=== PATIENT | female | born 1995 | race Caucasian/White ===

== ENCOUNTER → 2018-05-23 16:54 | Outpatient (CLI) | payer OTHER, SELFPAY ==
[2018-05-23 18:31] LABS: hCG Titer Quant., Serum 40669 mIU/mL (<9 non-preg)
== END ==
PROVIDERS: Referring Provider Obstetrics & Gynecology; Visit Provider Obstetrics & Gynecology
DX: Z34.90 Encounter for supervision of normal pregnancy, unspecified, unspecified trimester (principal)
CPT/HCPCS: 36415; 84702

== ENCOUNTER → 2018-06-01 13:56 | Outpatient (CLI) | payer OTHER, SELFPAY ==
--- NOTE | 2018-06-01 13:58 | US_ITS ---
STUDY: FIRST TRIMESTER OBSTETRICAL ULTRASOUND REASON FOR EXAM: Female, 23 years old. dating. LMP: Unknown. TECHNIQUE: Transabdominal TECHNICAL QUALITY: Adequate. PRIOR ULTRASOUND: None. FINDINGS: There is visualization of a single gestational sac in a normal intrauterine position. The mean sac diameter (MSD) measures 3.5 cm, indicating an estimated gestational age (EGA) of 9 weeks, 0 days. The gestational sac shape is within normal limits. There is a visualized yolk sac. The yolk sac measures 3 mm. The placenta is non-visualized. There is visualization of a live embryo. The crown-rump length (CRL) measures 1.78 cm, indicating an estimated gestational age (EGA) of 8 weeks, 5 days. There is demonstrated cardiac activity with a heart rate of 161 bpm. The estimated gestation age (EGA) by US is 8 weeks, 5 days. The estimated date of delivery (ANATOLIY) by US is January 06, 2019. The uterus measures 10.8 cm x 7.4 cm x 5.4 cm. There is no demonstrated uterine fibroid. The cervix is closed. The right ovary measures is not visualized. The left ovary measures 4.1 cm x 1.9 cm x 2.6 cm. There is no left ovarian cyst. There is no visualized left adnexal mass or complex lesion. There is no fluid in the cul de sac. US/Init OB < 14Wks US IMPRESSION: Single live intrauterine gestation with a mean gestational age of 8 weeks and 5 days. Electronically Signed: Geovanny Collado MD at 14:47 EDT Tel [phone], Service support ,
== END ==
PROVIDERS: Referring Provider Nurse Practitioner Women's Health; Visit Provider Nurse Practitioner Women's Health
DX: Z78.9 Other specified health status (principal)
CPT/HCPCS: 76801

== ENCOUNTER → 2018-06-07 17:43 | Outpatient (CLI) | payer OTHER, SELFPAY ==
[2018-06-07 22:20] LABS: Chlamydia Trachomatis by PCR Negative (Negative); Neisserai gonorrhoeae by PCR Negative (Negative); Probe Check PASS; Sample Adequacy Control PASS; Specimen Processing Control PASS
== END ==
PROVIDERS: Referring Provider Obstetrics & Gynecology; Visit Provider Obstetrics & Gynecology
DX: Z34.90 Encounter for supervision of normal pregnancy, unspecified, unspecified trimester (principal)
CPT/HCPCS: 87086; 87088; 87491; 87591

== ENCOUNTER → 2018-06-29 16:52 | Outpatient (CLI) | payer OTHER, SELFPAY ==
[2018-06-29 14:46] VITALS: BMI 25.2
--- OUTSIDE RECORDS SUMMARY | 2018-08-25 02:56 | XMS RPT_ITS ---
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 rest, bathing, stairs, walking, lifting, driving, and follow-up. Patient expresses understanding. SUBJECTIVE: Patient has no current complaints. Tolerating PO intake. Urinating without difficulty. Passing flatus. Pain well controlled with current regimen. Lochia decreasing. Ambulating without difficulty. OBJECTIVE: PHYSICAL EXAM: Heart: RR, S1, S2 Lungs: clear to auscultation Breasts: Nipples intact Abdomen: Soft Fundus firm below umbilicus Non-distended Perineum: Perineum intact Extremities: No calf tenderness LAST VITALS: Pulse BP Resp O2 Sat Temp Pain 83 118/70 18 99 % 36.6 ?C (97.9 ?F) 12/09 HT/WT/BMI: Height Weight BMI 162.6 cm (5' 4) 83 kg (183 lb) 31.41 LABS Diagnostic tests reviewed for today's visit: Most recent labs and imaging results. SIGNATURE: Sonja Vee APRN.CNM PATIENT NAME: Juanita Roberts DATE: October 26, 2017 TIME: 9:08 AM HEMATOCRIT Collected: 10/26/2017 Status: F Source: [place] 6:47 AM [facility] OTHER SIMS REPOSITORY TYPE CODE TESTS RESULT OUT OF REFERENCE UNITS RANGE LAB HCT 36.0-46.0 % Low Hematocrit 33.8 Performed By: #### HCT, HGB #### [place] [phone] HEMOGLOBIN Collected: 10/26/2017 Status: F Source: [place] 6:47 AM [facility] OTHER SIMS REPOSITORY TYPE CODE TESTS RESULT OUT OF REFERENCE UNITS RANGE LAB HGB 11.5-15.5 g/dL Low Hemoglobin 11.4 Performed By: #### HCT, HGB #### [place] [phone] LD NOTE Observed: 10/25/2017 Status: COMPLETED Source: [place] 9:55 AM [facility] OTHER SIMS REPOSITORY HNO ID: [id number] Author: Sonja Vee APRN.CNM Service: Obstetrics Author Type: Boat Canvas Maker And Installer Type: LANDD Delivery Note Filed: 10/25/2017 9:58 AM Note Text: OBSTETRICS DELIVERY SUMMARY - VAGINAL DELIVERY Gestational Age at Delivery: 37w3d Service Date: 10/25/2017 Service Time: 9:55 AM Maninder Roberts [[id number]] Labor Events Rupture Date: 10/24/17 Rupture Time: 1737 Rupture Type: AROM Fluid Color: Clear Induction: Yes Induction Method: Oxytocin Episiotomy/Laceration: Episiotomy: None Lacerations: None Estimated Blood Loss (mL): Estimated Blood Loss (mL): 250 Date and Time of : Date of : 10/25/17 Time of : 0853 Delivery Information: Primary Reason for Delivery : Labor Additional Clinicial Indicator(s) for delivery: Hypertension Delivery type: Vaginal, Spontaneous Delivery Presentation: Vertex Shoulder Dystocia Present: No Vacuum Used: No Forceps Used: No Cord: Complications: Nuchal without Compression Nuchal Cord Findings: x 1 Delayed Cord Clamping: No Placenta: Delivered: 10/25/2017 9:01 AM Removal: Spontaneous Appearance: Intact Anesthesia: Method: None Measurements, Apgars: Code [place] Called: No A digital ?sweep? of the vaginal canal was performed by Sonja Vee APRN.CNM and it was ascertained that no instruments or other foreign bodies are retained within the cavity. Mother and baby are stable and bonding and skin to skin. Baby is in mother's arms. SIGNATURE: Sonja Vee APRN.CNM PATIENT NAME: Juanita Roberts DATE: October 25, 2017 TIME: 9:55 AM BLOOD GASES,CORD,ART Collected: 10/25/2017 Status: F Source: [place] (FOR [facility]) 8:57 AM CLINIC OTHER SIMS REPOSITORY TYPE CODE TESTS RESULT OUT OF REFERENCE UNITS RANGE LAB PHC 7.18-7.38 pH 7.38 LAB PCO2C 32-66 mm Hg pCO2 35 LAB PO2C 5.5-30.5 mm Hg pO2 High 44 LAB HCO3C 17-27 mmol/L Bicarbonate 21 LAB BDC 4.4-8.3 mmol/L Low Base Deficit 3.4 Performed By: #### CO[place] #### [place] [address] PROGRESS Observed: 10/25/2017 Status: COMPLETED Source: [place] 8:50 AM CLINIC OTHER SIMS REPOSITORY HNO ID: [id number] Author: Sonja Martins (Chantell) KENIA Vee Service: Obstetrics Author Type: Boat Canvas Maker And Installer Type: Progress Notes Filed: 10/25/2017 9:13 AM Note Text: Called to room due to patient feeling urge to push. Checked by RN and found to have an anterior lip. CTX q 2-4 min FHR 140s no accels no decels moderate variability VE: complete/ + 2 Assessment:Complete/ +2 Fetus Category I Plan: Push to delivery. Sonja Vee APRN.CNM PROGRESS Observed: 10/25/2017 Status: COMPLETED Source: [place] 5:45 AM CLINIC OTHER CAMPUS REPOSITORY HNO ID: [id number] Author: Tessa Velasquez APRN.CNM Service: Obstetrics Author Type: Boat Can[employer] Maker And Installer Type: Progress Notes Filed: 10/25/2017 7:00 AM Note Text: OBSTETRICS INTRAPARTUM PROGRESS NOTE SERVICE DATE: October 25, 2017 SERVICE TIME: 0545 Subjective Has pain with contractions but declines intervention. Objective LAST VITALS: Pulse BP Resp O2 Sat Temp Pain 96 141/71 20 100 % 37 ?C (98.6 ?F) 04/11 PHYSICAL EXAM: Cervical Exam: unchanged. CERVICAL EXAM: Last Exam Notes: Dilation: 6 (10/25/17 0544 : Kelly Becerril RN) Effacement (%): 100 (10/25/17 05 : Kelly Becerril RN) Station: 1 (10/25/17 05 : Kelly Becerril RN) Presentation: Vertex (10/25/17 0133 : Kelly Becerril RN) MEMBRANES: Status: Membrane Status: Artificial (10/24/17 173 : Madyson Dong RN) Rupture Date: 10/24/17 (10/24/17 173 : Madyson Dong RN) Rupture Time: 173 (10/24/17 173 : Madyson Dong RN) Amniotic Fluid Color: Clear (10/24/17 173 : Madyson Dong RN) Amniotic Fluid Amount: Scant (10/24/17 173 : Madyson Dong RN) Additional Findings: None MONITORING Baseline: 150 bpm (10/25/17 0630 : Kelly Becerril RN) Variability: Moderate (6-25 bpm) (10/25/17 0630 : Kelly Becerril RN) Accelerations: Present (10/25/1730 : Kelly Becerril RN) Decelerations: Decelerations: None (10/25/1730 : Kelly Becerril RN) Contractions: Regular (10/25/1730 : Kelly Becerril RN) Frequency: 2-3 (10/25/1730 : Kelly Becerril RN) NST Interpretation: FHR Category: 1 (10/25/17 0630 : Kelly Becerril RN) FHR Category: Category I LABS Diagnostic tests reviewed for today's visit: No new labs Assessment/Plan 22 year old EGA:37w3d. Admitted for induction of labor for Gestational HTN Active Problems: Gestational hypertension POA: Yes Assessment AND Plan: Discussed use of epidural anesthesia with pt who was not receptive to same. She would like to continue current management. BPs remain stable (last was 118/78). She is asymptomatic. Temp is 37. Will monitor and support.* Resolved Problems: * No resolved hospital problems. * SIGNATURE: Tessa Velasquez APRN.CNM PATIENT NAME: Juanita Roberts DATE: October 25, 2017 TIME: 6:57 AM PAGER/CONTACT #: PROGRESS Observed: 10/25/2017 Status: COMPLETED Source: [place] 4:53 AM CLINIC OTHER CAMPUS REPOSITORY HNO ID: [id number] Author: Tessa Velasquez APRN.CNM Service: Obstetrics Author Type: Boat Can[employer] Maker And Installer Type: Progress Notes Filed: 10/25/2017 4:56 AM Note Text: OBSTETRICS INTRAPARTUM PROGRESS NOTE SERVICE DATE: October 25, 2017 SERVICE TIME: 0453 Subjective Has pain with contractions but declines intervention. and utilizing shower for pain management. Objective LAST VITALS: Pulse BP Resp O2 Sat Temp Pain 98 130/80 20 100 % 37.3 ?C (99.1 ?F) 9/10 PHYSICAL EXAM: Uterus: soft, NT, EFW 6#5oz#, Cephalic by Baljit's CERVICAL EXAM: Last Exam Notes: Dilation: 6 (10/25/17303 : Angela Scott RN) Effacement (%): 100 (10/25/17303 : Angela Scott RN) Station: 1 (10/25/17303 : Angela Scott RN) Presentation: Vertex (10/25/17 0133 : Kelly Becerril RN) MEMBRANES: Status: Membrane Status: Artificial (10/24/17 1736 : Madyson Dong RN) Rupture Date: 10/24/17 (10/24/17 173 : Madyson Dong RN) Rupture Time: 1737 (10/24/17 173 : Madyson Dong RN) Amniotic Fluid Color: Clear (10/24/171735 : Madyson Dong RN) Amniotic Fluid Amount: Scant (10/24/171735 : Madyson Dong RN) Additional Findings: None MONITORING Baseline: 150 bpm (10/25/17 0430 : Kelly Becerril RN) Variability: Moderate (6-25 bpm) (10/25/17 0430 : Kelly Becerril RN) Accelerations: Present (10/25/17429 : Kelly Becerril RN) Decelerations: Decelerations: None (10/25/170 : Kelly Becerril RN) Contractions: Regular (10/25/17429 : Kelly Becerril RN) Frequency: 2-3 (10/25/170 : Kelly Becerril RN) NST Interpretation: FHR Category: 1 (10/25/17429 : Kelly Becerril RN) FHR Category: Category I LABS Diagnostic tests reviewed for today's visit: No new labs Assessment/Plan 22 year old EGA:37w3d. Admitted for induction of labor for Gestational HTN Active Problems: Gestational hypertension POA: Yes Assessment AND Plan: Continue to support and monitor. Resolved Problems: * No resolved hospital problems. * May consider epidural discussion if no change in cervix or labor by 6. AROM at approximately 1745 SIGNATURE: Tessa Velasquez APRN.CNM PATIENT NAME: Juanita Roberts DATE: October 25, 2017 TIME: 4:53 AM PAGER/CONTACT #: PROGRESS Observed: 10/25/2017 Status: COMPLETED Source: [place] 3:16 AM CLINIC OTHER CAMPUS REPOSITORY HNO ID: [id number] Author: Tessa Velasquez APRN.CNM Service: Obstetrics Author Type: Boat Canvas Maker And Installer Type: Progress Notes Filed: 10/25/2017 3:18 AM Note Text: OBSTETRICS INTRAPARTUM PROGRESS NOTE SERVICE DATE: October 25, 2017 SERVICE TIME: 0305 Subjective Has pain with contractions but declines intervention. and currently using N2O Objective LAST VITALS: Pulse BP Resp O2 Sat Temp Pain 99 141/83 20 100 % 36.9 ?C (98.4 ?F) 02/08 PHYSICAL EXAM: Extremities: 2+ edema Cervical Exam: 6/100/0-+1 CERVICAL EXAM: Last Exam Notes: Dilation: 6 (10/25/17 030 : Angela Scott RN) Effacement (%): 100 (10/25/17303 : Angeal Scott RN) Station: 1 (10/25/17303 : Angela Scott RN) Presentation: Vertex (10/25/17 0133 : Kelly Becerril RN) MEMBRANES: Status: Membrane Status: Artificial (10/24/17 173 : Madyson Dong RN) Rupture Date: 10/24/17 (10/24/171735 : Madyson Dong RN) Rupture Time: 173 (10/24/17 173 : Madyson Dong RN) Amniotic Fluid Color: Clear (10/24/171735 : Madyson Dong RN) Amniotic Fluid Amount: Scant (10/24/171735 : Madyson Dong RN) Additional Findings: None MONITORING Baseline: 145 bpm (10/25/17 0230 : Kelly Becerril RN) Variability: Moderate (6-25 bpm) (10/25/17 0230 : Kelly Becerril RN) Accelerations: Present (10/25/17 0230 : Kelly Becerril RN) Decelerations: Decelerations: None (10/25/17 0230 : Kelly Becerril RN) Contractions: Regular (10/25/17 0230 : Kelly Becerril RN) Frequency: 1.5-3 (10/25/17 0230 : Kelly Becerril RN) NST Interpretation: FHR Category: 1 (03/229 : DUSTIN Alexander Rn FHR Category: Category I LABS Diagnostic tests reviewed for today's visit: Most recent labs and imaging results. Assessment/Plan 22 year old EGA:37w3d. Admitted for induction of labor for Gestational HTN Active Problems: Gestational hypertension POA: Yes Assessment AND Plan: Induce with pitocin at this time. Monitor carefully. Resolved Problems: * No resolved hospital problems. * SIGNATURE: Tessa Velasquez APRN.CNM PATIENT NAME: Juanita Roberts DATE: October 25, 2017 TIME: 3:16 AM PAGER/CONTACT #: PROGRESS Observed: 10/25/2017 Status: COMPLETED Source: [place] 2:[address] [facility] REPOSITORY HNO ID: [id number] Author: Tessa Lord) KENIA Velasquez Service: Obstetrics Author Type: Boat Canvas Maker And Installer Type: Progress Notes Filed: 10/25/2017 2:07 AM Note Text: Pt is breathing well through contractions and states, I'm stuck, Yun. I'm stuck at 5cm. FHR is category 1. Last VE by RN shows 5/70/-1. Last temp was 37.9. Pt is encouraged and told that she needs to keep sounds low. Order placed for N2O. Will evaluate cervix in 2 hours. Monitor temp closely. PROGRESS Observed: 10/24/2017 Status: COMPLETED Source: [place] 11:[address] [facility] REPOSITORY HNO ID: [id number] Author: Erna Perdue APRN.CNM Service: Obstetrics Author Type: Boat Canvas Maker And Installer Type: Progress Notes Filed: 10/24/2017 11:05 PM Note Text: OBSTETRICS INTRAPARTUM PROGRESS NOTE SERVICE DATE: October 24, 2017 SERVICE TIME: 11:02 PM Subjective Has pain with contractions but declines intervention. Objective LAST VITALS: Pulse BP Resp O2 Sat Temp Pain 94 133/70 20 100 % 37.6 ?C (99.7 ?F) 02/08 PHYSICAL EXAM: Uterus: soft, NT CERVICAL EXAM: Last Exam Notes: Dilation: 4.5 (10/24/172111 : Kelly Becerril RN) Effacement (%): 70 (10/24/172111 : Kelly Becerril RN) Station: -2 (10/24/172111 : Kelly Becerril RN) Presentation: Vertex (10/24/17 1635 : Candy Lord) KENIA Cedeño) MEMBRANES: Status: Membrane Status: Artificial (10/24/17 173 : Madyson Dong RN) Rupture Date: 10/24/17 (10/24/171735 : Madyson Dong RN) Rupture Time: 1736 (10/24/17 173 : Madyson Dong RN) Amniotic Fluid Color: Clear (10/24/171735 : Madyson Dong RN) Amniotic Fluid Amount: Scant (10/24/171735 : Madyson Dong RN) Additional Findings: None MONITORING Baseline: 155 bpm (10/24/172229 : Kelly Becerril RN) Variability: Moderate (6-25 bpm) (10/24/172229 : Kelly Becerril RN) Accelerations: Present (10/24/172229 : Kelly Becerril RN) Decelerations: Decelerations: None (10/24/172229 : Kelly Becerril RN) Contractions: Regular (10/24/172229 : Kelly Becerril RN) Frequency: 2-3 (10/24/172229 : Kelly Becerril RN) NST Interpretation: FHR Category: 1 (10/24/172229 : Kelly Becerril RN) FHR Category: Category I LABS Diagnostic tests reviewed for today's visit: No new labs Assessment/Plan 22 year old EGA:37w2d. Admitted for induction of labor for Gestational HTN No cervical change present Contractions remain mild Plan for pitocin augmentation Risks and benefits reviewed, patient in agreement Blood pressure remain mild Anticipate SIGNATURE: Erna Perdue APRN.CNM PATIENT NAME: Juanita Roberts DATE: October 24, 2017 TIME: 11:01 PM PAGER/CONTACT #: PROGRESS Observed: 10/24/2017 Status: COMPLETED Source: [place] 7:55 PM CLINIC OTHER CAMPUS REPOSITORY HNO ID: [id number] Author: Erna Perdue APRN.CNM Service: Obstetrics Author Type: Boat Canvas Maker And Installer Type: Progress Notes Filed: 10/24/2017 7:58 PM Note Text: OBSTETRICS INTRAPARTUM PROGRESS NOTE SERVICE DATE: October 24, 2017 SERVICE TIME: 7:55 PM Subjective Has pain with contractions but declines intervention. Objective LAST VITALS: Pulse BP Resp O2 Sat Temp Pain 86 137/83 18 100 % 36.3 ?C (97.3 ?F) 01/09 PHYSICAL EXAM: Uterus: soft, NT CERVICAL EXAM: Last Exam Notes: Dilation: 4.5 (10/24/17 1736 : Madyson Dong RN) Effacement (%): 70 (10/24/17 1736 : Madyson Dong RN) Station: -1 (10/24/17 173 : Madyson Dong RN) Presentation: Vertex (10/24/17 1635 : Candy Cedeño APRN.CNM) MEMBRANES: Status: Membrane Status: Artificial (10/24/17 173 : Madyson Dong RN) Rupture Date: 10/24/17 (10/24/17 173 : Madyson Dong RN) Rupture Time: 1736 (10/24/17 173 : Madyson Dong RN) Amniotic Fluid Color: Clear (10/24/17 173 : Madyson Dong RN) Amniotic Fluid Amount: Scant (10/24/17 173 : Madyson Dong RN) Additional Findings: None MONITORING Baseline: 135 Variability: Moderate (6-25 bpm) Accelerations: Present Decelerations: None Contractions: Regular Frequency: Every 1-4 minutes NST Interpretation: FHR Category: Category I LABS Diagnostic tests reviewed for today's visit: No new labs Assessment/Plan 22 year old EGA:37w2d. Admitted for induction of labor for Gestational HTN Patient is uncomfortable with contractions since ROM Category one tracing Will continue with expectant management Anticipate SIGNATURE: Erna Perdue APRN.CNM PATIENT NAME: Juanita Roberts DATE: October 24, 2017 TIME: 7:55 PM PAGER/CONTACT #: PROGRESS Observed: 10/24/2017 Status: COMPLETED Source: [place] 5:43 PM CLINIC OTHER CAMPUS REPOSITORY O ID: [id number] Author: Candy Cedeño APRN.CNM Service: Obstetrics Author Type: Boat Canvas Maker And Installer Type: Progress Notes Filed: 10/24/2017 5:47 PM Note Text: OBSTETRICS INTRAPARTUM PROGRESS NOTE SERVICE DATE: October 24, 2017 SERVICE TIME: 1744 Subjective Patient resting with peanut ball, auto technician at bedside. Objective LAST VITALS: Pulse BP Resp O2 Sat Temp Pain 89 124/81 16 100 % 36.7 ?C (98.1 ?F) 12/09 PHYSICAL EXAM: VE: 4-5cm/70%/-1, AROM clear fluid, vtx CERVICAL EXAM: Last Exam Notes: Dilation: 4.5 (10/24/17 1736 : Madyson Dong RN) Effacement (%): 70 (10/24/17 173 : Madyson Dong RN) Station: -1 (10/24/17 1736 : Madyson Dong RN) Presentation: Vertex (10/24/17 1635 : Candy Cedeño APRN.CNM) MEMBRANES: Status: Membrane Status: Artificial (10/24/17 173 : Madyson Dong RN) Rupture Date: 10/24/17 (10/24/17 173 : Madyson Dong RN) Rupture Time: 173 (10/24/17 1736 : Madyson Dong RN) Amniotic Fluid Color: Clear (10/24/17 1736 : Madyson Dong RN) Amniotic Fluid Amount: Scant (10/24/17 1736 : Madyson Dong RN) Additional Findings: AROM performed during this exam. Head well applied to cervix. heart tones reassuring before and after procedure. MONITORING Baseline: 140 Variability: moderate Accelerations: present Decelerations: none Contractions: irregular Frequency: NST Interpretation: Cat 1 FHR Category: 1 FHR Category: Category I LABS Diagnostic tests reviewed for today's visit: No new labs Assessment/Plan 22 year old EGA:37w2d. Admitted for induction of labor for Gestational HTN Active Problems: Gestational hypertension POA: Yes FHT reassuring at present. Contractions spaced out over the past hour, discussed options, pt prefers AROM. Discussed increased risk of infection prior to onset good labor, agrees to start Pitocin if no regular contractions or change of cervix in the next few hours. SIGNATURE: Candy Cedeño APRN.CNM APRN.CNP PATIENT NAME: Juanita Roberts DATE: October 24, 2017 TIME: 5:44 PM PAGER/CONTACT #: [phone] PROGRESS Observed: 10/24/2017 Status: COMPLETED Source: [place] 4:43 PM CLINIC OTHER CAMPUS REPOSITORY O ID: [id number] Author: Candy Cedeño APRN.CNM Service: Obstetrics Author Type: Boat Canvas Maker And Installer Type: Progress Notes Filed: 10/24/2017 4:48 PM Note Text: OBSTETRICS INTRAPARTUM PROGRESS NOTE SERVICE DATE: October 24, 2017 SERVICE TIME: 1640 Subjective Pt uncomfortable with contractions, tolerable. Just came out of bathroom and reports faith bulb fell out. Objective LAST VITALS: Pulse BP Resp O2 Sat Temp Pain 89 124/81 16 100 % 36.7 ?C (98.1 ?F) 12/09 PHYSICAL EXAM: Cervical Exam: 4-5cm/70%/-1, intact, vtx CERVICAL EXAM: Last Exam Notes: Dilation: 4.5 (10/24/17 1635 : Candy Cedeño APRN.CNM) Effacement (%): 70 (10/24/17 1635 : Candy Cedeño APRN.CNM) Station: -1 (10/24/17 163 : Candy Cedeño APRN.CNM) Presentation: Vertex (10/24/17 163 : Candy Cedeño APRN.CNM) MEMBRANES: Status: Membrane Status: Intact (10/24/17 1635 : Candy Cedeño APRN.CNM) Additional Findings: None MONITORING Baseline: 140 Variability: moderate Accelerations: present Decelerations: occasional variable Contractions: regular Frequency: 2-4 min NST Interpretation: Cat 2 FHR Category: FHR Category: Category II LABS Diagnostic tests reviewed for today's visit: No new labs Assessment/Plan 22 year old EGA:37w2d. Admitted for induction of labor for Gestational HTN Active Problems: Gestational hypertension POA: Category 2 FHT secondary to occasional short variables, otherwise overall reassuring with moderate variability and +accelerations. Contractions continue, continue to monitor and re-evaluate in 2-3 hours. Consider AROM or oxytocin, pt prefers AROM if able. SIGNATURE: Candy Cedeño APRN.CNM APRN.PROVINCE ARCHIVIST PATIENT NAME: Juanita Roberts DATE: October 24, 2017 TIME: 4:43 PM PAGER/CONTACT #: PROGRESS Observed: 10/24/2017 Status: COMPLETED Source: [place] 3:09 PM CLIN[facility] OTHER CAMPUS REPOSITORY HNO ID: [id number] Author: Candy Lord) KENIA Cedeño Service: Obstetrics Author Type: Boat Canvas Maker And Installer Type: Progress Notes Filed: 10/24/2017 3:15 PM Note Text: OBSTETRICS INTRAPARTUM PROGRESS NOTE SERVICE DATE: October 24, 2017 SERVICE TIME: 1430 Subjective Pt reports contractions have been getting more uncomfortable for the past hour. Currently sitting in bedside chair with auto technician providing leg massage. Objective LAST VITALS: Pulse BP Resp O2 Sat Temp Pain 89 124/81 16 100 % 36.4 ?C (97.5 ?F) 10/09 PHYSICAL EXAM: Cervical Exam: deferred CERVICAL EXAM: Last Exam Notes: Dilation: 1 (10/24/17813 : Monica Dodd) German, RN) Effacement (%): 70 (10/24/17813 : Monica ThompsonRn) German, RN) Station: -1 (10/24/17813 : Monica Dodd) German, RN) Presentation: (not recorded) MEMBRANES: Status: Membrane Status: Intact (10/24/17813 : Monica Dodd) German, RN) Additional Findings: Traction on faith secured to leg, in place. MONITORING Baseline: 145 bpm (10/24/17 1459 : Monica Dodd) German, RN) Variability: Moderate (6-25 bpm) (10/24/17 1459 : Monica Dodd) English RN) Accelerations: Present (10/24/17 1459 : Monica Dodd) English RN) Decelerations: Decelerations: (!) Variable (10/24/17 1430 : Monica Dodd) English RN) Contractions: Regular (10/24/17 1459 : Monica Dodd) English RN) Frequency: 1-2.5 (10/24/17 1459 : Monica Dodd) English RN) NST Interpretation: FHR Category: (!) 2 (10/24/17 1459 : Monica Dodd) English RN) FHR Category: Category I overall with episodic Cat 2 consisting of short variables lasting <10 seconds Moderate variability and +accelerations noted. LABS Diagnostic tests reviewed for today's visit: Most recent labs and imaging results. Assessment/Plan 22 year old EGA:37w2d. Admitted for induction of labor for Gestational HTN Active Problems: Gestational hypertension Reassuring FHT, continue to monitor. Regular contractions persist, 1-3 minutes. Faith bulb in place. Will re-assess at approx 1630 when bulb will have been in place approx 8 hours at that time. Consider starting low-dose oxytocin to augment strength, although currently too frequent and pt prefers to defer. B/P are stable. SIGNATURE: Candy Cedeño APRN.CNM APRN.CNP PATIENT NAME: Juanita Roberts DATE: October 24, 2017 TIME: 3:09 PM PAGER/CONTACT #: PROGRESS Observed: 10/24/2017 Status: COMPLETED Source: [place] 12:01 PM CLIN[facility] OTHER CAMPUS REPOSITORY O ID: [id number] Author: Candy Cedeño APRN.CNM Service: Obstetrics Author Type: Boat Canvas Maker And Installer Type: Progress Notes Filed: 10/24/2017 12:05 PM Note Text: OBSTETRICS INTRAPARTUM PROGRESS NOTE SERVICE DATE: October 24, 2017 SERVICE TIME: 1200p Subjective Patient with no complaints. and feeling some cramping, less than immediately after cervical bulb placement. On birthing ball at present. Objective LAST VITALS: Pulse BP Resp O2 Sat Temp Pain 75 136/86 16 100 % 36.4 ?C (97.5 ?F) 12/09 PHYSICAL EXAM: Cervical Exam: deferred CERVICAL EXAM: Last Exam Notes: Dilation: 1 (10/24/17813 : Monica Asencio (Rn) German, RN) Effacement (%): 70 (10/24/17813 : Monica Asencio (Rn) German, RN) Station: -1 (10/24/1714 : Monica Asencio (Rn) German, RN) Presentation: (not recorded) MEMBRANES: Status: Membrane Status: Intact (10/24/17813 : Monica Asencio (Rn) German, RN) Additional Findings: Cervical bulb in place. MONITORING Baseline: 130 bpm (10/24/17 1130 : Madyson Dodd) RAMIRO Dong) Variability: Moderate (6-25 bpm) (10/24/17 1130 : Madyson Dodd) RAMIRO Dong) Accelerations: Present (10/24/17 1130 : Madyson Dodd) RAMIRO Dong) Decelerations: Decelerations: None (10/24/17 1130 : Madyson Dodd) RAMIRO Dong) Contractions: Irregular (10/24/17 1130 : Madyson Dodd) Letitia, RN) Frequency: 1.3.5 (10/24/17 1130 : Madyson Dong RN) NST Interpretation: FHR Category: 1 (10/24/17 1130 : Madyson Dong RN) FHR Category: Category I LABS Diagnostic tests reviewed for today's visit: Most recent labs and imaging results. Assessment/Plan 22 year old EGA:37w2d. Admitted for induction of labor for Gestational HTN Active Problems: Gestational hypertension POA: Yes Category 1 FHT, continue to monitor. Good response to cervical bulb and previous cytotec. Silvana too frequently for cytotec, offered low dose pitocin with bulb, pt prefers to avoid at this time. SIGNATURE: Candy Cedeño APRN.CHANTELL GEORGE.DIANE PATIENT NAME: Juanita Roberts DATE: October 24, 2017 TIME: 12:02 PM PAGER/CONTACT #: [phone] PROGRESS Observed: 10/24/2017 Status: COMPLETED Source: [place] 8:49 AM [facility] OTHER [facility] REPOSITORY HNO ID: [id number] Author: Candy Lord) KENIA Cedeño Service: Obstetrics Author Type: Boat Canvas Maker And Installer Type: Progress Notes Filed: 10/24/2017 9:27 AM Note Text: OBSTETRICS INTRAPARTUM PROGRESS NOTE SERVICE DATE: October 24, 2017 SERVICE TIME: 0845a Subjective Pt generally comfortable, some cramping. at bedside. Objective LAST VITALS: Pulse BP Resp O2 Sat Temp Pain 75 121/71 16 100 % 36.6 ?C (97.9 ?F) 10/09 PHYSICAL EXAM: Cervical Exam: 1cm/70%/-1, intact, vtx CERVICAL EXAM: Last Exam Notes: Dilation: 1 (10/24/17813 : Monica Dodd) German, RN) Effacement (%): 70 (10/24/17813 : Monica Dodd) German, RN) Station: -1 (10/24/17813 : Monica Dodd) German, RN) Presentation: (not recorded) MEMBRANES: Status: Membrane Status: Intact (10/24/17813 : Monica Dodd) German, RN) Additional Findings: Faith bulb placed in the cervix Speculum exam done, no lesions noted MONITORING Baseline: 140 bpm (10/24/17829 : Monica Dodd) German, RN) Variability: Moderate (6-25 bpm) (10/24/17829 : Monica Dodd) German, RN) Accelerations: Present (10/24/17829 : Monica Dodd) German, RN) Decelerations: Decelerations: None (10/24/17829 : Monica Dodd) German, RN) Contractions: Regular (10/24/17829 : Monica Dodd) German, RN) Frequency: 1-4 (10/24/17829 : Monica Dodd) German, RN) NST Interpretation: FHR Category: 1 (10/24/17829 : Monica Dodd) English RN) FHR Category: Category I LABS Diagnostic tests reviewed for today's visit: Most recent labs and imaging results. Assessment/Plan 22 year old EGA:37w2d. Admitted for induction of labor for gestational hypertension. Active Problems: Gestational hypertension Category 1 FHT, continue to monitor. Good response to cytotec, now silvana every 1-4 minutes, cervical bulb placed to traction to leg for increased patient mobility. Consider adding cytotec if contractions space out. Encouraged maternal position changes. Dr. Ham updated on patient status. SIGNATURE: Candy Cedeño APRN.CHANTELL GEORGE.DIANE PATIENT NAME: Juanita Roberts DATE: October 24, 2017 TIME: 8:49 AM PAGER/CONTACT #: [phone] NURSING PROG Observed: 10/24/2017 Status: COMPLETED Source: [place] 7:[address] [facility] REPOSITORY HNO ID: [id number] Author: Quincy Dodd) RAMIRO Rust Service: Nursing Author Type: Registered Nurse Type: Nursing Progress Note Filed: 10/24/2017 7:09 AM Note Text: Nursing Progress Note Patient Name: Juanita Roberts Patient Location: [place] [address]* Daily Note: Report given to Trish Zhou RN. Care of patient transferred at this time. Intermittent Category II tracing reviewed with oncoming shift RN. This note was completed by: Quincy Rust RN PROGRESS Observed: 10/24/2017 Status: COMPLETED Source: [place] 6:[address] [facility] REPOSITORY HNO ID: [id number] Author: Mikayla Watson APRN.CNM Service: Obstetrics Author Type: Boat Canvas Maker And Installer Type: Progress Notes Filed: 10/24/2017 6:46 AM Note Text: Patient hungry and asking for breakfast. Tracing overall reassuring and patient with no complaints of labor. Patient to have breakfast. Will assess for need for continued ripening when next Cytotec is due. Mikayla Watson APRN.CNM PROGRESS Observed: 10/24/2017 Status: COMPLETED Source: [place] 4:00 AM CLINIC OTHER CAMPUS REPOSITORY O ID: [id number] Author: Mikayla Watson APRN.CNM Service: Obstetrics Author Type: Boat Canvas Maker And Installer Type: Progress Notes Filed: 10/24/2017 4:09 AM Note Text: OBSTETRICS INTRAPARTUM PROGRESS NOTE SERVICE DATE: October 24, 2017 SERVICE TIME: 4:00 AM Subjective Patient with no complaints. No longer able to sleep due to being uncomfortable in the bed. Standing and moving at bedside and reporting intermittent tightening. Patient denies pain. Objective LAST VITALS: Pulse BP Resp O2 Sat Temp Pain 87 111/56 17 100 % 36.8 ?C (98.2 ?F) 10/09 PHYSICAL EXAM: Heart: RR Abdomen: soft, nontender, no masses Uterus: soft, NT Extremities: 1+ edema CERVICAL EXAM: Last Exam Notes: Dilation: Closed (10/23/17 1730 : Tatianna Cope RN) Effacement (%): 0 (10/23/17 1730 : Tatianna Cope RN) Station: High (10/23/17 1730 : Tatianna Cope RN) Presentation: (not recorded) MEMBRANES: Status: Additional Findings: None MONITORING Baseline: 135 bpm (10/24/17 0400 : Leeanne Craig RN) Variability: Moderate (6-25 bpm) (10/24/17 0400 : Leeanne Dodd) RAMIRO Craig) Accelerations: Present (10/24/17 0400 : Leeanne Craig RN) Decelerations: Decelerations: None (10/24/17 0400 : Leeanne Dodd) RAMIRO Craig) Contractions: Regular (10/24/17 0400 : Leeanne Dodd) RAMIRO Craig) Frequency: 2-6 (10/24/17 0400 : Leeanne Craig RN) NST Interpretation: FHR Category: 1 (10/24/17 0400 : Leeanne Craig RN) FHR Category: Category I LABS Diagnostic tests reviewed for today's visit: No new labs Assessment/Plan 22 year old EGA:37w2d. Admitted for induction of labor for gHTN. S/P cytotec x 2. Will proceed with additional dose of cytotec now. Continue close monitoring of maternal/ status Anticipate Plan discussed with Dr. Goyal who agrees with this management SIGNATURE: Mikayla Watson APRN.CNM PATIENT NAME: Juanita Roberts DATE: October 24, 2017 TIME: 4:00 AM PROGRESS Observed: 10/24/2017 Status: COMPLETED Source: [place] 12:11 AM [facility]IN[facility] OTHER CAMPUS REPOSITORY HNO ID: [id number] Author: Mikayla Lord) KENIA Watson Service: Obstetrics Author Type: Boat Canvas Maker And Installer Type: Progress Notes Filed: 10/24/2017 12:14 AM Note Text: OBSTETRICS INTRAPARTUM PROGRESS NOTE SERVICE DATE: October 24, 2017 SERVICE TIME: 12:11 AM Subjective Patient with no complaints., No current leaking of fluid. and No contractions. FOB at bedside. Patient not sleeping, but has taken benadryl to aid this. Objective LAST VITALS: Pulse BP Resp O2 Sat Temp Pain 101 119/71 16 100 % 37 ?C (98.6 ?F) 0/10 PHYSICAL EXAM: General: WD, WN Heart: RR Lungs: normal effort Abdomen: soft, nontender, no masses Uterus: soft, NT Extremities: 1+ edema CERVICAL EXAM: Last Exam Notes: Dilation: Closed (10/23/17 1730 : Tatianna Cope RN) Effacement (%): 0 (10/23/17 1730 : Tatianna Cope RN) Station: High (10/23/17 1730 : Tatianna Cope RN) Presentation: (not recorded) MEMBRANES: Status: Additional Findings: None MONITORING Baseline: 125 Variability: Moderate (6-25 bpm) Accelerations: Present Decelerations: None Contractions: Not present Frequency: irritablity observed NST Interpretation: FHR Category: Category I LABS Diagnostic tests reviewed for today's visit: Most recent labs and imaging results. Assessment/Plan 22 year old EGA:37w2d. Admitted for induction of labor for gHTN. S/P cytotec x1. Will proceed with additional dose of cytotec now. Continue close monitoring of maternal/ status. Anticipate SIGNATURE: Mikayla Watson APRN.CNM PATIENT NAME: Juanita Roberts DATE: October 24, 2017 TIME: 12:11 AM ANES PREOP Observed: 10/23/2017 Status: COMPLETED Source: [place] 9:51 PM [facility]IN[facility] OTHER [facility]AMPUS REPOSITORY HNO ID: [id number] Author: Elva Begum (Aa) Service: Anesthesiology Author Type: Saw Boss Type: Anesthesia PreOp Filed: 10/23/2017 9:52 PM Note Text: OB ANESTHESIA PRE-PROCEDURE ASSESSMENT SERVICE DATE: 10/23/2017 SERVICE TIME: 2139 Estimated body mass index is 31.41 kg/(m2) as calculated from the following: Height as of this encounter: 162.6 cm (5' 4). Weight as of this encounter: 83 kg (183 lb). ASA Class: 2 Adequate NPO Status: ate at 1900, clear liquids at bedside ALLERGIES Allergen Reactions - Amoxicillin Rash Airway Assessment: MP 3; Neck ROM: Full ROM without neurologic symptoms; Airway Evaluation: No significant abnormalities Dentition: Teeth intact Symptoms of Sleep Apnea: Denies Hematocrit Date Value Ref Range Status 10/23/2017 39.1 36.0 - 46.0 % Final Platelet Count Date Value Ref Range Status 10/23/2017 234 150 - 400 k/uL Final Creatinine Date Value Ref Range Status 10/23/2017 0.59 (L) 0.70 - 1.40 mg/dL Final Vitals: 10/23/17 1723 10/23/17195810/23/17199910/23/172031 BP: 141/88 130/88 119/71 Pulse: 101 97 101 Resp: 16 17 16 Temp: 37 ?C (98.6 ?F) TempSrc: Oral SpO2: 100% Weight: Height: Previous Anesthesia: No history of adverse event Family history of anesthetic problems: None Additional Physical Exam: Lungs: Clear to auscultation. Breath Sounds Equal: Yes Cardiac: Regular rhythm Additional Pertinent Findings: None OBSTETRIC HISTORY: ACTIVE PROBLEM LIST Herpes Simplex Virus (Hsv) Infection Gestational Hypertension Previous OB Anesthetic: None Past Obstetric History: none Current Obstetric Problems/ Important Considerations: Gestational Hypertension GERD: GERD well controlled with no positional symptoms Anesthetic Risks, Benefits, Alternatives, Personnel and Consent Discussed. Separate Consent Signed at this Interview: Yes Blood Products: Will accept Blood/Blood Products ANESTHETIC PLAN: plans to go [facility] Pain Management Plan: Parenteral or Oral [facility] Chart Review ACTIVE PROBLEM LIST Herpes Simplex Virus (Hsv) Infection Gestational Hypertension PAST MEDICAL HISTORY Diagnosis Date - Asthma sports induced - Gestational hypertension 10/23/2017 - Herpes simplex virus (HSV) infection - Mental disorder - Migraine with aura, without mention of intractable migraine without mention of status migrainosus MIGRAINE CLASSICAL - PMH - PAST MEDICAL HISTORY OF 02/21/09 normal color vision - PMH - PAST MEDICAL HISTORY OF left arm fracture x 3 - PMH - PAST MEDICAL HISTORY OF left and right weak ligaments in shoulder - Trauma broken wrist and foot PAST SURGICAL HISTORY Procedure Laterality Date - PAST SURGICAL HISTORY OF left arm reset - REMOVAL ADENOIDS,PRIMARY,<12 Y/O Adenoidectomy - REMOVAL OF TONSILS,<12 Y/O Tonsillectomy FAMILY HISTORY Problem Relation Age of Onset - Thyroid Mother - Bi-Polar [OTHER] Mother - None Father - Thyroid Sister - Stroke Paternal Grandmother - Heart Paternal Grandmother - Heart Paternal Grandfather - Bipolar [OTHER] Paternal Grandfather - Hypertension Maternal Grandfather - Heart Maternal Grandfather - Stroke Maternal Grandmother - hypotension [OTHER] Maternal Grandmother - Breast Cancer Paternal Aunt Great Aunt - Breast Cancer Maternal Aunt Great Aunt Social History Substance Use Topics - Smoking status: Never Smoker - Smokeless tobacco: Never Used - Alcohol use No Prescriptions Prior to Admission: valACYclovir (VALTREX) 500 mg tablet Take 1 tablet by mouth twice daily. Disp: 60 tablet Rfl: 2 10/23/2017 at 0900 VIT37/IRON/FOLIC ACID (PRENATA ORAL) Take 1 tablet by mouth once daily. Disp: Rfl: 10/23/2017 at 0900 Inpatient medications reviewed in [facility]. I have interviewed and examined the patient. I have reviewed the medical record , pertinent consults and/or the pre-anesthesia evaluation, pertinent labs, and test results. Significant changes in the patient's condition since the History and Physical, not otherwise documented in primary service progress notes: No This contains updated information obtained within 48 hours of Surgery/Procedure. SIGNATURE: MATILDA Mary PATIENT NAME: Juanita Roberts DATE: October 23, 2017 TIME: 9:51 PM : 1995 CBC Collected: 10/23/2017 Status: F Source: [place] 7:[address] [facility] REPOSITORY TYPE CODE TESTS RESULT OUT OF REFERENCE UNITS RANGE LAB WBC 3.70-11.00 k/uL WBC 8.75 LAB RBC 3.90-5.20 m/uL RBC 4.35 LAB HGB 11.5-15.5 g/dL Hemoglobin 13.4 LAB HCT 36.0-46.0 % Hematocrit 39.1 LAB MCV 80.0-100.0 fL MCV 89.9 LAB MCH 26.0-34.0 pG MCH 30.8 LAB MCHC 30.5-36.0 g/dL MCHC 34.3 LAB RDWCV 11.5-15.0 % RDW-CV 13.0 LAB PLTCT 150-400 k/uL Platelet Count 234 LAB MPV 9.0-12.7 fL MPV 9.8 Performed By: #### CBC #### [place] [id number] PRE DELIVERY T+S Collected: 10/23/2017 Status: F Source: [place] 7:[address] [facility] REPOSITORY TYPE CODE TESTS RESULT OUT OF REFERENCE UNITS RANGE LAB %ABR A ABO/RH(D) POSITIVE LAB % Antibody NEG Screen Performed By: #### PREDEL #### [place] [id number] HISTORY PHYSICAL Observed: 10/23/2017 Status: COMPLETED Source: [place] 6:[address] [facility] REPOSITORY HNO ID: [id number] Author: Mikayla Watson APRN.CNM Service: Obstetrics Author Type: Boat Canvas Maker And Installer Type: HANDP Filed: 10/24/2017 4:13 AM Note Text: OBSTETRICS HISTORY AND PHYSICAL SERVICE DATE: October 23, 2017 SERVICE TIME: 6:36 PM Subjective Patient's stated reason for arrival: MY BLOOD PRESSURE IS HIGH CHIEF COMPLAINT: headache and elevated BP at home HISTORY OF THE PRESENT ILLNESS: The patient is a 22 year old female, , who is at 37w1d with an ANATOLIY of 11/12/2017, by Ultrasound dating method. Patient is here complaining of intermittent headache, increased swelling over the past 1.5 week and high BP at home. Patient states, I just don't feel right. Good movement. Denies vaginal bleeding., Denies contractions., Denies leaking of fluid. Patient denies HSV lesions and is taking prophylaxis as ordered. POST DELIVERY CONTRACEPTION: Discussed post-delivery contraception options. Patient received written information about post-delivery contraception options. Patient does not desire post-delivery contraception. HISTORY REVIEW PAST MEDICAL HISTORY Diagnosis Date - Asthma sports induced - Gestational hypertension 10/23/2017 - Herpes simplex virus (HSV) infection - Mental disorder - Migraine with aura, without mention of intractable migraine without mention of status migrainosus MIGRAINE CLASSICAL - PMH - PAST MEDICAL HISTORY OF 02/21/09 normal color vision - PMH - PAST MEDICAL HISTORY OF left arm fracture x 3 - PMH - PAST MEDICAL HISTORY OF left and right weak ligaments in shoulder - Trauma broken wrist and foot PAST SURGICAL HISTORY Procedure Laterality Date - PAST SURGICAL HISTORY OF left arm reset - REMOVAL ADENOIDS,PRIMARY,<12 Y/O Adenoidectomy - REMOVAL OF TONSILS,<12 Y/O Tonsillectomy FAMILY HISTORY Problem Relation Age of Onset - Thyroid Mother - Bi-Polar [OTHER] Mother - None Father - Thyroid Sister - Stroke Paternal Grandmother - Heart Paternal Grandmother - Heart Paternal Grandfather - Bipolar [OTHER] Paternal Grandfather - Hypertension Maternal Grandfather - Heart Maternal Grandfather - Stroke Maternal Grandmother - hypotension [OTHER] Maternal Grandmother - Breast Cancer Paternal Aunt Great Aunt - Breast Cancer Maternal Aunt Great Aunt Social History Marital status: Spouse name: Galdino Years of education: Number of children: 0 Occupational History Occupation Employer Comment [employer] Social History Main Topics Smoking status: Never Smoker Smokeless status: Never Used Alcohol use: No Drug use: No Sexual activity: Yes Partners with: Male Obstetric History T0 L0 SAB0 TAB0 Ectopic0 Multiple0 Live Births0 Name of Baby 1: Not recorded Date: Not recorded GA: Not recorded Delivery: MISSED AB Apgar1: Not recorded Apgar5: Not recorded Living: Not recorded Name of Baby 2: Not recorded Date: Not recorded GA: Not recorded Delivery: Not recorded Apgar1: Not recorded Apgar5: Not recorded Living: Not recorded Active Non-Hospital Problems Diagnosis Date Noted - Herpes simplex virus (HSV) infection Overview Note: Start suppression at 36 weeks No recent outbreaks - 10/14/2016 ALLERGIES Allergen Reactions - Amoxicillin Rash Prior to Admission Medications Prescriptions Last Dose Informant Patient Reported? Taking? VIT37/IRON/FOLIC ACID (PRENATA ORAL) 10/23/2017 at 0900 Yes Yes Sig: Take 1 tablet by mouth once daily. valACYclovir (VALTREX) 500 mg tablet 10/23/2017 at 0900 No Yes Sig: Take 1 tablet by mouth twice daily. Facility-Administered Medications: None REVIEW OF SYSTEMS: RESPIRATORY: Negative for cough, hemoptysis, wheezing, COPD, dyspnea or shortness of breath CARDIOVASCULAR: Negative for chest pain, leg swelling, CHF or palpitations GI: No nausea, vomiting, or diarrhea : No history of dysuria, frequency or 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 TICKET SALES AGENT: Negative for abnormal vaginal bleeding, abnormal vaginal discharge SKIN: Negative for lesions, rash, and itching. ENDOCRINE: Negative for cold or heat intolerance, polyuria or polydipsia. The remainder of the review of systems is negative. NO HSV lesions visualized with exam. Objective LAST VITALS: Pulse BP Resp O2 Sat Temp Pain 101 141/88 16 4/10 HT/WT/BMI: Height Weight BMI 162.6 cm (5' 4) 83 kg (183 lb) 31.41 PHYSICAL EXAM: General: WD, WN HEENT: NC/AT, sclera white, pupils equal Lungs: Normal effort Heart: RR Abdomen: soft, nontender, no masses Uterus: soft, NT Extremities: tr edema FHT: 145 bpm (10/23/170 : Tatianna Cope RN) bpm St Spec Exam: (not done) CERVICAL EXAM: Dilation: Closed (10/23/170 : Tatianna Cope RN) cm Station: High (10/23/171729 : Tatianna Cope RN) Effacement: 0 (10/23/171729 : Tatianna Cope RN) % Position: Presentation: LESVIA Pelvimetry: Pelvimetry clinically assessed as adequate MONITORING/ASSESSMENT: Baseline: 145 bpm (10/23/170 : Tatianna Cope RN) Variability: Moderate (6-25 bpm) (10/23/171709 : Tatianna Cope RN) Accelerations: Present (10/23/171709 : Tatianna Cope RN) Decelerations: Decelerations: None (10/23/171709 : Tatianna Cope RN) Contractions: Not present (10/23/171709 : Tatianna Cope RN) Frequency: NST Interpretation: reactive FHR Category: 1 (10/23/171709 : Tatianna Cope RN) NST Comments: EFW: 6lbs 10oz based on clinical assessment. LABS Diagnostic tests reviewed for today's visit: Most recent labs and imaging results. Assessment/Plan 22 year old EGA:37w1d. Gestational hypertension, criteria met through elevated BP in office yesterday and today in triage - labs WNL. No s/s preeclampsia at this time. Admit to [facility]. Continuous monitoring. Routine admission labs. Induce labor with Misoprostol. RBA of this and other agents reviewed at length. Epidural PRN, although patient planning for unmedicated . 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 Procedure, risks, benefits, alternatives, and personnel discussed with patient who agrees to proceed. Plan discussed with Dr. Goyal who agrees with this management SIGNATURE: Mikayla Watson APRN.CNM PATIENT NAME: Juanita Roberts DATE: October 23, 2017 TIME: 6:36 PM PROCEDURE Observed: 10/23/2017 Status: COMPLETED Source: [place] 5:30 PM CLIN[facility] OTHER [facility]AMPUS REPOSITORY HNO ID: [id number] Author: Tatianna Dodd) RAMIRO Cope Service: Nursing Author Type: Registered Nurse Type: Procedures Filed: 10/23/2017 5:31 PM Note Text: OBSTETRICS NST SUMMARY SERVICE DATE: October 23, 2017 The patient is a 22 year old female, , who is at 37w1d with an ANATOLIY of 11/12/2017, by Ultrasound dating method. NST OBJECTIVE FINDINGS PER NURSE: Start Time: 1614 (10/23/171709 : Tatianna Cope RN) Complete Time: Indications: Gestational HTN (10/23/171709 : Tatianna Cope RN) Patient Reason For: my BP is high (10/23/171709 : Tatianna Cope RN) NST Explanation: Procedure Explained;Monitor Explained;Verbalizes Understanding (10/23/171709 : Tatianna Cope RN) Acoustic Stimulator: Interventions: MONITORING/ASSESSMENT: Baseline: 145 bpm (10/23/171709 : Tatianna Cope RN) Variability: Moderate (6-25 bpm) (10/23/171709 : Tatianna Cope RN) Accelerations: Present (10/23/171709 : Tatianna Cope RN) Decelerations: Decelerations: None (10/23/171709 : Tatianna Cope RN) Contractions: Not present (10/23/171709 : Tatianna Cope RN) Frequency: Above information forwarded to for final review and interpretation. SIGNATURE: Tatianna Cope RN PATIENT NAME: Juanita Roberts DATE: October 23, 2017 TIME: 5:30 PM CBC Collected: 10/23/2017 Status: F Source: [place] 5:00 PM [facility] OTHER [facility]AMPUS REPOSITORY TYPE CODE TESTS RESULT OUT OF REFERENCE UNITS RANGE LAB WBC 3.70-11.00 k/uL WBC 8.15 LAB RBC 3.90-5.20 m/uL RBC 4.05 LAB HGB 11.5-15.5 g/dL Hemoglobin 12.6 LAB HCT 36.0-46.0 % Hematocrit 36.1 LAB MCV 80.0-100.0 fL MCV 89.1 LAB MCH 26.0-34.0 pG MCH 31.1 LAB MCHC 30.5-36.0 g/dL MCHC 34.9 LAB RDWCV 11.5-15.0 % RDW-CV 13.0 LAB PLTCT 150-400 k/uL Platelet Count 212 LAB MPV 9.0-12.7 fL MPV 9.6 Performed By: #### CBC, CMP, URIC #### [place] [address] COMP METABOLIC PANEL Collected: 10/23/2017 Status: F Source: [place] 5:00 PM [facility] OTHER [facility]US REPOSITORY TYPE CODE TESTS RESULT OUT OF REFERENCE UNITS RANGE LAB TP 6.0-8.4 g/dL Protein, Total 6.2 LAB ALB 3.5-5.0 g/dL Albumin Low 3.4 LAB CA 8.5-10.5 mg/dL Calcium, Total 8.9 LAB TBIL 0.0-1.5 mg/dL Bilirubin, Total 0.2 LAB ALKP 40-150 U/L Alkaline High Phosphatase 183 LAB AST 7-40 U/L AST 15 LAB GLU 65-100 mg/dL Glucose High 117 LAB BUN 8-25 mg/dL BUN Low 7 LAB CRET 0.70-1.40 mg/dL Creatinine Low 0.59 LAB NA 132-148 mmol/L Sodium 138 LAB K 3.5-5.0 mmol/L Potassium 3.6 LAB CL 98-110 mmol/L Chloride 104 LAB CO2 23-32 mmol/L CO2 Low 19 LAB AGAP 9-18 mmol/L Anion Gap 15 LAB ALT 0-45 U/L ALT 10 LAB GFRAA >60 eGFR- >60 Amer. LAB GFRNAA >60 . eGFR-All Other Races >60 Performed By: #### CBC, CMP, URIC #### [place] [phone] URIC ACID Collected: 10/23/2017 Status: F Source: [place] 5:[address] [facility] REPOSITORY TYPE CODE TESTS RESULT OUT OF RANGE REFERENCE UNITS LAB URIC 2.0-7.0 mg/dL Uric Acid 5.1 Performed By: #### CBC, CMP, URIC #### [place] [phone] PROTEIN/CREATININE RATIO Collected: Status: F Source: [place] 10/23/2017 4:30 PM [facility] REPOSITORY TYPE CODE TESTS RESULT OUT OF REFERENCE UNITS RANGE LAB UTPR 0-20 mg/dL <4 Protein Urine Random LAB UCRR 20-300 mg/dL 27.7 Creatinine,Ur ine,Ran LAB PCRAT <0.2 Unable to Protein/Creat calculate because inine Ratio one or more components used in calculation is outside assay range. Performed By: #### PRAGADIEL #### [facility] [address] [place] [address] PROGRESS Observed: 10/22/2017 Status: COMPLETED Source: [place] 4:34 PM [facility] REPOSITORY HNO ID: [id number] Author: Turner Kumar Service: (none) Author Type: Physician Type: Progress Notes Filed: 10/27/2017 12:51 PM Note Text: Patient here for a Bp check d/t headache, swelling of face/feet. TruBP used and BP average is 124/87. Patient did have one reading of 126/93. Patient presented for unscheduled BP check. She gets care in [place]. Patient advised to go to either [facility] or [place] for further evaluation for possible preeclampsia. Turner Kumar MD CNNURSE Observed: 10/22/2017 Status: COMPLETED Source: [place] 4:10 PM [facility] REPOSITORY Nurse Visit (WOOB) JUANITA ROBERTS ([id number]) 1995 [facility] Date Time Provider Department 10/22/17 4:10 PM NURSE UNPAID INTERN [facility] During your visit today, we recorded the following information about you: Blood pressure 124/87 Turner Kumar MD 10/27/2017 12:51 PM Signed Patient here for a Bp check d/t headache, swelling of face/feet. TruBP used and BP average is 124/87. Patient did have one reading of 126/93. Patient presented for unscheduled BP check. She gets care in [place]. Patient advised to go to either [facility] or [place] for further evaluation for possible preeclampsia. MD Sabrina Sanchez LPN 10/22/2017 4:58 PM Signed Patient's BPs reviewed with Dr. Kumar and patient was instructed to contact Yun Velasquez's office. Referring Provider: SELF [[id number]] Allergies As of Date: 10/22/2017 Noted Allergy Reaction AMOXICILLIN 04/03/2005 2 - Rash Date Reviewed: 10/18/2017 Reviewed by: Kandi (Rn) RAMIRO Rojas - Fully Assessed Reason for Visit: BP Check [142] Primary Visit Diagnosis:BP check [Z01.30] Other Visit Diagnosis:37 weeks gestation of [Z3A.37] Prescriptions as of 10/22/2017 Sig: X VALACYCLOVIR 500 MG TABLET Take 1 tablet by mouth twice * PRENATA ORAL Take 1 tablet by mouth once d* More... Problem List As Of Date 10/22/2017 Noted Resolved Closed Fracture of Metatarsal Bone(s) [S92.309A]INVALID FOR*08/19/2009 Migraine headache [G43.909] INVALID FOR*08/31/2017 PMDD (premenstrual dysphoric disorder) [F32.81] INVALID FOR*10/14/2016 Dysmenorrhea [N94.6] INVALID FOR*07/18/2017 Herpes [B00.9] INVALID FOR*08/31/2017 More... Acne [L70.9] INVALID FOR*08/31/2017 [Z34.03] INVALID FOR* Missed [O02.1] INVALID FOR*11/13/2016 Migraine with aura [G43.109] 08/31/2017 More... Herpes simplex virus (HSV) infection [B00.9] More... Asthma [J45.909] 08/31/2017 More... Supervision of high risk in first tri*INVALID FOR*08/31/2017 History of miscarriage [Z87.59] INVALID FOR*08/31/2017 More... Low lying placenta nos or without hemorrhage, s*INVALID FOR*08/31/2017 More... Visit Notes: >> Sabrina Hines LPN WedOct 22, 2017 4:57 PM Status: Signed Patient's BPs reviewed with Dr. Kumar and patient was instructed to contact Yun Velasquez's office. Follow-up and Disposition History Recorded Encounter Status:Closed by SABRINA HINES LPN on 10/27/17 PROGRESS Observed: 10/19/2017 Status: COMPLETED Source: [place] 9:32 AM [facility] REPOSITORY HNO ID: [id number] Author: Tessaxuan Velasquez APRN.CNM Service: (none) Author Type: Boat Canvas Maker And Installer Type: Progress Notes Filed: 10/19/2017 9:32 AM Note Text: S: Juanita Roberts presents for a routine OB visit at 35w4d. She denies LOF, VB, DFM or cramping/contractions. O: See flow sheet A/P: 35w4d IUP. Pt will be better about appts.. RTO 1 Weeks for follow up. Call with LOF, VB, DFM or cramping/contractions. 1. Encounter for supervision of normal first in third trimester - URINE OB DIP B/O - valACYclovir (VALTREX) 500 mg tablet; Take 1 tablet by mouth twice daily. Dispense: 60 tablet; Refill: 2 - STREPTOCOCCUS B PCR Tessa Velasquez APRN.CNM PROGRESS Observed: 10/19/2017 Status: COMPLETED Source: [place] 12:42 AM [facility]IN[facility] OTHER CAMPUS REPOSITORY HNO ID: [id number] Author: Sonja Lord) KENIA Vee Service: Obstetrics Author Type: Boat Canvas Maker And Installer Type: Progress Notes Filed: 10/19/2017 12:48 AM Note Text: OBSTETRICS TRIAGE PROGRESS NOTE SERVICE DATE: October 19, 2017 SERVICE TIME: 12:42 AM Subjective Patient's stated reason for arrival: elevated BP 130/89, chest heaviness, foggy headed CHIEF COMPLAINT: Pt worked today and noted feeling dizzy at home. Went to a store to take her BP and found it to be 130s/80s. Noted swelling in her ankles and lower legs. HISTORY OF THE PRESENT ILLNESS: The patient is a 22 year old female, , who is at 36w4d with an ANATOLIY of 11/12/2017, by Ultrasound dating method. Patient is here complaining of feeling dizzy and having leg swelling. . Good movement. Denies vaginal bleeding., Denies contractions., Denies leaking of fluid. . REVIEW OF SYSTEMS: PAIN ASSESSMENT: Negative for pain, history of chronic pain, or current treatment for a chronic pain condition. GENERAL: No weight loss, malaise or fevers. HEENT: Negative for frequent or significant headaches, No changes in hearing or vision, no nose bleeds or other nasal problems NECK: Negative for goiter, pain or significant neck swelling RESPIRATORY: Negative for cough, hemoptysis, wheezing, COPD, dyspnea or shortness of breath CARDIOVASCULAR: Negative for chest pain, leg swelling, hypertension, CHF or palpitations The remainder of the review of systems is negative. Objective LAST VITALS: Pulse BP Resp O2 Sat Temp Pain 76 137/85 16 98 % 36.8 ?C (98.3 ?F) 0/10 HT/WT/BMI: Height Weight BMI 162.6 cm (5' 4) 83 kg (183 lb) 31.41 PHYSICAL EXAM: General: WD, WN Heart: RR, S1, S2 Lungs: clear to auscultation Abdomen: soft, nontender, no masses Uterus: soft, NT Extremities: 1+ edema/ DTrs 2+ CERVICAL EXAM: Dilation: cm Station: Effacement: % Presentation: MONITORING/ASSESSMENT: NST SUMMARY PROVIDER ASSESSMENT AND INTERPRETATION Juanita Roberts is a 22 year old female, , who is at 36w4d with an ANATOLIY of 11/12/2017, by Ultrasound dating method. Indications for NST: Other: High Blood Pressure/Swelling Baseline: 130 Variability: Moderate Accelerations: Present 15 X 15 Decelerations: None Contractions: TOCO: None Interpretation: Category I SIGNATURE: Sonja Vee APRN.CNM LABS Diagnostic tests reviewed for today's visit: Most recent labs/ Pending Assessment/Plan 22 year old EGA:36w4d. Increased swelling and increased BP after work today. Fetus Category I If labs WNL, Pt to be discharged home with reduced work week (3 days/ week) Rest home from work tomorrow Reviewed GHTN , S/Sx, and Criteria/ Pt verbalized understanding Office visit this week for BP recheck and visit. Return with headaches, floaters, increased swelling, or any pain / s/sx of labor. Normotensive here at hospital. Active Problems: * No active hospital problems. * Resolved Problems: * No resolved hospital problems. * SIGNATURE: Sonja Vee APRN.CNM PATIENT NAME: Juanita Roberts DATE: October 19, 2017 TIME: 12:42 AM PROCEDURE Observed: 10/19/2017 Status: COMPLETED Source: [place] 12:09 AM CLINIC OTHER CAMPUS REPOSITORY HNO ID: [id number] Author: Kandi (Rn) RAMIRO Rojas Service: Obstetrics Author Type: Registered Nurse Type: Procedures Filed: 10/19/2017 12:09 AM Note Text: Attestation signed by Sonja Vee APRN.CNM at 10/20/2017 9:33 AM NST SUMMARY PROVIDER ASSESSMENT AND INTERPRETATION Juanita Roberts is a 22 year old female, , who is at 36w5d with an ANATOLIY of 11/12/2017, by Ultrasound dating method. Indications for NST: Other: dizziness, swelling Baseline: 135 Variability: Moderate Accelerations: Present 15 X 15 Decelerations: None Contractions: TOCO: None Interpretation: Category I SIGNATURE: Sonja Vee APRN.CNM OBSTETRICS NST SUMMARY SERVICE DATE: October 19, 2017 The patient is a 22 year old female, , who is at 36w4d with an ANATOLIY of 11/12/2017, by Ultrasound dating method. NST OBJECTIVE FINDINGS PER NURSE: Start Time: 2314 (10/18/172344 : Kandi Rojas, RN) Complete Time: 2344 (10/18/172344 : Kandi Rojas, RN) Indications: Gestational HTN (10/18/172344 : Kandi Dodd) Crystal, RN) Patient Reason For: NST Explanation: Procedure Explained;Monitor Explained;Verbalizes Understanding (10/18/172344 : Kandi Rojas, RN) Acoustic Stimulator: No (10/18/172344 : Kandi Rojas, RN) Interventions: MONITORING/ASSESSMENT: Baseline: 125 bpm (10/18/172344 : Kandi Rojas RN) Variability: Moderate (6-25 bpm) (10/18/172344 : Kandi Rojas RN) Accelerations: Present (10/18/172344 : Kandi Rojas RN) Decelerations: Decelerations: None (10/18/172344 : Kandi Rojas RN) Contractions: Irregular (10/18/172344 : Kandi Rojas RN) Frequency: 2-10 (10/18/172344 : Kandi Rojas RN) Above information forwarded to Evan Vee CNM (10/18/172344 : Kandi Rojas RN) for final review and interpretation. SIGNATURE: Kandi Rojas RN PATIENT NAME: Juanita Roberts DATE: October 19, 2017 TIME: 12:09 AM CNCO Observed: 10/19/2017 Status: COMPLETED Source: [place] 12:00 AM [facility] REPOSITORY Letter Text [facility] Sonja Vee APRN.CNM [address] [id number] October 19, 2017 To whom it may concern, Juanita Roberts was seen at [facility] last night and early this morning due to related illness. She is to reduce her work hours to no more than 3 days per week until the end of . Please excuse her absence from work today as she was just discharged from the hospital. Thank you very much. Sincerely, Sonja Vee APRN.CNM Letter Text [facility] Sonja Vee APRN.CNM [address] [place] [address] October 19, 2017 To whom it may concern, Juanita Roberts was seen at [facility] today. She is having illness related to and should be off work until delivery. Please excuse her absence from work starting on 10/19/2017. Sincerely, Sonja Vee APRN.CNM Letter Text [facility] Sonja Vee APRN.CNM [address] [phone] October 19, 2017 To whom it may concern, Mr. Galdino Roberts was at [facility] today due to his 's related illness. . Please excuse his absence from work todayl. Sincerely, Sonja Vee APRN.CNM CBC Collected: 10/18/2017 Status: F Source: [place] 11:10 PM CLINIC OTHER SIMS REPOSITORY TYPE CODE TESTS RESULT OUT OF REFERENCE UNITS RANGE LAB WBC 3.70-11.00 k/uL WBC 8.77 LAB RBC 3.90-5.20 m/uL RBC 4.09 LAB HGB 11.5-15.5 g/dL Hemoglobin 12.9 LAB HCT 36.0-46.0 % Hematocrit 36.9 LAB MCV 80.0-100.0 fL MCV 90.2 LAB MCH 26.0-34.0 pG MCH 31.5 LAB MCHC 30.5-36.0 g/dL MCHC 35.0 LAB RDWCV 11.5-15.0 % RDW-CV 12.7 LAB PLTCT 150-400 k/uL Platelet Count 230 LAB MPV 9.0-12.7 fL MPV 9.6 Performed By: #### CBC, URIC #### [place] [phone] URIC ACID Collected: 10/18/2017 Status: F Source: [place] 11:10 PM CLIN[facility] OTHER SIMS REPOSITORY TYPE CODE TESTS RESULT OUT OF RANGE REFERENCE UNITS LAB URIC 2.0-7.0 mg/dL Uric Acid 4.8 Performed By: #### CBC, URIC #### [place] [address] PRE DELIVERY T+S Collected: 10/18/2017 Status: F Source: [place] 11:10 PM [facility] OTHER [facility]S REPOSITORY TYPE CODE TESTS RESULT OUT OF REFERENCE UNITS RANGE LAB %ABR A ABO/RH(D) POSITIVE LAB % Antibody NEG Screen Performed By: #### PREDEL #### [place] [address] COMP METABOLIC PANEL Collected: 10/18/2017 Status: F Source: [place] 11:10 PM [facility] OTHER [facility]AMP[facility] REPOSITORY TYPE CODE TESTS RESULT OUT OF REFERENCE UNITS RANGE LAB TP 6.0-8.4 g/dL Protein, Total 6.1 LAB ALB 3.5-5.0 g/dL Albumin 3.6 LAB CA 8.5-10.5 mg/dL Calcium, Total 9.0 LAB TBIL 0.0-1.5 mg/dL Bilirubin, Total 0.2 LAB ALKP 40-150 U/L Alkaline High Phosphatase 184 LAB AST 7-40 U/L AST 17 LAB GLU 65-100 mg/dL Glucose 79 LAB BUN 8-25 mg/dL BUN 11 LAB CRET 0.70-1.40 mg/dL Creatinine Low 0.55 LAB NA 132-148 mmol/L Sodium 139 LAB K 3.5-5.0 mmol/L Potassium 4.1 LAB CL 98-110 mmol/L Chloride 105 LAB CO2 23-32 mmol/L CO2 Low 18 LAB AGAP 9-18 mmol/L Anion Gap 16 LAB ALT 0-45 U/L ALT 12 LAB GFRAA >60 eGFR- >60 Amer. LAB GFRNAA >60 . eGFR-All Other Races >60 Performed By: #### CMP #### [place] [address] PROTEIN/CREATININE RATIO Collected: Status: F Source: [place] 10/18/2017 11:[address] [facility] REPOSITORY TYPE CODE TESTS RESULT OUT OF REFERENCE UNITS RANGE LAB UTPR 0-20 mg/dL <4 Protein Urine Random LAB UCRR 20-300 mg/dL 13.7 Low Creatinine,Ur ine,Ran LAB PCRAT <0.2 Unable to Protein/Creat calculate because inine Ratio one or more components used in calculation is outside assay range. Performed By: #### PRATIO #### [place] [phone] GROUP B STREP PCR Collected: 10/12/2017 Status: F Source: [place] 4:15 PM [facility] REPOSITORY TYPE CODE TESTS RESULT OUT OF REFERENCE UNITS RANGE LAB GBPCRT Negative for GROUP Group B B STREP PCR Streptococcus by PCR. Performed By: #### GBPCR #### [facility] [address] [id number] CBC Collected: 10/09/2017 Status: F Source: [place] 10:01 AM [facility] REPOSITORY TYPE CODE TESTS RESULT OUT OF REFERENCE UNITS RANGE LAB WBC 3.70-11.00 k/uL WBC 7.75 LAB RBC 3.90-5.20 m/uL RBC 4.10 LAB HGB 11.5-15.5 g/dL Hemoglobin 12.9 LAB HCT 36.0-46.0 % Hematocrit 39.5 LAB MCV 80.0-100.0 fL MCV 96.3 LAB MCH 26.0-34.0 pG MCH 31.5 LAB MCHC 30.5-36.0 g/dL MCHC 32.7 LAB RDWCV 11.5-15.0 % RDW-CV 12.4 LAB PLTCT 150-400 k/uL Platelet Count 230 LAB MPV 9.0-12.7 fL MPV 9.7 LAB ABSNUC <0.01 k/uL Absolute nRBC <0.01 Performed By: #### CBC #### [facility] [address] [address] 50G, 1HR GEST. Collected: 10/09/2017 Status: F Source: [facility] 10:00 [facility] REPOSITORY TYPE CODE TESTS RESULT OUT OF REFERENCE UNITS RANGE LAB GLUP 74-134 mg/dL Glucose 95 Screen, Preg Result Comment: [place] [employer] (Mathur/Coustan) guidelines state a gestational diabetes mellitus positive screen is made, in women not previously diagnosed with overt diabetes, when the 1 hr plasma glucose level is equal to or above 140 mg/dL. [facility] [place] recommends a 135 mg/dL cutoff. Performed By: #### GLTGST #### [facility] [address] [phone] CNCO Observed: 09/01/2017 Status: COMPLETED Source: [place] 12:00 AM [facility] REPOSITORY Letter Text Juanita Roberts [facility] Tessa Velasquez CNM [address] [address] Juanita Roberts [address] [place] [address] September 01, 2017 Dear Juanita Roberts: Due to a change in your physician's schedule, it has become necessary to cancel the following appointment: Tessa Velasquez CNM Date: September 21, 2017 We were unable to reach you by telephone and would appreciate it if you would call us back. We apologize for any inconvenience to you however your physician would still like to see you. Please call us at [phone] to reschedule your appointment. When calling back, please inform the coordinate measuring machine operator that you received a letter regarding an appointment that needed to be rescheduled. Thank you. Sincerely, Appointment Staff PROGRESS Observed: 08/31/2017 Status: COMPLETED Source: [place] 5:04 PM [facility] REPOSITORY HNO ID: [id number] Author: Tessa Velasquez Service: (none) Author Type: Boat Canvas Maker And Installer Type: Progress Notes Filed: 08/31/2017 5:09 PM Note Text: S: Juanita Roberts presents for a routine OB visit at 29w4d. She denies LOF, VB, DFM or cramping/contractions. She does note that she had about 12 hours of menstrual like cramps on Wednesday. She states that she talked to her auto technician about it. She was encouraged to call with concerns about cramping. Follow up u/s showed resolution of low lying placenta O: See flow sheet A/P: 29w4d IUP. Cramping in early . RTO 2 Weeks for follow up. Call with LOF, VB, DFM or cramping/contractions. 1. Encounter for supervision of normal first in third trimester - URINE OB DIP B/O - GEST GLUC SCREEN, 1-HR, 50 GM, NON-FASTING; Future - CBC; Future 2. Cramping affecting , antepartum Juanita will call with further episodes of cramping. - URINE CULTURE Tessa Velasquez CNM Observed: 08/31/2017 Status: F Source: [place] URINE CULTURE 12:15 PM [facility] REPOSITORY Sp. Request/Comment: - Specimen received in preservative Culture Result - 10,000 - <50,000 CFU/ml Normal urogenital alley Performed By: #### URCUL #### [facility] [address] [place], [place] [address] HOSP Observed: 08/31/2017 Status: COMPLETED Source: [place] 10:45 AM [facility] REPOSITORY Routine Office Visit (OBGYBR) JUANITA ROBERTS ([id number]) 1995 [facility] Date Time Provider Department 08/31/17 10:45 AM TESSA VELASQUEZ ([employer]) OBGYBR During your visit today, we recorded the following information about you: Blood pressure Weight Height 100/60 75.8 kg 1.626 m Nolvia Gaines [facility] 08/31/2017 11:28 AM Signed . Movement? Active baby Vaginal Bleeding: NO Vaginal fluid leakage of fluid: NO Contractions: [place] type Tessa Velasquez CNM 08/31/2017 5:09 PM Signed S: Juanita R Carlota presents for a routine OB visit at 29w4d. She denies LOF, VB, DFM or cramping/contractions. She does note that she had about 12 hours of ANDquot;menstrual like crampsANDquot; on Wednesday. She states that she talked ANDquot;to her auto technician about it.ANDquot; She was encouraged to call with concerns about cramping. Follow up u/s showed resolution of low lying placenta O: See flow sheet A/P: 29w4d IUP. Cramping in early . RTO 2 Weeks for follow up. Call with LOF, VB, DFM or cramping/contractions. 1. Encounter for supervision of normal first in third trimester - URINE OB DIP B/O - GEST GLUC SCREEN, 1-HR, 50 GM, NON-FASTING; Future - CBC; Future 2. Cramping affecting , antepartum Juanita will call with further episodes of cramping. - URINE CULTURE Tessa Velasquez, CNM Referring Provider: TESSA VELASQUEZ ([employer]) [[id number]] Allergies As of Date: 08/31/2017 Noted Allergy Reaction AMOXICILLIN 04/03/2005 2 - Rash Date Reviewed: 08/31/2017 Reviewed by: Nolvia Campo - Fully Assessed Reason for Visit: Care [86] Primary Visit Diagnosis:Encounter for supervision of normal first in third trimester [Z34.03] Other Visit Diagnosis:Cramping affecting , antepartum [O26.899, R10.9] Order(s):URINE OB DIP B/O [3657703] Order #: [id number] GEST GLUC SCREEN, 1-HR, 50 GM, NON-FASTING [SQGLTGST] Order #: [id number] FUTURE CBC [SQCBC] Order #: [id number] FUTURE URINE CULTURE [SQURCUL] Order #: [id number] Prescriptions as of 08/31/2017 Sig: PRENATA ORAL Take 1 tablet by mouth once d* More... Problem List As Of Date 08/31/2017 Noted Resolved Closed Fracture of Metatarsal Bone(s) [S92.309A]INVALID FOR*08/19/2009 Migraine headache [G43.909] INVALID FOR*08/31/2017 PMDD (premenstrual dysphoric disorder) [F32.81] INVALID FOR*10/14/2016 Dysmenorrhea [N94.6] INVALID FOR*07/18/2017 Herpes [B00.9] INVALID FOR*08/31/2017 More... Acne [L70.9] INVALID FOR*08/31/2017 [Z34.03] INVALID FOR* Missed [O02.1] INVALID FOR*11/13/2016 Migraine with aura [G43.109] 08/31/2017 More... Herpes simplex virus (HSV) infection [B00.9] More... Asthma [J45.909] 08/31/2017 More... Supervision of high risk in first tri*INVALID FOR*08/31/2017 History of miscarriage [Z87.59] INVALID FOR*08/31/2017 More... Low lying placenta nos or without hemorrhage, s*INVALID FOR*08/31/2017 More... Visit Notes: >> Nolvia Cox Aug 31, 2017 11:17 AM Status: Signed . Movement? Active baby Vaginal Bleeding: NO Vaginal fluid leakage of fluid: NO Contractions: [place] type Disposition: Return in about 2 weeks (around 09/14/2017), or if symptoms worsen or fail to improve, for OB visit. Follow-up and Disposition History Recorded Encounter Status:Closed by TESSA VELASQUEZ CNM on 08/31/17 PROGRESS Observed: 08/09/2017 Status: COMPLETED Source: [place] 10:51 AM [facility] ID: [id number] Author: Bianca Kowalski Service: (none) Author Type: Physician Type: Progress Notes Filed: 08/09/2017 10:51 AM Note Text: A al intrauterine The size is AGA Estimated Date of Delivery: 11/12/17 EGA = 26w3d The anatomy appears normal in the areas visualized. The amniotic fluid volume is normal. There is no evidence of effusions and/ or hydrops. The placenta is fundal. The limitations of ultrasound have been addressed with the patient. Body mass index is 28.49 kg/(m2). RECOMMENDATIONS: - Self-assessment of kick counts - Follow up ultrasound as clinically indicated HOSP Observed: 08/09/2017 Status: COMPLETED Source: [place] 9:40 AM [facility] Routine Office Visit (OBGMED) JUANITA ROBERTS ([id number]) 1995 [facility] Date Time Provider Department 08/09/17 9:40 AM BIANCA KOWALSKI OBGMED During your visit today, we recorded the following information about you: Weight Height 75.3 kg 1.626 m Bianca Kowalski MD 08/09/2017 10:51 AM Signed A al intrauterine The size is AGA Estimated Date of Delivery: 11/12/17 EGA = 26w3d The anatomy appears normal in the areas visualized. The amniotic fluid volume is normal. There is no evidence of effusions and/ or hydrops. The placenta is fundal. The limitations of ultrasound have been addressed with the patient. Body mass index is 28.49 kg/(m2). RECOMMENDATIONS: - Self-assessment of kick counts - Follow up ultrasound as clinically indicated Referring Provider: SELF [200] Allergies As of Date: 08/09/2017 Noted Allergy Reaction AMOXICILLIN 04/03/2005 2 - Rash Date Reviewed: 08/09/2017 Reviewed by: Bianca Kowalski - Fully Assessed Primary Visit Diagnosis:26 weeks gestation of [Z3A.26] Other Visit Diagnosis:Suspected placental problem not found [Z03.72] Prescriptions as of 08/09/2017 Sig: PRENATA ORAL Take 1 tablet by mouth once d* More... Problem List As Of Date 08/09/2017 Noted Resolved Closed Fracture of Metatarsal Bone(s) [S92.309A]INVALID FOR*08/19/2009 Migraine Headache [G43.909] INVALID FOR* PMDD (premenstrual dysphoric disorder) [F32.81] INVALID FOR*10/14/2016 Dysmenorrhea [N94.6] INVALID FOR*07/18/2017 Herpes [B00.9] INVALID FOR* More... Acne [L70.9] INVALID FOR* Encounter for supervision of normal first pregn*INVALID FOR*11/09/2016 Missed [O02.1] INVALID FOR*11/13/2016 Migraine with aura [G43.109] More... Herpes simplex virus (HSV) infection [B00.9] More... Asthma [J45.909] More... Supervision of high risk in first tri*INVALID FOR* History of miscarriage [Z87.59] INVALID FOR* More... Low lying placenta nos or without hemorrhage, s*INVALID FOR* More... Encounter Status:Closed by BIANCA KOWALSKI MD on 08/09/17 ALLERGIES ALLERGIES DATE TYPE / CODE NAME / CODE REACTION SEVERITY SOURCE 06/29/2018 Drug amoxicillin/M22085 Rash OR [place] Allergy/416 3482(RXNORM) [facility] 717449([facility]) Repository 04/03/2005 DRUG AMOXICILLIN RASH [facility] INGREDI/419 Other [place] 438738(SNOM Repository ED CT) ENCOUNTERS ENCOUNTERS ADMIT/DISCHARGE ACCOUNT NUMBER ADMITTING ENCOUNTER LOCATION SOURCE CLASS 06/29/2018 [id number] Ambulatory [facility] ding:LABSPEC Repository 06/29/2018/06/29/20 [id number] Ambulatory BMSBuilding: [place] [facility] Repository 06/07/2018 [id number] Ambulatory [facility] ding:LABSPEC Repository 06/07/2018/06/07/20 [id number] Ambulatory BMSBuilding: [place] [facility] Repository 06/01/2018 [id number] Ambulatory [facility] ding:US Repository 05/23/2018 [id number] Ambulatory [facility] ding:LAB Repository 12/08/2017/12/11/19 [id number] Ambulatory [address] Main [place] Repository 10/24/2017/10/27/19 [id number] Inpatient [address] Other [place] Repository 10/22/2017/10/23/19 [id number] Ambulatory [address] Main [place] Repository 10/18/2017/10/20/19 [id number] Ambulatory [address] Other [place] Repository 10/12/2017/10/20/19 [id number] Ambulatory [address] Main [place] Repository 10/09/2017/12/16/19 [id number] Ambulatory [address] Main [place] Repository 09/25/2017 [id number] TESSA VELASQUEZ Ambulatory [place] [facility] Other [place] Repository 08/31/2017/09/02/19 [id number] Ambulatory [address] Main [place] Repository 08/09/2017/08/11/19 [id number] Ambulatory [address] Main [place] Repository PAYERS PAYERS ENCOUNTER GUARANTOR PAYER SUBSCRIBER SOURCE 06/29/2018 JUANITA Toribio Primary GALDINO WHITEOB: [place] [address] Insurance:[place]c [id number] Number: [facility] [address]Xyx: (688) [id number] Repository [phone] () Date:9897-77-79UO [address]WLASFOMRCEO, [place] [address]BK: 06/29/2018 Secondary NOT GIVENUNK [place] Insurance:SELF PAY [facility] Number: Effective Repository Date:2018-06-29 06/29/2018 JUANITA R Primary GALDINO R CHINNDOB: [place] [address] Insurance:CIGNAPolicy [id number], [place] Number: Hospital [id number]: (330 [id number] Repository [phone] () Date:4282-63-15PF [address]JQUKPSVGNEUPOCA, [place] [address]JL: 06/29/2018 Secondary NOT GIVENUNK [place] Insurance:SELF PAY [facility] Number: Effective Repository Date:2018-06-29 06/07/2018 JUANITA R Primary GALDINO R CHINNDOB: [place] [address] Insurance:CIGNAPolicy [id number], [place] Number: Hospital [address]Pss: (330) [id number] Repository [phone] () Date:0416-98-69MR [address]EMZNPDKDNPE, [place] [address]JC: 06/07/2018 Secondary NOT GIVENUNK [place] Insurance:SELF PAY [facility] Number: Effective Repository Date:2018-06-07 06/07/2018 JUANITA R Primary GALDINO R CHINNDOB: [place] [address] Insurance:CIGNAPolicy [id number] [facility] [place] Number: Hospital [id number]: ([phone]) [id number] Repository [phone] () Date:2087-05-23EL [address]VJXULCIVBRI, [place] [address]DG: 06/07/2018 Secondary NOT GIVENUNK [place] Insurance:SELF PAY [facility] Hospital Number: Effective Repository Date:2018-06-07 06/01/2018 JUANITA R Primary GALDINO R CHINNDOB: [place] [address] Insurance:CIGNAPolicy [id number], [place] Number: Hospital [address]Uzx: (330 [id number] Repository [phone] () Date:8171-98-29BS [address]GEPAFJAVVXP, [place] [address]GN: 06/01/2018 Secondary NOT GIVENUNK [place] Insurance:SELF PAY [facility] Number: Effective Repository Date:2018-05-25 05/23/2018 JUANITA R Primary GALDINO R CHINNDOB: [place] [address] Insurance:CIGNAPolicy [id number], [place] Number: [facility] [address]Hip: 330 [id number] Repository [phone] () Date:9727-86-53CX [address]PEUUGOWUCRL, [place] [address]CN: 05/23/2018 Secondary NOT GIVENUNK [place] Insurance:SELF PAY [facility] Hospital Number: Effective Repository Date:2018-05-23
== END ==
PROVIDERS: Referring Provider Nurse Practitioner Women's Health; Visit Provider Nurse Practitioner Women's Health
DX: R30.0 Dysuria (principal)
CPT/HCPCS: 87077; 87086; 87088; 87186

== ENCOUNTER 2018-07-30 11:50 | Outpatient (CLI) | payer OTHER, SELFPAY ==
[2018-06-29 14:46] VITALS: BMI 25.2
[2018-07-30 12:11] VITALS: BMI 26.4
[2018-07-30 12:42] LABS: Bacteria 0 SEEN /hpf (None Seen); Mucous, Urine 0 SEEN /hpf (<or=2+); Red Blood Cells-Urine 0 SEEN /hpf (0-5)
[2018-07-30 12:44] LABS: Color, Urine Straw (Yellow); Glucose, Dipstick Normal (Normal); Ketone-Dipstick Negative (Negative); Leukocyte Esterase-Dipstick Negative /ul (Negative); Nitrite-Dipstick Negative (Negative); Occult Blood-Urine Negative /ul (Negative); Protein-Dipstick Negative (Negative); Urine Bilirubin Dipstick Negative (Negative); Urine Clarity Clear (Clear); Urine Urobilinogen Normal (Normal); Urine pH 6.5 (5.0 - 8.0)
[2018-07-30 12:50] LABS: Squamous Epithelial Cells - UA 0-5 SEEN /hpf (5-10); White Blood Cells 0-5 SEEN /hpf (0-5)
--- NOTE | 2018-08-02 11:43 | OB.TRI.HP_ITS ---
History of Present Illness Date of Service: 07/30/18 Reason For Visit: RO LABOR History of Present Illness: co increased discharge and pelvic pressure Allergies amoxicillin [Amoxicillin] Allergy (Mild, Verified 07/30/18 12:10) Rash - Pertinent Past Medical History Medical History: Past Medical History (Last Reviewed 06/29/18 @ 14:48 by Mary Peralta) Mgrn w [facility] wo [facility] mgrn Surgical History: Past Surgical History (Last Reviewed 06/29/18 @ 14:48 by Mary Peralta) S/P tonsillectomy and adenoidectomy s/p left arm Laboratory Studies: Laboratory Tests 07/30/18 Range/Units 12:33 Urine Color Straw (Yellow) Urine Clarity Clear (Clear) Urine pH 6.5 (5.0 - 8.0) Ur Specific [place] 1.010 (1.002-1.030) Urine Protein Negative (Negative) mg/dl Urine Glucose (UA) Normal (Normal) mg/dl Urine Ketones Negative (Negative) mg/dl Urine Occult Blood Negative (Negative) /ul Urine Nitrite Negative (Negative) Urine Bilirubin Negative (Negative) mg/dL Urine Urobilinogen Normal (Normal) mg/dl Ur Leukocyte Esterase Negative (Negative) /ul Urine RBC 0 SEEN (0-5) /hpf Urine WBC 0-5 SEEN (0-5) /hpf Ur Squamous Epith Cells 0-5 SEEN (5-10) /hpf Urine Bacteria 0 SEEN (None Seen) /hpf Urine Mucus 0 SEEN (<or=2+) /hpf NST - FHR Rate Baby A Baseline: 150 Impression/Plan pelvic pressure no infections cervica closed thick high dc home
== END 2018-07-30 13:10 | disposition home or self-care (01) ==
LOC: WPOUT 11:57 → WP 11:58
PROVIDERS: Referring Provider Obstetrics & Gynecology; Visit Provider Obstetrics & Gynecology
DX: O26.899 Other specified pregnancy related conditions, unspecified trimester (principal); R10.2 Pelvic and perineal pain; Z3A.00 Weeks of gestation of pregnancy not specified
CPT/HCPCS: 59050; 81001; 99218; G0378

== ENCOUNTER → 2018-08-19 07:53 | Outpatient (CLI) | payer OTHER, SELFPAY ==
[2018-08-03 09:23] VITALS: BMI 26.4
--- NOTE | 2018-08-19 07:56 | US_ITS ---
STUDY: SECOND AND THIRD TRIMESTER OBSTETRICAL ULTRASOUND REASON FOR EXAM: Female, 23 years old. Routine survey. LMP: Unknown. TECHNIQUE: Transabdominal TECHNICAL QUALITY: Adequate. PRIOR ULTRASOUND: Comparison is made with prior study dated June 01, 2018. FINDINGS: There is a single intrauterine fetus. The fetus is in a cephalic presentation. There is demonstrated cardiac activity with a heart rate of 138 bpm. There is a normal amniotic fluid volume. The largest amniotic fluid pocket measures 7.1 cm x 1.9 cm. The amniotic fluid index (SUSHANT) is within normal limits. The placenta is anterior in location and is not low lying. There are Grade 0 placental changes. The cervix measures 3.9 cm in length. The bilateral adnexal regions are normal. BIOMETRY: BPD: 4.15 cm: 18 weeks, 5 days HC: 16.87 cm: 90 weeks, 4 days AC: 14.45 cm: 19 weeks, 6 days FL: 3.09 cm: 90 weeks, 5 days CI: 69% FL/BPD: 74% FL/HC: FL/AC: 21% HC/AC: 1.17 age by current US: 19 weeks, 1 days. ANATOLIY by current US: January 09, 2019. Estimated weight: 304 grams, +/- 44 grams, 26 %. ANATOMY: Gender: Female Cranium: Normal lateral ventricles. Normal choroid plexus. Normal cerebellum. Normal cisterna magna. Normal face, nose and lips. Chest: Normal 4-chamber heart. Abdomen/Pelvis: Normal diaphragm. Normal stomach. Normal abdominal wall. Normal cord insertion. Normal 3 vessel cord. Normal kidneys. Normal bladder. Spine: Normal cervical spine. Normal thoracic spine. Normal lumbar spine. Normal sacrum. Extremities: Normal bilateral upper extremities. Normal bilateral lower extremities. US/OB Anatomy Scan IMPRESSION: Single live intrauterine gestation with a mean gestational age of 19 weeks and 4 days. The measurements obtained today following the normal expected range. Electronically Signed: Geovanny Collado MD at 14:45 EST Tel [phone], Service support ,
--- OUTSIDE RECORDS SUMMARY | 2018-10-23 14:52 | XMS RPT_ITS ---
:1995 Author Organization [place] Support Name Relationship Address Phone GALDINO ROBERTS Unavailable [address] + [facility] [place] [address] ABDIRAHMAN ANTHONY Unavailable Unavailable + [place] Unavailable [address] + [place] [address] KAMINI ROBERTSI Unavailable [address] + [place] [address] ABDIRAHMAN ANTHONY Unavailable 0 + [place] [address] [place] Unavailable [address] + [place] [address] ALEJANDRA GALDINO Unavailable [address] + [place] [address] ABDIRAHMAN ANTHONY Unavailable 0 + [place] [address] [place] Unavailable [address] + [place] [address] ALEJANDRA GALDINO Unavailable [address] + [place] [address] ABDIRAHMAN ANTHONY Unavailable Unavailable + [place] Unavailable [address] + [place] [address] ALEJANDRA GALDINO Unavailable [address] + [place] [address] ABDIRAHMAN ANTHONY Unavailable Unavailable + [place] Unavailable [address] + [place] [address] ALEJANDRA GALDINO Unavailable [address] + [place] [address] ABDIRAHMAN ANTHONY Unavailable . + ., [place] . [place] Unavailable [address] + [place] [address] ALEJANDRA, GALDINO Unavailable [address] + [place] [address] ABDIRAHMANANTHONY Unavailable Unavailable + [place] Unavailable [address] + [place] [address] ALEJANDRA, GALDINO Unavailable [address] + [place] [address] ABDIRAHMAN, LEONARD Unavailable [address] + [place] [address] [place] Unavailable [address] + [place] [address] ALEJANDRA, GALDINO Unavailable [address] + [place] [address] ABDIRAHMAN, LEONARD Unavailable [address] + [place] [address] [place] Unavailable [address] + [place] [address] ALEJANDRA, GALDINO Unavailable [address] + [place] [address] ABDIRAHMAN, LEONARD Unavailable [address] + [place] [address] [place] Unavailable [address] + [place] [address] Care Team Providers Name Role Phone TESSA VELASQUEZ ([facility]) Admitting Unavailable TESSA VELASQUEZ (CN) Attending Unavailable TESSA VELASQUEZ (CNM) Attending Unavailable TESSA VELASQUEZ (CNM) Referring Unavailable TESSA VELASQUEZ (CN) Referring Unavailable TESSA VELASQUEZ (CN) Attending Unavailable TRACY BOYLE ([facility]) Attending Unavailable Vandana Villalobos Attending Unavailable Vandana Villalobos Referring Unavailable Primay Care Physicia, No Primary Care Unavailable Vandana Villalobos Attending Unavailable Vandana Villalobos Referring Unavailable Primay Care Physicia, No Primary Care Unavailable Vandana Villalobos Consulting Unavailable Vandana Villalobos Attending Unavailable Primay Care Physicia, No Referring Unavailable Marcanthony, Vandana Attending Unavailable Marcanthony, Avndana Referring Unavailable Primay Care Physicia, No Primary Care Unavailable Marcanthony, Vandana Attending Unavailable Marcanthony, Vandana Referring Unavailable Primay Care Physicia, No Primary Care Unavailable [place], Patsy Attending Unavailable [place], Patsy Referring Unavailable Primay Care Physicia, No Primary Care Unavailable Marcanthony, Vandana Attending Unavailable Primay Care Physicia, No Referring Unavailable Marcanthony, Vandana Attending Unavailable Primay Care Physicia, No Primary Care Unavailable Marcanthony, Vandana Referring Unavailable [place], Patsy Attending Unavailable Primay Care Physicia, No Referring Unavailable [place], Patsy Attending Unavailable Primay Care Physicia, No Primary Care Unavailable [place], Patsy Referring Unavailable PROBLEMS PROBLEMS DATE TYPE CONDITION / CODE ATTENDING STATUS SOURCE 08/03/2018 Unknown O23.42 - Marcanthony, Active [place] [facility] infection of Hospital urinary tract in Repository , second trimester / O23.42(ICD-10) 08/03/2018 Unknown O98.312 - Other Marcanthony, Active [place] infections with a [facility] Hospital sexual mode of Repository transmission complicating , second trimester / O98.312(ICD-10) 08/03/2018 Unknown A60.09 - Marcanthony, Active [place] Herpes[facility] infection of other Hospital urogenital tract / Repository A60.09(ICD-10) 08/03/2018 Unknown Z3A.17 - 17 weeks Marcanthony, Active [place] gestation of [facility] Hospital Z3A.17(ICD-10) Repository 08/03/2018 Unknown Z34.82 - Encounter Marcanthony, Active [place] for supervision of [facility] other normal Hospital , second Repository trimester / Z34.82(ICD-10) 06/30/2018 Unknown R30.0 - Dysuria / [place], Patsy Active [place] R30.0(ICD-10) [facility] Repository 06/08/2018 Unknown Z34.90 - Encounter Marcanthony, Active [place] for supervision of [facility] normal , Hospital unspecified, Repository unspecified trimester / Z34.90(ICD-10) 06/07/2018 Unknown Z23 - Encounter for Marcanthony, Active [place] immunization / [facility] Z23(ICD-10) Hospital Repository 06/07/2018 Unknown O98.311 - Other Marcanthsharda, Active [place] infections with a [facility] Hospital sexual mode of Repository transmission complicating , first trimester / O98.311(ICD-10) 06/07/2018 Unknown Z3A.09 - 9 weeks Griselda, Active [place] gestation of [facility] Z3A.09(ICD-10) Repository 06/07/2018 Unknown Z34.81 - Encounter Griselda, Active [place] for supervision of [facility] normal Hospital , first Repository trimester / Z34.81(ICD-10) 10/24/2017 Active Encounter for NA Active [facility] full-term Other [place] uncomplicated Repository delivery / O80(ICD-10) 10/24/2017 Active Gestational NA Active [facility] (-induced) Other [place] hypertension Repository without significant proteinuria, third trimester / O13.3(ICD-10) 08/31/2017 Active Encounter for NA Active [facility] supervision of Main [place] normal first Repository , third trimester / Z34.03(ICD-10) 09/25/2017 Active Unknown / TESSA VELASQUEZ Active [facility] UNK(Unknown) (CNM) Other [place] Repository PROCEDURES PROCEDURES No Procedure Records FoundRESULTS RESULTS OB ANATOMY SCAN Observed: 08/19/2018 Status: F Source: [place] 7:56 AM [facility] REPOSITORY [facility] Imaging Services [address] [place] [address] OB Anatomy Scan MR#: [id number] Acct: [id number] Name: JUANITA ROBERTS R Rep #: [id number] : 1995 F 23 From: Geovanny Collado MD PCP: Care Physician, No Primary Status: REG CLI Study: OB Anatomy Scan Date of Exam: 08/19/18 Exam# [id number] Ordering Dr: Vandana Villalobos MD ADDENDUM by Geovanny Collado MD on 08/22/18 at 0953 ADDENDUM This is an addendum report for voice recognition error. Head circumference corresponds to 19 weeks and 4 days. Electronically Signed: Geovanny Collado MD at 9:53 EST Tel [phone], Service support , 08/22/18 0953 Date cc: No Primary Care Physician; Vandana Villalobos MD * Signed ADDENDUM by Geovanny Collado MD on 08/22/18 at 0953 US/OB Anatomy Scan 08/22/18 1000 Date cc: No Primary Care Physician; Vandana Villalobos MD * Signed STUDY: SECOND AND THIRD TRIMESTER OBSTETRICAL ULTRASOUND REASON FOR EXAM: Female, 23 years old. Routine survey. LMP: Unknown. TECHNIQUE: Transabdominal TECHNICAL QUALITY: Adequate. PRIOR ULTRASOUND: Comparison is made with prior study dated June 01, 2018. FINDINGS: There is a single intrauterine fetus. The fetus is in a cephalic presentation. There is demonstrated cardiac activity with a heart rate of 138 bpm. There is a normal amniotic fluid volume. The largest amniotic fluid pocket measures 7.1 cm x 1.9 cm. The amniotic fluid index (SSUHANT) is within normal limits. The placenta is anterior in location and is not low lying. There are Grade 0 placental changes. The cervix measures 3.9 cm in length. The bilateral adnexal regions are normal. BIOMETRY: BPD: 4.15 cm: 18 weeks, 5 days HC: 16.87 cm: 90 weeks, 4 days AC: 14.45 cm: 19 weeks, 6 days FL: 3.09 cm: 90 weeks, 5 days CI: 69% FL/BPD: 74% FL/HC: FL/AC: 21% HC/AC: 1.17 age by current US: 19 weeks, 1 days. ANATOLIY by current US: January 09, 2019. Estimated weight: 304 grams, +/- 44 grams, 26 %. ANATOMY: Gender: Female Cranium: Normal lateral ventricles. Normal choroid plexus. Normal cerebellum. Normal cisterna magna. Normal face, nose and lips. Chest: Normal 4-chamber heart. Abdomen/Pelvis: Normal diaphragm. Normal stomach. Normal abdominal wall. Normal cord insertion. Normal 3 vessel cord. Normal kidneys. Normal bladder. Spine: Normal cervical spine. Normal thoracic spine. Normal lumbar spine. Normal sacrum. Extremities: Normal bilateral upper extremities. Normal bilateral lower extremities. US/OB Anatomy Scan IMPRESSION: Single live intrauterine gestation with a mean gestational age of 19 weeks and 4 days. The measurements obtained today following the normal expected range. Electronically Signed: Geovanny Collado MD at 14:45 EST Tel [phone], Service support , CC: No Primary Care Physician; Vandana Villalobos MD Manufacturing Design Engineer: Signed CIGARETTE PAPER TESTER OFFICE VISIT Observed: 08/03/2018 Status: F Source: [place] REPORT 9:42 AM [facility] REPOSITORY [facility] [address] [place] [address] OFFICE VISIT Date of Service: 08/03/18 MR#: [id number] Acct: [id number] Name: JUANITA ROBERTS Rep #: [id number] : 1995 Provider: Vandana Villalobos MD Age/Sex: 23/F Location: [facility] Status: Signed Intake Vital Signs08/03/18 Body Mass Index (BMI) 26.4 08/03/18 Height 5 ft 4 in 08/03/18 Weight: 152 lb 8 oz 08/03/18 Body Mass Index (BMI) 26.2 08/03/18 Blood Pressure 110/78 Intake Visit Reasons: est ob 18w Chief Complaint: est ob Food Processing Chemist Required: No Is patient in pain?: No Allergies amoxicillin [Amoxicillin] Allergy (Mild, Verified 08/03/18 09:22) Rash Medications docosahexanoic acid 200 mg capsule mg PO cap 06/07/18 [History Confirmed 08/03/18] Last Menstral Period: 04/06/18 Zika: [facility] virus screening: [facility] Medical History Mgrn w aura wo [...] additional social history: - Galdino- Works at [employer] Patient works at [employer] Pregancy History 3 Elective abortions Hx Para 1 Spontaneous abortions Past Pregnancies Del. DateName GA/Weeks Outcome Route Bth WeighInfant GeLabor LgtAnesthesiDel LocatProvider FOB t n h a n Delivery Date: 10/25/17 On 06/07/18 @ 11:07 Aura Bloom Elevated blood pressure at end of was induced due to. HPI est ob 18w: Details: JUANITA ROBERTS is a 23 year old who presents for routine OB visit. OB Visit ANATOLIY Calculator Estimated Delivery Date 01/06/19 Based on Ultrasound Date 06/01/18 Current WG 17w 5d Number 1 Expected Delivery Route/Plan Specific Issue/Plans flu vaccine: given tdap vaccine: [] rhogam: [] LARC form signed: [] labor support person: [] pain management: [] cut cord/dad catch: [] : [] PP control planned: [] special requests: [] Initial Weight: 147 lb Date Weight BP Urine PrFHR FuHt Pres MoCTX DilationFetal StVisit NoProviderComments E ot v te GA G Effac lucose ed Visit Notes Visit Date: 08/03/18 no vb lof some fm no regular ctx Vandana Villalobos MD on 08/03/18 Visit Date: 06/29/18 No VB, LOF. Some [...] Urine Culture: Sequential Screen: NIPT Screen: Results [id number] Office Urine Glucose Negative Last Edit by Mary Peralta on 08/03/18 09:25 Office Urine Protein Negative Last Edit by Mary Peralta on 08/03/18 09:25 Assessment AND Plan Problems 1. Urinary tract infection in mother during second trimester of O23.42 treated, repeat UA WNL and negative 2. Genital herpes affecting in second trimester O98.312; A60.09 acyclovir at 36 weeks 3. 17 weeks gestation of Z3A.17 genetic, carrier, ntd screening declined. anatomy scan ordered 4. Supervision of normal intrauterine in multigravida in second trimester Z34.82 ANATOLIY 01/06/19 KEMAL Ahmadi Plan ACOG trimester education reviewed and updated. see problem list details for updated plan management information and see below for orders placed at this visit. GA appropriate handout given. get blood work drawn today declines additional screenings. Orders Orders: Coding Level of Care Code OB Routine Diagnoses Urinary tract infection in mother during second trimester of O23.42 Trimester: second trimester Genital herpes affecting in second trimester O98.312; A60.09 Trimester: second trimester 17 weeks gestation of Z3A.17 Weeks of gestation: 17 weeks Supervision of normal intrauterine in multigravida in second trimester Z34.82 Trimester: second trimester 08/03/18 0942 <Electronically signed by Vandana Villalobos MD> Date Vandana Villalobos MD Cosigner Signature: Date (if applicable) CC: URINALYSIS, COMPLETE Collected: 07/30/2018 Status: F Source: [place] 12:33 PM [facility] REPOSITORY Order Comment: How was Urine Obtained? CLEAN CATCH TYPE CODE TESTS RESULT OUT OF RANGE REFERENCE UNITS LAB L400.3000 Yellow COLOR Normal Straw LAB L400.3050 Clear Normal CLARITY Clear LAB L400.3200 Normal mg/dl Normal GLUCOSE, UR Normal LAB L400.3300 Negative mg/dL Normal BILIRUBIN URINE Negative LAB L400.3400 Negative mg/dl Normal KETONE UR Negative LAB L400.3465 1.002-1.030 Normal SP.GR. DIPSTX 1.010 LAB L400.3550 5.0 - 8.0 pH UR Normal 6.5 LAB L400.3600 Negative mg/dl PROT Normal DIPSTX Negative LAB L400.3700 Normal mg/dl Normal UROBILI Normal LAB L400.3750 Negative Normal NITRITE UR Negative LAB L400.3780 Negative /ul Normal OCCULT BLOOD-UR Negative LAB L400.3800 Negative /ul LEUK Normal ESTERASE Negative LAB L400.4050 0-5 /hpf WBC Normal 0-5 SEEN LAB L400.4100 0-5 /hpf 0 Normal RBC-UA SEEN LAB L400.4150 5-10 /hpf SQUAM Normal EPI 0-5 SEEN LAB L400.4300 None Seen /hpf 0 Normal BACTERIA SEEN LAB L400.4350 <or=2+ /hpf 0 Normal MUCUS, URINE SEEN Performed By: #### L400.0001 #### [facility] [address] [place], [address] CIGARETTE PAPER TESTER OFFICE VISIT Observed: 07/05/2018 Status: F Source: [place] REPORT 3:45 PM [facility] [place] [facility] [address] [place] [address] OFFICE VISIT Date of Service: 06/29/18 MR#: [id number] Acct: [id number] Name: JUANITA ROBERTS Rep #: [id number] : 1995 Provider: GIUSEPPE Arthur Age/Sex: 23/F Location: [facility] Status: Signed Intake Vital Signs06/29/18 Height 5 ft 4 in 06/29/18 Weight: 147 lb 06/29/18 Body Mass Index (BMI) 25.2 06/29/18 Blood Pressure 98/78 Intake Visit Reasons: est ob 14w Chief Complaint: est ob, uti Food Processing Chemist Required: No Is patient in pain?: Yes [...] No PFSH PFSH Medical History Mgrn w nirua wo [facility] mgrn (Acute) Surgical History S/P tonsillectomy and [...] additional social history: - Galdino- Works at [employer] Patient works at [employer] Pregancy History 3 Elective abortions Hx Para [...] 06/29/18 No VB, LOF. Some dysuria, backache Patsy [place] NP-C on 06/29/18 ACOG First Trimester First Trimester: [...] Medications New: nitrofurantoin monohyd/m-cryst 100 mg (Macrobid) [id number] mg PO BID 7 days 14 caps 0RF administer with a meal/food Coding Level of Care Code OB Routine Diagnoses Supervision of normal intrauterine in multigravida in first trimester Z34.81 Trimester: first trimester 12 weeks gestation of Z3A.12 Weeks of gestation: 12 weeks Genital herpes affecting in first trimester O98.311 Trimester: first trimester 07/05/18 1545 <Electronically signed by Patsy SINGH> Date Patsy SINGH Cosigner Signature: Date (if applicable) CC: Observed: 06/29/2018 Status: F Source: [place] CULTURE, URINE 12:00 AM [facility] REPOSITORY Urine Culture ORGANISM 1: Klebsiella pneumoniae sp pneum Halfway Count >100,000 Klebsiella pneumoniae sp pneum: REACTION [...] <=20 S (NF) indicates non-formulary drug at [facility]. Approval by Infectious Disease Specialist required before non-formulary drugs may be ordered and/or dispensed. Performed By: #### M100.0650 #### [facility] [address] [place], [address] CT/NG WCH BY PCR Collected: 06/07/2018 Status: F Source: [place] 5:44 PM [facility] REPOSITORY TYPE CODE TESTS RESULT OUT OF RANGE REFERENCE UNITS LAB L8200.2100 Negative Normal Chlam Negative Trac PCR LAB L8200.2200 Negative Normal NG by Negative PCR Performed By: #### L8200.2000 #### [facility] [address] [place], [address] Observed: 06/07/2018 Status: F Source: [place] CULTURE, URINE 5:44 PM [facility] REPOSITORY Urine Culture Below infection level. ORGANISM 1: Mixed Gram Positive Organisms Halfway Count 1000-10,000 Performed By: #### M100.0650 #### [facility] [address] [place], [address] CIGARETTE PAPER TESTER OFFICE VISIT Observed: 06/07/2018 Status: F Source: [place] REPORT 12:02 PM [facility] REPOSITORY [facility] [address] [place] [address] OFFICE VISIT Date of Service: 06/07/18 MR#: [id number] Acct: [id number] Name: JUANITA ROBERTS Rep #: [id number] : 1995 Provider: Vandana Villalobos MD Age/Sex: 23/F Location: [facility] Status: Signed Intake Vital Signs06/07/18 Height 5 ft 4 in 06/07/18 Weight: 145 lb 11/06/18 Body Mass Index (BMI) 24.9 06/07/18 Blood Pressure 104/72 Intake Visit Reasons: NOB-LMP unknown Food Processing Chemist Required: No Accompanied by: Is patient in pain?: No Allergies amoxicillin [Amoxicillin] Allergy (Mild, Verified 06/07/18 11:00) Rash Medications Amitriptyline HCl [Elavil] 10 mg PO QHS 06/10/15 [History Confirmed 06/10/15] Clindamycin HCl 150 mg PO TID #10 day 06/10/15 [Rx] Hydrocodone Bitart/Apap 5-325 [Aurora 5MG-325MG] 1 tab PO Q6H PRN PRN #10 tab 06/10/15 [Rx] acetaminophen 500 mg tablet 500 mg PO Q6H PRN 06/07/18 [History Confirmed 06/07/18] docosahexanoic acid 200 mg capsule mg PO cap 06/07/18 [History Confirmed 06/07/18] Last Menstral Period: 04/06/18 Zika: Zika virus screening: Negative : Yes PFSH PFS Medical History Mgrn w aura wo [facility] mgrn (Acute) Surgical History S/P tonsillectomy and [...] additional social history: - Galdino- Works at [employer] Patient works at [employer] Pregancy History 3 Elective abortions Hx Para [...] Pulmonary (e.g.,TB,Asthma), Seasonal allergies, Drug/latex allergies/reactions, Breast, Implant Polisher surgery, Anesthetic complications, History of abnormal pap, [...] comfortable, no acute distress Orientation: alert [facility] Head: normal to inspection, atraumatic, normocephalic Ears: [...] multigravida in first trimester Z34.81 ANATOLIY 01/06/19 KEMAL Granado Galdino Plan Patient oriented to practice and discussed care expectations and screenings. ACOG book offered to patient. Discussed routine and specially indicated labs if needed- patient consents to testing. see problem list details for plan information. Optional screening including carrier screenings, neural tube defect screening, sequential screening, and NIPT screening offered to patient and patient chose: discussed Orders Orders: Medications Discontinued: Flucelvax Quad [id number] (PF) (flu vac qs 260 mcg (0.5 mL) IM ONCE 1 mL 0RF NS Z23, Z34.90 018(4 yr up)CD(PF)) Discontinued Reason: Office Medication has been Documented as given Supplemental Info ACOG book given and patient encouraged to read about nutrition, exercise, weight gain, and food avoidance in . Office Meds Flucelvax Quad [id number] (PF) Performing Provider: Vandana Villalobos MD Administered by: Aura Bloom on 06/07/18 11:23 Dose Route Admin Location Lot Number Expiration Date NDC Claims Adjuster Crop 60 mcg IM left deltoid [id number] 01/29/19 88295-418-05 SEQIRUS Coding Level of Care Code OB Routine Diagnoses Genital herpes affecting in first trimester O98.311; A60.09 Trimester: first trimester 9 weeks gestation of Z3A.09 Weeks of gestation: 9 weeks Supervision of normal intrauterine in multigravida in first trimester Z34.81 Trimester: first trimester 06/07/18 1202 <Electronically signed by Vandana Villalobos MD> Date Vandana Villalobos MD Cosigner Signature: Date (if applicable) CC: INIT OB < 14WKS US Observed: 06/01/2018 Status: F Source: [place] 1:58 PM [facility] REPOSITORY [facility] Imaging Services [address] [place] [address] Init OB < 14Wks US MR#: [id number] Acct: [id number] Name: JUANITA ROBERTS Rep #: [id number] : 1995 F 23 From: Geovanny Collado MD PCP: Care Physician, No Primary Status: REG CLI Study: Init OB < 14Wks US Date of Exam: 06/01/18 Exam# [id number] Ordering Dr: Patsy Arthur STUDY: FIRST TRIMESTER OBSTETRICAL ULTRASOUND REASON FOR [...] Geovanny Collado MD at 14:47 EDT Tel [phone], Service support , CC: GIUSEPPE Arthur; No Primary Care Physician Manufacturing Design Engineer: Signed HCG TITER QUANT., Collected: 05/23/2018 Status: F Source: [place] 5:01 PM [facility] TYPE CODE TESTS RESULT OUT OF RANGE REFERENCE UNITS LAB L700.8000 <9 non-preg mIU/mL High HCG 20628 QUANT. Performed By: #### L700.8000 #### [facility] [address] [place], [address] PROGRESS Observed: 12/08/2017 Status: COMPLETED Source: [place] 2:17 PM [facility] REPOSITORY HNO ID: [id number] Author: Tracy Boyle (911 Emergency Dispatcher) Service: (none) Author Type: Nurse Practitioner Type: Progress Notes Filed: 12/08/2017 2:49 PM Note Text: VISIT Juanita Roberts is a 22 year old year old here for visit. 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 [employer] Social History Main Topics Smoking status: Never [...] external genitalia normal, normal Bartholin's glands, urethra, Bellflower's glands, no vulvar lesions, no cervical lesions, [...] for annual exams and PRN Tracy Boyle (911 Emergency Dispatcher) PROGRESS Observed: 11/27/2017 Status: COMPLETED Source: [place] 4:22 AM CLINIC OTHER CAMPUS REPOSITORY HNO ID: [id number] Author: Downtime Note Service: (none) Author Type: (none) Type: Progress Notes Filed: 11/27/2017 4:31 AM Note Text: Epic Scheduled Downtime: 11/26/2017 11:34:32 PM to 11/27/2017 4:17:42 AM PROGRESS Observed: 10/26/2017 Status: COMPLETED Source: [place] 9:07 AM [facility] OTHER CAMPUS REPOSITORY HNO ID: [id number] Author: Sonja Vee APRN.CNM Service: Obstetrics Author Type: Aircraft Dispatcher Type: Progress Notes Filed: 10/26/2017 9:08 AM [...] 18 99 % 36.6 ?C (97.9 ?F) 10 HT/WT/BMI: Height Weight BMI 162.6 cm (5' 4) 83 kg (183 lb) 31.41 LABS Diagnostic tests reviewed for today's visit: Most recent labs and imaging results. SIGNATURE: Sonja Vee APRN.CNM PATIENT NAME: Juanita Roberts DATE: October 26, 2017 TIME: 9:08 AM HEMATOCRIT Collected: 10/26/2017 Status: F Source: [place] 6:47 AM [facility] OTHER [place] REPOSITORY TYPE CODE TESTS RESULT OUT OF REFERENCE UNITS RANGE LAB HCT 36.0-46.0 % Low Hematocrit 33.8 Performed By: #### HCT, HGB #### [place] [address] HEMOGLOBIN Collected: 10/26/2017 Status: F Source: [place] 6:47 AM [facility] OTHER [place] REPOSITORY TYPE CODE TESTS RESULT OUT OF REFERENCE UNITS RANGE LAB HGB 11.5-15.5 g/dL Low Hemoglobin 11.4 Performed By: #### HCT, HGB #### [facility] [address] [place] [address] NOTE Observed: 10/25/2017 Status: COMPLETED Source: [place] 9:55 AM CLINIC OTHER CAMPUS REPOSITORY HNO ID: [id number] Author: Sonja Lord) KENIA Vee Service: Obstetrics Author Type: Aircraft Dispatcher Type: LANDD Delivery Note Filed: 10/25/2017 9:58 AM Note Text: OBSTETRICS DELIVERY SUMMARY - VAGINAL DELIVERY Gestational Age at Delivery: 37w3d Service Date: 10/25/2017 Service Time: 9:55 AM Praneeth Roberts-Juanita [[id number]] Labor Events Rupture Date: 10/24/17 Rupture Time: 1736 Rupture Type: AROM Fluid Color: Clear Induction: Yes Induction Method: Oxytocin Episiotomy/Laceration: Episiotomy: None Lacerations: None Estimated Blood Loss (mL): Estimated Blood Loss (mL): 250 Date and Time of : Date of : 10/25/17 Time of : 852 Delivery Information: Primary Reason for Delivery : Labor Additional Clinicial Indicator(s) for delivery: Hypertension Delivery type: Vaginal, Spontaneous Delivery Presentation: Vertex Shoulder Dystocia Present: No Vacuum Used: No Forceps Used: No Cord: Complications: Nuchal without Compression Nuchal Cord Findings: x 1 Delayed Cord Clamping: No Placenta: Delivered: 10/25/2017 9:01 AM Removal: Spontaneous Appearance: Intact Anesthesia: Method: None Measurements, Apgars: Code [place] [place] [employer] Called: No A digital ?sweep? of the [...] BLOOD GASES,CORD,ART Collected: 10/25/2017 Status: F Source: [place] (FOR [facility] AND [facility]) 8:57 AM CLINIC OTHER CAMPUS REPOSITORY TYPE CODE TESTS RESULT OUT OF REFERENCE UNITS RANGE LAB PHC 7.18-7.38 pH 7.38 LAB PCO2C 32-66 mm Hg pCO2 35 LAB PO2C 5.5-30.5 mm Hg pO2 High 44 LAB HCO3C 17-27 mmol/L Bicarbonate 21 LAB BDC 4.4-8.3 mmol/L Low Base Deficit 3.4 Performed By: #### COBG #### [place] [id number] [place] [address] PROGRESS Observed: 10/25/2017 Status: COMPLETED Source: [place] 8:50 AM [facility] REPOSITORY HNO ID: [id number] Author: Sonja Lord) KENIA Vee Service: Obstetrics Author Type: Aircraft Dispatcher Type: Progress Notes Filed: 10/25/2017 9:13 AM Note Text: Called to room due to patient feeling urge to push. Checked by RN and found to have an anterior lip. CTX q 2-4 min FHR 140s no accels no decels moderate variability VE: complete/ + 2 Assessment:Complete/ +2 Fetus Category I Plan: Push to delivery. Sonja Vee APRN.CNM PROGRESS Observed: 10/25/2017 Status: COMPLETED Source: [place] 5:45 AM [facility] REPOSITORY HNO ID: [id number] Author: Tessa Lord) KENIA Velasquez Service: Obstetrics Author Type: Aircraft Dispatcher Type: Progress Notes Filed: 10/25/2017 7:00 AM Note Text: OBSTETRICS INTRAPARTUM PROGRESS NOTE SERVICE DATE: October 25, 2017 SERVICE TIME: 0545 Subjective Has pain with contractions but declines intervention. Objective LAST VITALS: Pulse BP Resp O2 Sat Temp Pain 96 141/71 20 100 % 37 ?C (98.6 ?F) 910 PHYSICAL EXAM: Cervical Exam: unchanged. CERVICAL EXAM: Last Exam Notes: Dilation: 6 (10/25/17 0544 : Kelly Becerril RN) Effacement (%): 100 (10/25/17 0544 : Kelly Becerril RN) Station: 1 (10/25/17 0544 : Kelly Becerril RN) Presentation: Vertex (10/25/17 0133 : Kelly Becerril RN) MEMBRANES: Status: Membrane Status: Artificial (10/24/17 1736 : Madyson Heath Dong RN) Rupture Date: 10/24/17 (10/24/171735 : Madyson Dong RN) Rupture Time: 1736 (10/24/17 173 : Madyson Dong RN) Amniotic Fluid Color: Clear (10/24/171735 : Madyson oDng RN) Amniotic Fluid Amount: Scant (10/24/171735 : Madyson Dong RN) Additional Findings: None MONITORING Baseline: 150 bpm (10/25/1730 : Kelly Becerril RN) Variability: Moderate (6-25 bpm) (10/25/17629 : Kelly Becerril RN) Accelerations: Present (10/25/17629 : Kelly Becerril RN) Decelerations: Decelerations: None (10/25/17629 : Kelly Becerril RN) Contractions: Regular (10/25/17629 : Kelly Becerril RN) Frequency: 2-3 (10/25/17629 : Kelly Becerril RN) NST Interpretation: FHR Category: 1 (10/25/17629 : Kelly Becerril RN) FHR Category: Category [...] #: PROGRESS Observed: 10/25/2017 Status: COMPLETED Source: [place] 4:53 AM CLINIC OTHER CAMPUS REPOSITORY HNO ID: [id number] Author: Tessa Velasquez APRN.CNM Service: Obstetrics Author Type: Aircraft Dispatcher Type: Progress Notes Filed: 10/25/2017 4:56 AM Note Text: OBSTETRICS INTRAPARTUM PROGRESS NOTE SERVICE DATE: October 25, 2017 SERVICE TIME: 045 Subjective Has pain with contractions but declines intervention. and utilizing shower for pain management. Objective LAST VITALS: Pulse BP Resp O2 Sat Temp Pain 98 130/80 20 100 % 37.3 ?C (99.1 ?F) 04/11 PHYSICAL EXAM: Uterus: soft, NT, EFW 6#5oz#, [...] 1736 : Madyson Dong RN) Additional Findings: None MONITORING Baseline: 150 bpm (10/25/17 0430 : Kelly Becerril RN) Variability: Moderate (6-25 bpm) (10/25/17 0430 : Kelly Becerril RN) Accelerations: Present (10/25/17 0430 : Kelly Becerril RN) Decelerations: Decelerations: None (10/25/17 0430 : Kelly Becerril RN) Contractions: Regular (10/25/17 0430 : Kelly Becerril RN) Frequency: 2-3 (10/25/17 0430 : Kelly Becerril RN) NST Interpretation: FHR [...] 6. AROM at approximately 1745 SIGNATURE: Tessa Vleasquez APRN.CNM PATIENT NAME: Juanita Roberts DATE: October 25, 2017 TIME: 4:53 AM PAGER/CONTACT #: PROGRESS Observed: 10/25/2017 Status: COMPLETED Source: [place] 3:16 AM CLINIC OTHER CAMPUS REPOSITORY HNO ID: [id number] Author: Tessa Velasquez APRN.CNM Service: Obstetrics Author Type: Aircraft Dispatcher Type: Progress Notes Filed: 10/25/2017 3:18 AM Note Text: OBSTETRICS INTRAPARTUM PROGRESS NOTE SERVICE DATE: October 25, 2017 SERVICE TIME: 0305 Subjective Has pain with contractions but declines intervention. and currently using N2O Objective LAST VITALS: Pulse BP Resp O2 Sat Temp Pain 99 141/83 20 100 % 36.9 ?C (98.4 ?F) 7/10 PHYSICAL EXAM: Extremities: 2+ edema Cervical Exam: 6/100/0-+1 CERVICAL EXAM: Last Exam Notes: Dilation: 6 (10/25/17303 : Angela Scott RN) Effacement (%): 100 (10/25/17303 : Angela Scott RN) Station: 1 (10/25/17303 : Angela Scott RN) Presentation: Vertex (10/25/17 0133 : Kelly Becerril RN) MEMBRANES: Status: Membrane Status: Artificial (10/24/171735 : Madyson Dong, RN) Rupture Date: 10/24/17 (10/24/171735 : Madyson Dong RN) Rupture Time: 1737 (10/24/17 1736 : Madyson Dong RN) Amniotic Fluid Color: Clear (10/24/171735 : Madyson Dong RN) Amniotic Fluid Amount: Scant (10/24/171735 : Madyson Dong RN) Additional Findings: None MONITORING Baseline: 145 bpm (10/25/17 0230 : Kelly Becerril RN) Variability: Moderate (6-25 bpm) (10/25/17 0230 : Kelly Becerril RN) Accelerations: Present (10/25/17229 : Kelly Becerril RN) Decelerations: Decelerations: None (10/25/17229 : Kelly Becerril RN) Contractions: Regular (10/25/17229 : Kelly Becerril RN) Frequency: 1.5-3 (10/25/17229 : Kelly Becerril RN) NST Interpretation: FHR Category: 1 (10/25/170 : Kelly Becerril RN) FHR Category: Category [...] #: PROGRESS Observed: 10/25/2017 Status: COMPLETED Source: [place] 2:00 AM CLINIC OTHER CAMPUS REPOSITORY O ID: [id number] Author: Tessa Velasquez APRN.CNM Service: Obstetrics Author Type: Aircraft Dispatcher Type: Progress Notes Filed: 10/25/2017 2:07 AM Note Text: Pt is breathing well through contractions and states, I'm stuck, Yun. I'm stuck at 5cm. FHR is category 1. Last VE by RN shows 570/-1. Last temp was 37.9. Pt is encouraged and told that she needs to keep sounds low. Order placed for N2O. Will evaluate cervix in 2 hours. Monitor temp closely. PROGRESS Observed: 10/24/2017 Status: COMPLETED Source: [place] 11:00 PM CLINIC OTHER CAMPUS REPOSITORY HNO ID: [id number] Author: Erna Perdue APRN.CNM Service: Obstetrics Author Type: Aircraft Dispatcher Type: Progress Notes Filed: 10/24/2017 11:05 PM [...] Cedeño APRN.CNM) MEMBRANES: Status: Membrane Status: Artificial (10/24/171735 : Madyson Dong RN) Rupture Date: 10/24/17 (10/24/171735 : Madyson Dong RN) Rupture Time: 1736 (10/24/171735 : Madyson Dong RN) Amniotic Fluid Color: [...] #: PROGRESS Observed: 10/24/2017 Status: COMPLETED Source: [place] 7:55 PM CLINIC OTHER CAMPUS REPOSITORY HNO ID: [id number] Author: Erna Perdue APRN.CNM Service: Obstetrics Author Type: Aircraft Dispatcher Type: Progress Notes Filed: 10/24/2017 7:58 PM Note Text: OBSTETRICS INTRAPARTUM PROGRESS NOTE SERVICE DATE: October 24, 2017 SERVICE TIME: 7:55 PM Subjective Has pain with contractions but declines intervention. Objective LAST VITALS: Pulse BP Resp O2 Sat Temp Pain 86 137/83 18 100 % 36.3 ?C (97.3 ?F) 01/09 PHYSICAL EXAM: Uterus: soft, NT CERVICAL EXAM: Last Exam Notes: Dilation: 4.5 (10/24/171735 : Madyson Dong, RN) Effacement (%): 70 (10/24/171735 : Madyson Dong, RN) Station: -1 (10/24/171735 : Madyson Dong, RN) Presentation: Vertex (10/24/17 1635 : Candy Cedeño APRN.CNM) MEMBRANES: Status: Membrane Status: Artificial (10/24/171735 : Madyson Dong RN) Rupture Date: 10/24/17 (10/24/171735 : Madyson Dong RN) Rupture Time: 1736 (10/24/171735 : Madyson Dong RN) Amniotic Fluid Color: [...] #: PROGRESS Observed: 10/24/2017 Status: COMPLETED Source: [place] 5:43 PM CLINIC OTHER CAMPUS REPOSITORY HNO ID: [id number] Author: Candy Cedeño APRN.CNM Service: Obstetrics Author Type: Aircraft Dispatcher Type: Progress Notes Filed: 10/24/2017 5:47 PM Note Text: OBSTETRICS INTRAPARTUM PROGRESS NOTE SERVICE DATE: October 24, 2017 SERVICE TIME: 1744 Subjective Patient resting with peanut ball, instrumentation technologist at bedside. Objective LAST VITALS: Pulse BP Resp O2 Sat Temp Pain 89 124/81 16 100 % 36.7 ?C (98.1 ?F) 12/09 PHYSICAL EXAM: VE: 4-5cm/70%/-1, AROM clear fluid, vtx CERVICAL EXAM: Last Exam Notes: Dilation: 4.5 (10/24/171735 : Madyson Dong RN) Effacement (%): 70 (10/24/171735 : Madyson Dong RN) Station: -1 (10/24/17 1736 : Madyson Dong RN) Presentation: Vertex (10/24/17 1635 : Candy Cedeño APRN.CNM) MEMBRANES: Status: Membrane Status: Artificial (10/24/17 1736 : Madyson Dong RN) Rupture Date: 10/24/17 (10/24/17 173 : Madyson Dong RN) Rupture Time: 1736 (10/24/17 173 : Madyson Dong RN) Amniotic Fluid Color: Clear (10/24/171735 : Madyson Dong, HEATH) Amniotic Fluid Amount: Scant (10/24/171735 : Madyson Dong RN) Additional Findings: AROM [...] 24, 2017 TIME: 5:44 PM PAGER/CONTACT #: [phone] PROGRESS Observed: 10/24/2017 Status: COMPLETED Source: [place] 4:43 PM CLINIC OTHER CAMPUS REPOSITORY O ID: [id number] Author: Candy Cedeño APRN.CNM Service: Obstetrics Author Type: Aircraft Dispatcher Type: Progress Notes Filed: 10/24/2017 4:48 PM [...] AROM if able. SIGNATURE: Candy Cedeño APRN.CNM APRN.CNP PATIENT NAME: Juanita Roberts DATE: October 24, 2017 TIME: 4:43 PM PAGER/CONTACT #: PROGRESS Observed: 10/24/2017 Status: COMPLETED Source: [place] 3:09 PM CLINIC OTHER CAMPUS REPOSITORY HNO ID: [id number] Author: Candy Cedeño APRN.CNM Service: Obstetrics Author Type: Aircraft Dispatcher Type: Progress Notes Filed: 10/24/2017 3:15 PM Note Text: OBSTETRICS INTRAPARTUM PROGRESS NOTE SERVICE DATE: October 24, 2017 SERVICE TIME: 1430 Subjective Pt reports contractions have been getting more uncomfortable for the past hour. Currently sitting in bedside chair with instrumentation technologist providing leg massage. Objective LAST VITALS: Pulse BP Resp O2 Sat Temp Pain 89 124/81 16 100 % 36.4 ?C (97.5 ?F) 10/09 PHYSICAL EXAM: Cervical Exam: deferred CERVICAL EXAM: Last Exam Notes: Dilation: 1 (10/24/17813 : Monica Dodd) English RN) Effacement (%): 70 (10/24/17813 : Monica Dodd) English RN) Station: -1 (10/24/17813 : Monica Dodd) English RN) Presentation: (not recorded) MEMBRANES: Status: Membrane Status: Intact (10/24/17813 : Monica Dodd) English RN) Additional Findings: Traction on faith secured to leg, in place. MONITORING Baseline: 145 bpm (10/24/17 1459 : Monica Dodd) English RN) Variability: Moderate (6-25 bpm) (10/24/17 145 : Monica Dodd) English RN) Accelerations: Present (10/24/179 : Monica Dodd) English RN) Decelerations: Decelerations: (!) Variable (10/24/17 1430 : Monica Dodd) English RN) Contractions: Regular (10/24/171458 : Monica Dodd) , RN) Frequency: 1-2.5 (10/24/17 1459 : Monica [...] defer. B/P are stable. SIGNATURE: Candy Cedeño APRN.SNEHAL DOHERTY PATIENT NAME: Juanita Roberts DATE: October 24, 2017 TIME: 3:09 PM PAGER/CONTACT #: PROGRESS Observed: 10/24/2017 Status: COMPLETED Source: [place] 12:01 PM [facility]INIC OTHER CAMPUS REPOSITORY HNO ID: [id number] Author: Candy Lord) KENIA Cedeño Service: Obstetrics Author Type: Aircraft Dispatcher Type: Progress Notes Filed: 10/24/2017 12:05 PM Note Text: OBSTETRICS INTRAPARTUM PROGRESS NOTE SERVICE DATE: October 24, 2017 SERVICE TIME: 1200p Subjective Patient with no complaints. and feeling some cramping, less than immediately after cervical bulb placement. On birthing ball at present. Objective LAST VITALS: Pulse BP Resp O2 Sat Temp Pain 75 136/86 16 100 % 36.4 ?C (97.5 ?F) 5/10 PHYSICAL EXAM: Cervical Exam: deferred CERVICAL EXAM: Last Exam Notes: Dilation: 1 (10/24/17813 : Monica Dodd) , RN) Effacement (%): 70 (10/24/17813 : Monica Dodd) , RN) Station: -1 (10/24/17813 : Monica Dodd) , RN) Presentation: (not recorded) MEMBRANES: Status: Membrane Status: Intact (10/24/17813 : Monica Dodd) , RN) Additional Findings: Cervical bulb in place. MONITORING Baseline: 130 bpm (10/24/17 1130 : Madyson Dodd) Letitia, RN) Variability: Moderate (6-25 bpm) (10/24/17 1130 : Madyson Dodd) Letitia, RN) Accelerations: Present (10/24/17 1130 : Madyson Dong, RN) Decelerations: Decelerations: None (10/24/17 1130 : Madyson Dong, RN) Contractions: Irregular (10/24/17 1130 : Madyson Dodd) Letitia, RN) Frequency: 1.3.5 (10/24/17 1130 : Madyson Dong, RN) NST Interpretation: FHR Category: 1 (10/24/17 1130 : Madyson Dong, RN) FHR Category: Category I LABS Diagnostic [...] avoid at this time. SIGNATURE: Candy Cedeño APRN.CNM APRN.CNP PATIENT NAME: Juanita Roberts DATE: October 24, 2017 TIME: 12:02 PM PAGER/CONTACT #: [phone] PROGRESS Observed: 10/24/2017 Status: COMPLETED Source: [place] 8:49 AM CLINIC OTHER CAMPUS REPOSITORY O ID: [id number] Author: Candy Lord) KENIA Cedeño Service: Obstetrics Author Type: Aircraft Dispatcher Type: Progress Notes Filed: 10/24/2017 9:27 AM [...] Exam Notes: Dilation: 1 (10/24/17813 : Monica ThompsonRn) , RN) Effacement (%): 70 (10/24/17813 : Monica Dodd) , RN) Station: -1 (10/24/17813 : Monica ThompsonRn) , RN) Presentation: (not recorded) MEMBRANES: Status: Membrane Status: Intact (10/24/17813 : Monica Asencio (Heath) English RN) Additional Findings: Faith bulb placed in the cervix Speculum exam done, no lesions noted MONITORING Baseline: 140 bpm (10/24/17829 : Monica Asencio (Heath) English RN) Variability: Moderate (6-25 bpm) (10/24/17829 : Monica Dodd) English RN) Accelerations: Present (10/24/17829 : Monica Dodd) English RN) Decelerations: Decelerations: None (10/24/17829 : Monica Asencio (Heath) English RN) Contractions: Regular (10/24/17829 : Monica Asencio (Heath) English RN) Frequency: 1-4 (10/24/17829 : Monica Asencio (Heath) English RN) NST Interpretation: FHR Category: 1 (10/24/17829 : Monica Dodd) HEATH Zhou) FHR Category: Category I LABS Diagnostic tests [...] updated on patient status. SIGNATURE: Candy Cedeño APRN.SNEHAL GEORGE.DIANE PATIENT NAME: Juanita Roberts DATE: October 24, 2017 TIME: 8:49 AM PAGER/CONTACT #: [phone] NURSING PROG Observed: 10/24/2017 Status: COMPLETED Source: [place] 7:09 AM [facility] OTHER CAMPUS REPOSITORY O ID: [id number] Author: Quincy Dodd) HEATH Rust Service: Nursing Author Type: Registered Nurse Type: Nursing Progress Note Filed: 10/24/2017 7:09 AM Note Text: Nursing Progress Note Patient Name: Juanita Roberts Patient Location: [place] [id number]* Daily Note: Report given to Trish Zhou RN. Care of patient transferred at this time. Intermittent Category II tracing reviewed with oncoming shift RN. This note was completed by: Quincy Rust RN PROGRESS Observed: 10/24/2017 Status: COMPLETED Source: [place] 6:22 AM [facility] REPOSITORY HNO ID: [id number] Author: Mikayla Watson APRN.CNM Service: Obstetrics Author Type: Aircraft Dispatcher Type: Progress Notes Filed: 10/24/2017 6:46 AM Note Text: Patient hungry and asking for breakfast. Tracing overall reassuring and patient with no complaints of labor. Patient to have breakfast. Will assess for need for continued ripening when next Cytotec is due. Mikayla Watson APRN.CNM PROGRESS Observed: 10/24/2017 Status: COMPLETED Source: [place] 4:00 AM [facility] REPOSITORY HNO ID: [id number] Author: Mikayla Watson APRN.CNM Service: Obstetrics Author Type: Aircraft Dispatcher Type: Progress Notes Filed: 10/24/2017 4:09 AM [...] CERVICAL EXAM: Last Exam Notes: Dilation: Closed (10/23/171729 : Tatianna Cope RN) Effacement (%): 0 (10/23/171729 : Tatianna Cope RN) Station: High (10/23/170 : DUSTIN Amador Rn Presentation: (not recorded) MEMBRANES: Status: Additional Findings: None MONITORING Baseline: 135 bpm (10/24/17 0400 : Leeanne Dodd) HEATH Craig) Variability: Moderate (6-25 bpm) (10/24/17 0400 : Leeanne Dodd) HEATH Craig) Accelerations: Present (10/24/17 0400 : Leeanne Dodd) HEATH Craig) Decelerations: Decelerations: None (10/24/17 0400 : Leeanne (Heath) HEATH Craig) Contractions: Regular (10/24/17 0400 : Leeanne Dodd) HEATH Craig) Frequency: 2-6 (10/24/17 0400 : Leeanne Dodd) HEATH Craig) NST Interpretation: FHR Category: 1 (10/24/17 0400 [...] AM PROGRESS Observed: 10/24/2017 Status: COMPLETED Source: [place] 12:11 AM [facility] OTHER CAMPUS REPOSITORY HNO ID: [id number] Author: Mikayla Watson APRN.CNM Service: Obstetrics Author Type: Aircraft Dispatcher Type: Progress Notes Filed: 10/24/2017 12:14 AM [...] CERVICAL EXAM: Last Exam Notes: Dilation: Closed (10/23/171729 : Tatianna Dodd) HEATH Cope) Effacement (%): 0 (10/23/171729 : Tatianna Dodd) HEATH Cope) Station: High (10/23/170 : Tatianna Ddod) HEATH Cope) Presentation: (not recorded) MEMBRANES: Status: Additional Findings: [...] ANES PREOP Observed: 10/23/2017 Status: COMPLETED Source: [place] 9:51 PM [facility] OTHER CAMPUS REPOSITORY O ID: [id number] Author: Elva Begum (Aa) Service: Anesthesiology Author Type: Case Management Social Worker Type: Anesthesia PreOp Filed: 10/23/2017 9:52 PM [...] - 1.40 mg/dL Final Vitals: 10/23/17 1723 10/23/17 19510/23/17199910/23/172031 BP: 141/88 130/88 119/71 Pulse: 101 97 [...] [facility] Pain Management Plan: Parenteral or Oral EPIC Chart Review ACTIVE PROBLEM LIST Herpes Simplex [...] 10/23/2017 at 0900 Inpatient medications reviewed in [facility]. I have interviewed and examined the [...] 1995 CBC Collected: 10/23/2017 Status: F Source: [place] 7:30 PM CLINIC OTHER CAMPUS REPOSITORY TYPE CODE [...] MPV 9.8 Performed By: #### CBC #### [place] [address] PRE DELIVERY T+S Collected: 10/23/2017 Status: F Source: [place] 7:30 PM CLINIC OTHER CAMPUS REPOSITORY TYPE CODE TESTS RESULT OUT OF REFERENCE UNITS RANGE LAB %ABR A ABO/RH(D) POSITIVE LAB % Antibody NEG Screen Performed By: #### PREDEL #### [address] [address] HISTORY PHYSICAL Observed: 10/23/2017 Status: COMPLETED Source: [place] 6:36 PM [facility] OTHER CAMPUS REPOSITORY HNO ID: [id number] Author: Mikayla Watson APRN.CNM Service: Obstetrics Author Type: Aircraft Dispatcher Type: HANDP Filed: 10/24/2017 4:13 AM Note [...] children: 0 Occupational History Occupation Employer Comment [employer] ENG[employer] Social History Main Topics Smoking [...] No history of dysuria, frequency or 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: Negative for abnormal vaginal bleeding, abnormal vaginal [...] NT Extremities: tr edema FHT: 145 bpm (10/23/17 1710 : Tatianna Cope RN) bpm St Spec Exam: (not done) CERVICAL EXAM: Dilation: Closed (10/23/17 1730 : Tatianna Cope RN) cm Station: High (10/23/171729 : Tatianna Cope RN) Effacement: 0 (10/23/171729 : Tatianna Cope RN) % Position: Presentation: LESVIA Pelvimetry: Pelvimetry clinically assessed as adequate MONITORING/ASSESSMENT: Baseline: 145 bpm (10/23/17 1710 : Tatianna Cope RN) Variability: Moderate (6-25 bpm) (10/23/170 : Tatianna Cope RN) Accelerations: Present (10/23/171709 : Tatianna Cope RN) Decelerations: Decelerations: None (10/23/171709 : Tatianna Cope RN) Contractions: Not present (10/23/170 : Tatianna Cope RN) Frequency: NST Interpretation: reactive FHR Category: 1 (10/23/170 : Tatianna Cope RN) NST Comments: EFW: [...] patient planning for unmedicated . Patient has instrumentation technologist. Procedure, risks, benefits, alternatives, and personnel discussed with patient who agrees to proceed. Plan discussed with Dr. Goyal who agrees with this management SIGNATURE: Mikayla Watson APRN.CNM PATIENT NAME: Juanita Roberts DATE: October 23, 2017 TIME: 6:36 PM PROCEDURE Observed: 10/23/2017 Status: COMPLETED Source: [place] 5:30 PM CLINIC OTHER CAMPUS REPOSITORY HNO ID: [id number] Author: Tatianna Cope RN Service: Nursing Author Type: Registered Nurse Type: [...] PM CBC Collected: 10/23/2017 Status: F Source: [place] 5:00 PM [facility] OTHER [place] REPOSITORY TYPE CODE TESTS RESULT OUT OF [...] Performed By: #### CBC, CMP, URIC #### [place] [address] COMP METABOLIC PANEL Collected: 10/23/2017 Status: F Source: [place] 5:00 [facility] REPOSITORY TYPE CODE TESTS RESULT OUT [...] Performed By: #### CBC, CMP, URIC #### [place] [phone] URIC ACID Collected: 10/23/2017 Status: F Source: [place] 5:00 PM [facility] OTHER [place] REPOSITORY TYPE CODE TESTS RESULT OUT OF RANGE REFERENCE UNITS LAB URIC 2.0-7.0 mg/dL Uric Acid 5.1 Performed By: #### CBC, CMP, URIC #### [place] [address] PROTEIN/CREATININE RATIO Collected: Status: F Source: [place] 10/23/2017 4:30 PM [facility] REPOSITORY TYPE CODE TESTS RESULT OUT OF REFERENCE UNITS RANGE LAB UTPR 0-20 mg/dL <4 Protein Urine Random LAB UCRR 20-300 mg/dL 27.7 Creatinine,Ur ine,Ran LAB PCRAT <0.2 Unable to Protein/Creat calculate because inine Ratio one or more components used in calculation is outside assay range. Performed By: #### PRATIO #### [place] [address] PROGRESS Observed: 10/22/2017 Status: COMPLETED Source: [place] 4:34 PM [facility] REPOSITORY HNO ID: [id number] Author: Turner Kumar Service: (none) Author Type: Physician Type: Progress Notes Filed: 10/27/2017 12:51 PM Note Text: Patient here for a Bp check d/t headache, swelling of face/feet. TruBP used and BP average is 124/87. Patient did have one reading of 126/93. Patient presented for unscheduled BP check. She gets care in [place]. Patient advised to go to either [facility] or [place] [facility] for further evaluation for possible preeclampsia. Turner Kumar MD CNNURSE Observed: 10/22/2017 Status: COMPLETED Source: [place] 4:10 PM [facility] REPOSITORY Nurse Visit (WOOB) JUANITA ROBERTS ([id number]) 1995 F [facility] Date Time Provider Department 10/22/17 4:10 PM NURSE CIGARETTE PAPER TESTER [facility] During your visit today, we recorded the following information about you: Blood pressure 124/87 Turner Kumar MD 10/27/2017 12:51 PM Signed Patient here for a Bp check d/t headache, swelling of face/feet. TruBP used and BP average is 124/87. Patient did have one reading of 126/93. Patient presented for unscheduled BP check. She gets care in [place]. Patient advised to go to either [facility] or [place] [facility] for further evaluation for possible preeclampsia. MD Sbarina Sanchez ELECTRICAL CONSTRUCTION PROJECT MANAGER 10/22/2017 4:58 PM Signed Patient's BPs reviewed with Dr. Kumar and patient was instructed to contact Yun Velasquez's office. Referring Provider: SELF [[id number]] Allergies As of Date: 10/22/2017 Noted Allergy Reaction AMOXICILLIN 04/03/2005 2 - Rash Date Reviewed: 10/18/2017 Reviewed by: Kandi (Rn) HEATH Rojas - Fully Assessed Reason for Visit: [...] 10/27/17 PROGRESS Observed: 10/19/2017 Status: COMPLETED Source: [place] 9:32 AM [facility] MAIN CAMPUS REPOSITORY HNO ID: [id number] Author: Tessa Lord) KENIA Velasquez Service: (none) Author Type: Aircraft Dispatcher Type: Progress Notes Filed: 10/19/2017 9:32 AM [...] APRN.CNM PROGRESS Observed: 10/19/2017 Status: COMPLETED Source: [place] 12:42 AM [facility] OTHER CAMPUS REPOSITORY HNO ID: [id number] Author: Sonja Lord) KENIA Vee Service: Obstetrics Author Type: Aircraft Dispatcher Type: Progress Notes Filed: 10/19/2017 12:48 AM [...] AM PROCEDURE Observed: 10/19/2017 Status: COMPLETED Source: [place] 12:09 AM [facility] REPOSITORY O ID: [id number] Author: Kandi (Rn) HEATH Rojas Service: Obstetrics Author Type: Registered Nurse [...] NURSE: Start Time: 2314 (10/18/172344 : Kandi Rojas RN) Complete Time: 2344 (10/18/172344 : Kandi Rojas RN) Indications: Gestational HTN (10/18/172344 : Kandi Rojas RN) Patient Reason For: NST Explanation: Procedure Explained;Monitor Explained;Verbalizes Understanding (10/18/172344 : Kandi Rojas RN) Acoustic Stimulator: No (10/18/172344 : Kandi Rojas RN) Interventions: MONITORING/ASSESSMENT: Baseline: 125 bpm (10/18/172344 [...] AM CNCO Observed: 10/19/2017 Status: COMPLETED Source: [place] 12:00 AM [facility] REPOSITORY Letter Text [employer] [facility] [place] Sonja Vee APRN.CNM [address] [id number] October 19, 2017 To whom it may concern, Juanita Roberts was seen at [facility] last night and early this morning due to related illness. She is to reduce her work hours to no more than 3 days per week until the end of . Please excuse her absence from work today as she was just discharged from the hospital. Thank you very much. Sincerely, Sonja Vee APRN.CNM Letter Text [employer] [facility] [place] Sonja Vee APRN.CNM [address] [id number] October 19, 2017 To whom it may concern, Juanita Roberts was seen at [facility] today. She is having illness related to and should be off work until delivery. Please excuse her absence from work starting on 10/19/2017. Sincerely, Sonja Vee APRN.CNM Letter Text [employer] [facility] [place] Sonja Vee APRN.CNM [address] [phone] October 19, 2017 To whom it may concern, Mr. Galdino Roberts was at [facility] today due to his 's related illness. . Please excuse his absence from work todayl. Sincerely, Sonja Vee APRN.CNM CBC Collected: 10/18/2017 Status: F Source: [place] 11:10 PM CLINIC OTHER CAMPUS REPOSITORY TYPE CODE [...] 9.6 Performed By: #### CBC, URIC #### [place] [address] URIC ACID Collected: 10/18/2017 Status: F Source: [place] 11:10 PM [facility] OTHER [place] REPOSITORY TYPE CODE TESTS RESULT OUT OF RANGE REFERENCE UNITS LAB URIC 2.0-7.0 mg/dL Uric Acid 4.8 Performed By: #### CBC, URIC #### [place] [address] PRE DELIVERY T+S Collected: 10/18/2017 Status: F Source: [place] 11:10 PM [facility] REPOSITORY TYPE CODE TESTS RESULT OUT OF REFERENCE UNITS RANGE LAB %ABR A ABO/RH(D) POSITIVE LAB % Antibody NEG Screen Performed By: #### PREDEL #### [place] [address] COMP METABOLIC PANEL Collected: 10/18/2017 Status: F Source: [place] 11:10 PM [facility] REPOSITORY TYPE CODE TESTS RESULT OUT [...] Races >60 Performed By: #### CMP #### [place] [address] PROTEIN/CREATININE RATIO Collected: Status: F Source: [place] 10/18/2017 11:05 PM [facility] OTHER CAMPUS REPOSITORY TYPE CODE TESTS RESULT OUT OF REFERENCE UNITS RANGE LAB UTPR 0-20 mg/dL <4 Protein Urine Random LAB UCRR 20-300 mg/dL 13.7 Low Creatinine,Ur ine,Ran LAB PCRAT <0.2 Unable to Protein/Creat calculate because inine Ratio one or more components used in calculation is outside assay range. Performed By: #### PRATIO #### [place] [address] GROUP B STREP PCR Collected: 10/12/2017 Status: F Source: [place] 4:15 PM [facility] REPOSITORY TYPE CODE TESTS RESULT OUT OF REFERENCE UNITS RANGE LAB GBPCRT Negative for GROUP Group B B STREP PCR Streptococcus by PCR. Performed By: #### GBPCR #### [facility] [address], [place] [id number] CBC Collected: 10/09/2017 Status: F Source: [place] 10:01 AM [facility] REPOSITORY TYPE CODE TESTS RESULT OUT OF [...] nRBC <0.01 Performed By: #### CBC #### [facility] [address] [place], [place] [address] 50G, 1HR GEST. Collected: 10/09/2017 Status: F Source: [place] GSCN 10:00 AM [facility] REPOSITORY TYPE CODE TESTS RESULT OUT OF REFERENCE UNITS RANGE LAB GLUP 74-134 mg/dL Glucose 95 Screen, Preg Result Comment: [place] [employer] (Mathur/Simon) guidelines state a gestational diabetes mellitus positive screen is made, in women not previously diagnosed with overt diabetes, when the 1 hr plasma glucose level is equal to or above 140 mg/dL. [facility] [employer] Techn[employer] [facility] [place] recommends a 135 mg/dL cutoff. Performed By: #### GLTGST #### [facility] [address] [address] CNCO Observed: 09/01/2017 Status: COMPLETED Source: [place] 12:00 AM [facility] REPOSITORY Letter Text Juanita Roberts [facility] Tessa Velasquez CNM [address] [place] [address] Juanita Roberts [address] [address] September 01, 2017 Dear Juanita Roberts: Due [...] to see you. Please call us at [phone] to reschedule your appointment. When calling back, please inform the jig grinder set up operator that you received a letter regarding an appointment that needed to be rescheduled. Thank you. Sincerely, Appointment Staff PROGRESS Observed: 08/31/2017 Status: COMPLETED Source: [place] 5:04 PM [facility] REPOSITORY HNO ID: [id number] Author: Tessa Velasquez Service: (none) Author Type: Aircraft Dispatcher Type: Progress Notes Filed: 08/31/2017 5:09 PM Note Text: S: Juanita Roberts presents for a routine OB visit at 29w4d. She denies LOF, VB, DFM or cramping/contractions. She does note that she had about 12 hours of menstrual like cramps on Wednesday. She states that she talked to her instrumentation technologist about it. She was encouraged to call [...] Velasquez CNM Observed: 08/31/2017 Status: F Source: [place] URINE CULTURE 12:15 PM [facility] REPOSITORY Sp. Request/Comment: - Specimen received in preservative Culture Result - 10,000 - <50,000 CFU/ml Normal urogenital alley Performed By: #### URCUL #### [facility] [address] [address] [facility] Observed: 08/31/2017 Status: COMPLETED Source: [place] 10:45 AM [facility] REPOSITORY Routine Office Visit (OBGYBR) JUANITA ROBERTS ([id number]) 1995 F [facility] Date Time Provider Department 08/31/17 10:45 AM TESSA VELASQUEZ (SNEHAL) OBGYBR During your visit today, we recorded the following information about you: Blood pressure Weight Height 100/60 75.8 kg 1.626 m Nolvia Gaines [facility] 08/31/2017 11:28 AM Signed . Movement? Active baby Vaginal Bleeding: NO Vaginal fluid leakage of fluid: NO Contractions: [place] type Tessa Velasquez CNM 08/31/2017 5:09 PM Signed S: Juanita Roberts presents for a routine OB visit at 29w4d. She denies LOF, VB, DFM or cramping/contractions. She does note that she had about 12 hours of ANDquot;menstrual like crampsANDquot; on Wednesday. She states that she talked ANDquot;to her instrumentation technologist about it.ANDquot; She was encouraged to call [...] cramping. - URINE CULTURE Tessa Velasquez CNM Referring Provider: TESSA VELASQUEZ (TRACEY) [[id number]] Allergies As of Date: 08/31/2017 Noted Allergy Reaction AMOXICILLIN 04/03/2005 2 - Rash Date Reviewed: 08/31/2017 Reviewed by: Nolvia Campo - Fully Assessed Reason for Visit: Care [86] Primary Visit Diagnosis:Encounter for supervision of normal first in third trimester [Z34.03] Other Visit Diagnosis:Cramping affecting , antepartum [O26.899, R10.9] Order(s):URINE OB DIP B/O [[id number]] Order #: [id number] GEST GLUC SCREEN, 1-HR, 50 GM, NON-FASTING [SQGLTGST] Order #: [id number] FUTURE CBC [SQCBC] Order #: [id number] FUTURE URINE CULTURE [SQURCUL] Order #: [id number] Prescriptions as of 08/31/2017 Sig: PRENATA ORAL [...] s*INVALID FOR*08/31/2017 More... Visit Notes: >> Nolvia Campo Brooke Aug 31, 2017 11:17 AM Status: Signed . Movement? Active baby Vaginal Bleeding: NO Vaginal fluid leakage of fluid: NO Contractions: [place] type Disposition: Return in about 2 weeks (around 09/14/2017), or if symptoms worsen or fail to improve, for OB visit. Follow-up and Disposition History Recorded Encounter Status:Closed by TESSA VELASQUEZ CNM on 08/31/17 ALLERGIES ALLERGIES DATE TYPE / CODE NAME / CODE REACTION SEVERITY SOURCE 08/03/2018 Drug amoxicillin/A53012 Rash MD [place] Allergy/416 1905(RXNORM) Community 860669([facility] ED CT) Repository 04/03/[address] [facility] INGREDI/419 Other [place] 940591([facility] ED CT) ENCOUNTERS ENCOUNTERS ADMIT/DISCHARGE ACCOUNT NUMBER ADMITTING ENCOUNTER LOCATION SOURCE CLASS 08/19/2018 [id number] Ambulatory [place] [facility] ding:OPUS Repository 08/03/2018/08/03/19 [id number] Ambulatory BMSBuilding: [place] 19 BMS.[facility] Repository 08/02/2018 [id number] Ambulatory BMSBuilding: [place] BMS.CF.[facility] Repository 07/30/2018/07/30/20 [id number] Ambulatory [address] ding:WPOUTRo Repository om: WP012 06/29/2018 [id number] [facility] ding:LABSPEC Repository 06/29/2018/06/29/20 [id number] Ambulatory BMSBuilding: [place] 18 BMS.[facility] Repository 06/07/2018 [id number] [facility]ulatory [facility] ding:LABSPEC Repository 06/07/2018/06/07/20 [id number] Ambulatory BMSBuilding: [place] 18 BMS.[facility] Repository 06/01/2018 [id number] [facility]ulatory [facility] ding:US Repository 05/23/2018 [id number] [facility]ulatory [facility] ding:LAB Repository 12/08/2017/12/11/19 [id number] Ambulatory [address] Main [place] Repository 10/24/2017/10/27/19 [id number] Inpatient [address] Other [place] Repository 10/22/2017/10/23/19 [id number] Ambulatory [address] [place] Repository 10/18/2017/10/20/19 [id number] Ambulatory [address] Other [place] Repository 10/12/2017/10/20/19 [id number] Ambulatory [address] [place] Repository 10/09/2017/12/16/19 [id number] Ambulatory [address] [place] Repository 09/25/2017 [id number] TESSA VELASQUEZ Ambulatory [facility] Other [place] Repository 08/31/2017/09/02/19 [id number] Ambulatory [address] Repository PAYERS PAYERS ENCOUNTER GUARANTOR PAYER SUBSCRIBER SOURCE 08/19/2018 JUANITA WHITEOB: [place] [address] [place] Number: [facility] [address]Bvq: (751) [id number] Repository [phone] () Date:9524-33-08IJ [address], [place] [address]KT: 08/19/2018 Secondary NOT GIVENUNK [place] Insurance:SELF PAY [facility] Number: Effective Repository Date:2018-08-09 08/03/2018 JUANITA R Primary GALDINO R CHINNDOB: [place] [address] Insurance:CIGNAPolicy [id number] Number: [facility] [id number]: (330) [id number] Repository [phone] () Date:2418-53-79FB [address]GIIFZIZXX, [place] [address]WP: 08/03/2018 Secondary NOT GIVENUNK [place] Insurance:SELF PAY [facility] Number: Effective Repository Date:2018-08-03 08/02/2018 JUANITA R Primary NOT GIVENUNK [place] [address] Insurance:SELF PAY [facility] [id number]: (330) Number: Effective Repository [phone] () Date:2018-08-02 07/30/2018 JUANITA R Primary GALDINO R CHINNDOB: [place] [address] Insurance:CIGNAPolicy [id number] Number: [facility] [address]Vsn: (330) [id number] Repository [phone] () Date:2056-16-31ZN [address]BRZ[address], [place] [address]ZJ: 07/30/2018 Secondary NOT GIVENUNK [place] Insurance:SELF PAY [facility] Number: Effective Repository Date:2018-07-30 06/29/2018 JUANITA R Primary GALDION R CHINNDOB: [place] [address] Insurance:CIGNAPolicy [id number] Number: [facility] [address]Ikb: (330) [id number] Repository [phone] () Date:0523-98-39YX [address]DWPWSAGZFP, [place] [address]OJ: 06/29/2018 Secondary NOT GIVENUNK [place] Insurance:SELF PAY [facility] Number: Effective Repository Date:2018-06-29 06/29/2018 JUANITA R Primary GALDINO R CHINNDOB: [place] [address] Insurance:CIGNAPolicy [id number] Community [place] Number: [facility] [id number]: (330 [id number] Repository [phone] () Date:8638-13-32XU [address] [address]UN: 06/29/2018 Secondary NOT GIVENUNK [place] Insurance:SELF PAY [facility] Number: Effective Repository Date:2018-06-29 06/07/2018 JUANITA R Primary GALDINO R CHINNDOB: [place] [address] Insurance:CIGNAPolicy [id number] [place] Number[facility] Hospital [address]Fkh: (330 [id number] Repository [phone] () Date:2026-10-40HM [address] [address]YN: 06/07/2018 Secondary NOT GIVENUNK [place] Insurance:SELF PAY [facility] Number: Effective Repository Date:2018-06-07 06/07/2018 JUANITA R Primary GALDINO R CHINNDOB: [place] [address] Insurance:CIGNAPolicy [id number] [place] Number[place] Hospital [address]Ckm: (330 [id number] Repository [phone] () Date:5623-59-33[address] [address]RG: 06/07/2018 Secondary NOT GIVENUNK [place] Insurance:SELF PAY [facility] Number: Effective Repository Date:2018-06-07 06/01/2018 JUANITA R Primary GALDINO R CHINNDOB: [place] [address] Insurance:CIGNAPolicy [id number] [facility] [place] Number: Hospital [address]Pgj: (330) [id number] Repository [phone] () Date:7620-34-31MW [address] [address]QY: 06/01/2018 Secondary NOT GIVENUNK [place] Insurance:SELF PAY [facility] Number: Effective Repository Date:2018-05-25 05/23/2018 JUANITA R Primary GALDINO R CHINNDOB: [place] [address] Insurance:CIGNAPolicy [id number] Number: [facility] [id number]: (425) [id number] Repository [phone] () Date:8096-75-79JB [address]BLERJTMRGBG, [place] [address]CZ: 05/23/2018 Secondary NOT GIVENUNK [place] Insurance:SELF PAY [facility] Number: Effective Repository Date:2018-05-23
== END ==
PROVIDERS: Referring Provider Obstetrics & Gynecology; Visit Provider Obstetrics & Gynecology
DX: Z34.92 Encounter for supervision of normal pregnancy, unspecified, second trimester (principal); Z3A.19 19 weeks gestation of pregnancy
CPT/HCPCS: 76805

== ENCOUNTER → 2018-09-21 14:58 | Outpatient (CLI) | payer OTHER, SELFPAY ==
[2018-08-03 09:23] VITALS: BMI 26.4
[2018-09-21 16:13] LABS: Absolute Lymphocyte Count 1.75 X10^3/ul (0.83-4.51); Basophil# 0.02 X10^3/uL; Basophil% 0.3 % (0-1); Eosinophil# 0.07 X10^3/uL; Eosinophils% 0.9 % (0-5); Hematocrit 39.5 % (37-47); Hemoglobin 13.3 g/dl (12.0-15.0); Lymphocyte # 1.75 X10^3/ul (4.0); Lymphocyte % 23.3 % (19-41); Mean Corp Hgb Conc 33.7 g/gl (32-36); Mean Corpuscular Hgb 32.6 pg (27.0-32.0); Mean Corpuscular Volume 96.8 fL (81-99); Monocyte# 0.65 X10^3/uL; Monocyte% 8.6 % (0-10); Neutrophil # 5.01 X10^3/uL (2.7-7.7); Neutrophil % 66.6 % (47-70); Platelet Count 261 K/mm3 (150-450); RBC Distribution Width CV 12.3 % (11.6-14.6); RBC Distribution Width SD 42.3 fl (35.1-43.9); Red Blood Count 4.08 M/mm3 (4.2-5.4); White Blood Count 7.5 K/mm3 (4.4-11.0)
[2018-09-21 16:21] LABS: POSITIVE COUNT NO; POSITIVE DIFFERENTIAL NO; POSITIVE MORPHOLOGY NO
[2018-09-21 17:18] LABS: HIV - WCH Non-Reactive (Nonreactive)
[2018-09-23 00:50] LABS: Rapid Plasmin Reagin (RPR) NONREACTIVE (NONREACTIVE)
[2018-09-23 11:33] LABS: HEPATITIS B SURFACE AG Negative (Negative)
== END ==
PROVIDERS: Referring Provider Obstetrics & Gynecology; Visit Provider Obstetrics & Gynecology
DX: Z34.90 Encounter for supervision of normal pregnancy, unspecified, unspecified trimester (principal)
CPT/HCPCS: 36415; 85025; 86592; 86703; 86762; 86850; 86900; 87340

== ENCOUNTER 2018-10-14 16:20 | Outpatient (CLI) | payer OTHER, SELFPAY ==
[2018-10-14 14:34] VITALS: BMI 26.4
[2018-10-14 16:12] LABS: Absolute Lymphocyte Count 1.92 X10^3/ul (0.83-4.51); Absolute Neutrophil Count 7.3 X10^3/uL (2.0-7.7); Basophil# 0.02 X10^3/uL; Basophil% 0.2 % (0-1); Eosinophil# 0.11 X10^3/uL; Eosinophils% 1.1 % (0-5); Hematocrit 38.1 % (37-47); Hemoglobin 12.6 g/dl (12.0-15.0); Lymphocyte # 1.92 X10^3/ul (4.0); Mean Corp Hgb Conc 33.1 g/gl (32-36); Mean Corpuscular Hgb 31.8 pg (27.0-32.0); Mean Corpuscular Volume 96.2 fL (81-99); Monocyte# 0.69 X10^3/uL; Monocyte% 6.8 % (0-10); Neutrophil % 72.4 % (47-70); Platelet Count 243 K/mm3 (150-450); RBC Distribution Width CV 12.1 % (11.6-14.6); RBC Distribution Width SD 41.7 fl (35.1-43.9); Red Blood Count 3.96 M/mm3 (4.2-5.4); White Blood Count 10.1 K/mm3 (4.4-11.0)
[2018-10-14 16:15] LABS: POSITIVE COUNT NO; POSITIVE DIFFERENTIAL NO; POSITIVE MORPHOLOGY NO
[2018-10-14 16:36] LABS: Glucose Challenge Gest 1H 50g 77 mg/dL (70-140)
[2018-10-14 16:53] VITALS: BMI 29.1
--- NOTE | 2018-10-15 23:47 | OB.TRI.HP_ITS ---
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0 (19-41) % [place] % (Auto) 6.8 (0-10) % Eos % (Auto) 1.1 (0-5) % Baso % (Auto) 0.2 (0-1) % Absolute Neuts (auto) 7.3 (2.0-7.7) X10^3/uL Absolute Lymphs (auto) 1.92 (0.83-4.51) X10^3/ul Total Counted Not Reportable Glucose 1 Hr 50 gm 77 (70-140) mg/dL Blood Type A POSITIVE Antibody Screen NEGATIVE NST - FHR Rate Baby A Baseline: 140 Variability:: Moderate Accelerations:: 10 x 10 Decelerations:: None NST Reactive:: Yes FHR Category:: Category I Uterine Activity:: no regular Impression/Plan decreased movememnt reactive nst dc home
== END 2018-10-14 17:20 | disposition home or self-care (01) ==
LOC: LAB 16:27 → WPOUT 16:27 → WP 16:28
PROVIDERS: Nurse Practitioner Women's Health; Referring Provider Obstetrics & Gynecology; Visit Provider Obstetrics & Gynecology
DX: O36.8190 Decreased fetal movements, unspecified trimester, not applicable or unspecified (principal); Z3A.00 Weeks of gestation of pregnancy not specified; Z88.0 Allergy status to penicillin
CPT/HCPCS: 36415; 59050; 82950; 85025; 86850; 86900; 99218; G0378

== ENCOUNTER 2018-10-27 13:53 | Outpatient (CLI) | payer OTHER, SELFPAY ==
--- NOTE | 2018-10-27 13:57 | US_ITS ---
STUDY: RENAL ULTRASOUND - COMPLETE REASON FOR EXAM: Female, 23 years old. Right flank pain. The patient is 30 weeks . TECHNIQUE: Ultrasound evaluation of the kidneys was performed with real-time and static molina-scale imaging. COMPARISON: None. FINDINGS: RIGHT KIDNEY: Normal location of the right kidney, which is normal in size. The right kidney measures 11.7 cm x 5.9 cm x 6.5 cm. There is a normal cortex of the right kidney. The renal cortex measures 1.8 cm. There is no right renal mass or cyst. There are no right renal calculi. There is moderate hydronephrosis of the right kidney. DISTAL RIGHT URETER: There is non-visualization of the distal right ureter. There is no demonstrated right ureterovesical junction calculus. There is no demonstrated right ureteral jet. LEFT KIDNEY: Normal location of the left kidney, which is normal in size. The left kidney measures 12.5 cm x 5.5 cm x 6.8 cm. There is a normal cortex of the left kidney. The renal cortex measures 1.9 cm. There is no left renal mass or cyst. There are no left renal calculi. There is no left hydronephrosis. DISTAL LEFT URETER: There is non-visualization of the distal left ureter. There is no demonstrated left ureterovesical junction calculus. There is no demonstrated left ureteral jet. BLADDER: The distended urinary bladder has a volume of 45 ml. There is a normal wall thickness of the distended urinary bladder. There is no demonstrated mass within the urinary bladder. There are no demonstrated bladder calculi. US/Kidney and Bladder IMPRESSION: Moderate degree of right hydronephrosis. Electronically Signed: Geovanny Collado, at 15:28 EDT , Service support ,
[2018-10-27 14:47] LABS: Absolute Neutrophil Count 9.1 X10^3/uL (2.0-7.7); Basophil# 0.01 X10^3/uL; Basophil% 0.1 % (0-1); Eosinophil# 0.09 X10^3/uL; Eosinophils% 0.8 % (0-5); Hematocrit 38.9 % (37-47); Lymphocyte % 15.3 % (19-41); Mean Corp Hgb Conc 33.4 g/gl (32-36); Mean Corpuscular Hgb 31.6 pg (27.0-32.0); Mean Corpuscular Volume 94.6 fL (81-99); Mean Platelet Vol. 9.3 fl (6.2-12.0); Monocyte# 0.81 X10^3/uL; Monocyte% 6.9 % (0-10); Neutrophil # 9.05 X10^3/uL (2.7-7.7); Neutrophil % 76.6 % (47-70); Platelet Count 245 K/mm3 (150-450); RBC Distribution Width CV 12.4 % (11.6-14.6); RBC Distribution Width SD 42.3 fl (35.1-43.9); Red Blood Count 4.11 M/mm3 (4.2-5.4); White Blood Count 11.8 K/mm3 (4.4-11.0)
[2018-10-27 14:52] LABS: POSITIVE COUNT NO; POSITIVE DIFFERENTIAL NO; POSITIVE MORPHOLOGY NO
[2018-10-27 15:43] VITALS: BMI 28.8
--- NOTE | 2018-10-27 15:45 | US_ITS ---
STUDY: SECOND AND THIRD TRIMESTER OBSTETRICAL ULTRASOUND - LIMITED REASON FOR EXAM: Female, 23 years old. Evaluate growth and fluid. LMP: Unknown. PRIOR ULTRASOUND: August 19, 2018. TECHNIQUE: Transabdominal TECHNICAL QUALITY: Adequate. FINDINGS: There is a single intrauterine fetus. The fetus is in a cephalic presentation. There is demonstrated cardiac activity with a heart rate of 130 bpm. There is a normal amniotic fluid volume. The largest amniotic fluid pocket measures 4.2 cm. The amniotic fluid index (SUSHNAT) is 12.9 cm. The placenta is anterior in location and is not low lying. There are Grade 1 placental changes. The cervix measures 3.0 cm in length. BIOMETRY: BPD: 7.3 cm: 29 weeks, 2 days HC: 28.0 cm: 30 weeks, 5 days AC: 25.6 cm: 29 weeks, 6 days FL: 5.4 cm: 28 weeks, 5 days age by prior US: 29 weeks, 6 days. ANATOLIY by prior US: January 06, 2019. age by current US: 29 weeks, 5 days. ANATOLIY by current US: January 07, 2019. Estimated weight: 1399 grams, +/- 204 grams, 25 percentile. US/OB Limited With Biometrics IMPRESSION: Single intrauterine gestation 29 weeks 5 days with ANATOLIY January 07, 2019. Estimated weight 1399 g. Electronically Signed: Michael Freed MD at 17:40 EDT , Service support ,
[2018-10-27] MEDS: Acetaminophen 500 MG Tablet PO (16:55)
--- NOTE | 2018-11-02 06:51 | OB.TRI.PN ---
Progress Notes Date of Service: 10/27/18 Progress Note: Patient presented with severe right flank pain. Patient was seen in the office and then sent down for monitoring because there was also an episode of 5-10 seconds of decreased heart rate in the 100s. After extended monitoring and ultrasound and right renal evaluation the clinical suspicion for stone was still high but no visualized stone was seen on imaging. testing was reassuring. Patient felt better after pain medication and oral fluids. heart tones 120s moderate variability reactive no decelerations [place]: Irregular contractions Assessment and plan 23-year-old with right flank suspect kidney stone sent urine for culture, pain medication and oral fluids recommended. Continue kick counts Laboratory Studies: Laboratory Tests 10/27/18 Range/Units 13:58 WBC 11.8 H (4.4-11.0) K/mm3 RBC 4.11 L (4.2-5.4) M/mm3 Hgb 13.0 (12.0-15.0) g/dl Hct 38.9 (37-47) % MCV 94.6 (81-99) fL MCH 31.6 (27.0-32.0) pg MCHC 33.4 (32-36) g/gl RDW 12.4 (11.6-14.6) % RDW Differential 42.3 (35.1-43.9) fl Plt Count 245 (150-450) K/mm3 MPV 9.3 (6.2-12.0) fl Immature Gran % (Auto) 0.300 (0.0-0.9) % Neut % (Auto) 76.6 H (47-70) % Lymph % (Auto) 15.3 L (19-41) % Benson % (Auto) 6.9 (0-10) % Eos % (Auto) 0.8 (0-5) % Baso % (Auto) 0.1 (0-1) % Absolute Neuts (auto) 9.1 H (2.0-7.7) X10^3/uL Absolute Lymphs (auto) 1.80 (0.83-4.51) X10^3/ul Total Counted Not Reportable
== END 2018-10-27 17:25 | disposition home or self-care (01) ==
LOC: OPUS 14:09 → WPOUT 15:14 → OBT 15:15
PROVIDERS: Nurse Practitioner Women's Health; Referring Provider Obstetrics & Gynecology; Visit Provider Obstetrics & Gynecology
DX: O23.40 Unspecified infection of urinary tract in pregnancy, unspecified trimester (principal); Z3A.00 Weeks of gestation of pregnancy not specified
CPT/HCPCS: 36415; 59025; 59050; 76770; 76816; 85025; 87077; 87086; 87088; 87186; 99218; G0378

== ENCOUNTER → 2018-11-15 18:02 | Outpatient (CLI) | payer OTHER, SELFPAY ==
[2018-11-15 11:43] VITALS: BMI 28.8
== END ==
PROVIDERS: Visit Provider Nurse Practitioner Women's Health
DX: R30.0 Dysuria (principal)
CPT/HCPCS: 87077; 87086; 87088; 87186

== ENCOUNTER → 2018-12-08 18:16 | Outpatient (CLI) | payer OTHER, SELFPAY ==
[2018-12-08 16:38] VITALS: BMI 28.8
== END ==
PROVIDERS: Visit Provider Obstetrics & Gynecology
DX: Z34.82 Encounter for supervision of other normal pregnancy, second trimester (principal)

== ENCOUNTER → 2018-12-15 16:55 | Outpatient (CLI) | payer OTHER, SELFPAY ==
[2018-12-15 16:05] VITALS: BMI 28.8
== END ==
PROVIDERS: Visit Provider Obstetrics & Gynecology
DX: Z3A.36 36 weeks gestation of pregnancy (principal)
CPT/HCPCS: 87081

== ENCOUNTER 2019-01-05 22:18 | Outpatient (CLI) | payer OTHER, SELFPAY ==
[2019-01-05 16:28] VITALS: BMI 28.8
[2019-01-05 23:17] VITALS: BMI 31.6
[2019-01-05 23:44] LABS: Hematocrit 32.8 % (37-47); Hemoglobin 11.2 g/dl (12.0-15.0); Mean Corp Hgb Conc 34.1 g/gl (32-36); Mean Corpuscular Hgb 30.9 pg (27.0-32.0); Mean Corpuscular Volume 90.4 fL (81-99); Mean Platelet Vol. 9.2 fl (6.2-12.0); Platelet Count 215 K/mm3 (150-450); RBC Distribution Width CV 13.6 % (11.6-14.6); RBC Distribution Width SD 43.9 fl (35.1-43.9); Red Blood Count 3.63 M/mm3 (4.2-5.4); White Blood Count 7.6 K/mm3 (4.4-11.0)
[2019-01-05 23:46] LABS: Scan Indicated on CBC? Y/N NO
[2019-01-05 23:54] LABS: Prothrombin Time (Protime)PT. 12.9 SECONDS (11.7-14.9)
[2019-01-05 23:55] LABS: Partial Thromboplast Time 27.4 Seconds (24.1-36.2)
[2019-01-05 23:57] LABS: AST(SGOT) 15 U/L (15-37); Alanine Aminotransfer ALT/SGPT 14 U/L (13-56); Creatinine, Serum 0.71 mg/dL (0.55-1.02); EST Glomerular Filtration Rate 107 mL/min (>60); Est Glom Filt Rate - Afr Amer 129 mL/min (>60); Estimated Creatinine Clearance 105.51 ml/min; Uric Acid 4.6 mg/dL (2.6-6.0)
[2019-01-06 00:03] LABS: Protein, Urine (Random) 12.7 mg/dL (<11.9); Protein:Creat Ratio 96 mg/g CRE (0-200)
--- NOTE | 2019-01-08 15:22 | OB.TRI.PN_ITS ---
Progress Notes Date of Service: 01/05/19 Progress Note: Patient presented with intermittent headache and aura-like symptoms with hazy appearance to vision at times. Patient has a history of migraines with ocular symptoms and aura this feels similar but she wanted evaluated. heart tones 130 moderate variability reactive no decelerations category 1 tracing [place]: No regular contractions Assessment and plan patient presents with headache normal preeclampsia labs negative protein in the urine. Diagnosis migraine normal blood pressures reviewed preeclampsia precautions with patient Laboratory Studies: Laboratory Tests 01/05/19 01/05/19 01/05/19 Range/Units 23:35 23:35 23:35 WBC (4.4-11.0) K/mm3 RBC (4.2-5.4) M/mm3 Hgb (12.0-15.0) g/dl Hct (37-47) % MCV (81-99) fL MCH (27.0-32.0) pg MCHC (32-36) g/gl RDW (11.6-14.6) % RDW Differential (35.1-43.9) fl Plt Count (150-450) K/mm3 MPV (6.2-12.0) fl PT 12.9 (11.7-14.9) SECONDS INR 1.0 APTT 27.4 (24.1-36.2) Seconds Creatinine 0.71 (0.55-1.02) mg/dL Estim Creat Clear Calc 105.51 ml/min Est GFR (MDRD) Af Amer 129 (>60) mL/min Est GFR (MDRD) Non-Af 107 (>60) mL/min Uric Acid 4.6 (2.6-6.0) mg/dL AST 15 (15-37) U/L ALT 14 (13-56) U/L U Random Total Protein 12.7 H (<11.9) mg/dL Urine Creatinine 132.00 (NO RANGE EST.) mg/dL Protein/Creatinin Ratio 96 (0-200) mg/g CRE 01/05/19 Range/Units 23:35 WBC 7.6 (4.4-11.0) K/mm3 RBC 3.63 L (4.2-5.4) M/mm3 Hgb 11.2 L (12.0-15.0) g/dl Hct 32.8 L (37-47) % MCV 90.4 (81-99) fL MCH 30.9 (27.0-32.0) pg MCHC 34.1 (32-36) g/gl RDW 13.6 (11.6-14.6) % RDW Differential 43.9 (35.1-43.9) fl Plt Count 215 (150-450) K/mm3 MPV 9.2 (6.2-12.0) fl PT (11.7-14.9) SECONDS INR APTT (24.1-36.2) Seconds Creatinine (0.55-1.02) mg/dL Estim Creat Clear Calc ml/min Est GFR (MDRD) Af Amer (>60) mL/min Est GFR (MDRD) Non-Af (>60) mL/min Uric Acid (2.6-6.0) mg/dL AST (15-37) U/L ALT (13-56) U/L U Random Total Protein (<11.9) mg/dL Urine Creatinine (NO RANGE EST.) mg/dL Protein/Creatinin Ratio (0-200) mg/g CRE
== END 2019-01-06 00:37 | disposition home or self-care (01) ==
LOC: WPOUT 23:13 → WP 23:15
PROVIDERS: Referring Provider Obstetrics & Gynecology; Visit Provider Obstetrics & Gynecology
DX: O26.899 Other specified pregnancy related conditions, unspecified trimester (principal); G43.909 Migraine, unspecified, not intractable, without status migrainosus; Z3A.00 Weeks of gestation of pregnancy not specified
CPT/HCPCS: 36415; 59025; 59050; 82565; 82570; 84156; 84450; 84460; 84550; 85027; 85610; 85730; 99218; G0378

== ENCOUNTER 2019-01-06 15:50 | Outpatient (CLI) | payer OTHER, SELFPAY ==
[2019-01-05 23:17] VITALS: BMI 31.6
[2019-01-06] MEDS: Lactated Ringers 1,000 ML 125 ML IV (16:10)
[2019-01-06 16:36] VITALS: BMI 31.3
[2019-01-06 16:45] LABS: Protein, Urine (Random) 9.1 mg/dL (<11.9); Protein:Creat Ratio 276 mg/g CRE (0-200)
[2019-01-06 16:52] LABS: Hematocrit 36.5 % (37-47); Mean Corp Hgb Conc 32.9 g/gl (32-36); Mean Corpuscular Hgb 29.6 pg (27.0-32.0); Mean Corpuscular Volume 89.9 fL (81-99); Mean Platelet Vol. 9.4 fl (6.2-12.0); Platelet Count 226 K/mm3 (150-450); RBC Distribution Width CV 13.9 % (11.6-14.6); RBC Distribution Width SD 45.2 fl (35.1-43.9); Red Blood Count 4.06 M/mm3 (4.2-5.4); White Blood Count 7.7 K/mm3 (4.4-11.0)
[2019-01-06 16:53] LABS: AST(SGOT) 21 U/L (15-37); Alanine Aminotransfer ALT/SGPT 15 U/L (13-56); Creatinine, Serum 0.51 mg/dL (0.55-1.02); EST Glomerular Filtration Rate 156 mL/min (>60); Est Glom Filt Rate - Afr Amer 188 mL/min (>60); Estimated Creatinine Clearance 146.88 ml/min; Uric Acid 4.2 mg/dL (2.6-6.0)
[2019-01-06 16:55] LABS: Scan Indicated on CBC? Y/N NO
[2019-01-06 17:02] LABS: Prothrombin Time (Protime)PT. 12.6 SECONDS (11.7-14.9)
[2019-01-06 17:03] LABS: Partial Thromboplast Time 25.1 Seconds (24.1-36.2)
--- NOTE | 2019-01-08 15:24 | OB.TRI.PN_ITS ---
Progress Notes Date of Service: 01/06/19 Progress Note: Patient presents with possible elevated blood pressures in the office and persistent intermittent headache with hazy vision. Patient states that symptoms are no worse than they were yesterday, repeat blood pressures have all been within normal limits and repeat labs are within normal limits. Negative proteinuria. 1 physiologic pedal clonus bilaterally 2+ reflexes heart tones 130 moderate variability reactive no decelerations category 1 tracing [place]: No regular contractions Assessment and plan migraine?plan 24-hour urine collection and home blood pressure monitoring. Reviewed preeclampsia precautions patient comfortable and requesting to go home as opposed to being admitted for observation. Laboratory Studies: Laboratory Tests 01/06/19 01/06/19 01/06/19 Range/Units 16:10 16:10 16:10 WBC (4.4-11.0) K/mm3 RBC (4.2-5.4) M/mm3 Hgb (12.0-15.0) g/dl Hct (37-47) % MCV (81-99) fL MCH (27.0-32.0) pg MCHC (32-36) g/gl RDW (11.6-14.6) % RDW Differential (35.1-43.9) fl Plt Count (150-450) K/mm3 MPV (6.2-12.0) fl PT 12.6 (11.7-14.9) SECONDS INR 1.0 APTT 25.1 (24.1-36.2) Seconds Creatinine 0.51 L (0.55-1.02) mg/dL Estim Creat Clear Calc 146.88 ml/min Est GFR (MDRD) Af Amer 188 (>60) mL/min Est GFR (MDRD) Non-Af 156 (>60) mL/min Uric Acid 4.2 (2.6-6.0) mg/dL AST 21 (15-37) U/L ALT 15 (13-56) U/L U Random Total Protein 9.1 (<11.9) mg/dL Urine Creatinine 33.00 (NO RANGE EST.) mg/dL Protein/Creatinin Ratio 276 H (0-200) mg/g CRE 01/06/19 Range/Units 16:10 WBC 7.7 (4.4-11.0) K/mm3 RBC 4.06 L (4.2-5.4) M/mm3 Hgb 12.0 (12.0-15.0) g/dl Hct 36.5 L (37-47) % MCV 89.9 (81-99) fL MCH 29.6 (27.0-32.0) pg MCHC 32.9 (32-36) g/gl RDW 13.9 (11.6-14.6) % RDW Differential 45.2 H (35.1-43.9) fl Plt Count 226 (150-450) K/mm3 MPV 9.4 (6.2-12.0) fl PT (11.7-14.9) SECONDS INR APTT (24.1-36.2) Seconds Creatinine (0.55-1.02) mg/dL Estim Creat Clear Calc ml/min Est GFR (MDRD) Af Amer (>60) mL/min Est GFR (MDRD) Non-Af (>60) mL/min Uric Acid (2.6-6.0) mg/dL AST (15-37) U/L ALT (13-56) U/L U Random Total Protein (<11.9) mg/dL Urine Creatinine (NO RANGE EST.) mg/dL Protein/Creatinin Ratio (0-200) mg/g CRE
== END 2019-01-06 18:10 | disposition home or self-care (01) ==
LOC: WPOUT 16:00 → OBT 16:02
PROVIDERS: Referring Provider Obstetrics & Gynecology; Visit Provider Obstetrics & Gynecology
DX: O26.893 Other specified pregnancy related conditions, third trimester (principal); R51 Headache; R03.0 Elevated blood-pressure reading, without diagnosis of hypertension; Z3A.00 Weeks of gestation of pregnancy not specified
CPT/HCPCS: 59025; 59050; 82565; 82570; 84156; 84450; 84460; 84550; 85027; 85610; 85730; 99218; J7120; G0378

== ENCOUNTER → 2019-01-07 19:02 | Outpatient (CLI) | payer OTHER, SELFPAY ==
[2019-01-06 16:36] VITALS: BMI 31.3
[2019-01-07 20:56] LABS: 24 Hour Urine Protein 149.5 mg/24HR (<150 MG/24HR); 24HR. UA Prot. Total Volume 2875 mL; Creat.Clear Total Volume 2875 mL; Creatinine Clearance 166 ml/min (100-200); Creatinine Serum Creat 0.5 mg/dL (0.6-1.0); Creatinine Urine 42.5 mg/dL (NO RANGE EST.); EST Glomerular Filtration Rate 156 mL/min (>60); Est Glom Filt Rate - Afr Amer 189 mL/min (>60); Urine Protein (24 Hour) < 6.0 mg/dL (<11.9)
== END ==
PROVIDERS: Referring Provider Obstetrics & Gynecology; Visit Provider Obstetrics & Gynecology
DX: Z34.90 Encounter for supervision of normal pregnancy, unspecified, unspecified trimester (principal)
CPT/HCPCS: 82570; 82575; 84156

== ENCOUNTER 2019-01-10 00:15 | Inpatient (IN) | payer OTHER, SELFPAY ==
[2018-12-22 13:18] VITALS: BMI 28.8
[2019-01-09 10:41] VITALS: BMI 31.3
[2019-01-09 21:02] VITALS: BMI 30.7
[2019-01-10] MEDS: Lactated Ringers 1,000 ML 50 ML IV (02:30)
[2019-01-10 02:48] LABS: Absolute Lymphocyte Count 1.79 X10^3/ul (0.83-4.51); Absolute Neutrophil Count 7.5 X10^3/uL (2.0-7.7); Basophil# 0.01 X10^3/uL; Basophil% 0.1 % (0-1); Eosinophil# 0.17 X10^3/uL; Eosinophils% 1.6 % (0-5); Hematocrit 37.3 % (37-47); Hemoglobin 12.5 g/dl (12.0-15.0); Lymphocyte # 1.79 X10^3/ul (4.0); Lymphocyte % 17.3 % (19-41); Mean Corp Hgb Conc 33.5 g/gl (32-36); Mean Corpuscular Hgb 29.8 pg (27.0-32.0); Mean Corpuscular Volume 88.8 fL (81-99); Mean Platelet Vol. 9.5 fl (6.2-12.0); Monocyte# 0.87 X10^3/uL; Monocyte% 8.4 % (0-10); Neutrophil # 7.47 X10^3/uL (2.7-7.7); Neutrophil % 72.3 % (47-70); Platelet Count 236 K/mm3 (150-450); RBC Distribution Width SD 44.6 fl (35.1-43.9); White Blood Count 10.3 K/mm3 (4.4-11.0)
[2019-01-10 02:49] LABS: POSITIVE COUNT NO; POSITIVE DIFFERENTIAL NO; POSITIVE MORPHOLOGY NO
[2019-01-10] MEDS: Sodium Chloride 0.65% 1 SPRAY SPRAY.BTL 2 SPRAY NASAL (05:01)
[2019-01-10] MEDS: Oxytocin 30 units/NS 500 ml 30 UNITS/500 ML IV.SOLN IV (06:06)
[2019-01-10] MEDS: Oxytocin 30 units/NS 500 ml 30 UNITS/500 ML IV.SOLN 334 UNITS IV (08:50)
[2019-01-10] MEDS: Oxytocin 30 units/NS 500 ml 30 UNITS/500 ML IV.SOLN 167 UNITS IV (09:20)
[2019-01-10] MEDS: Acetaminophen 325 MG Tablet PO (09:22)
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
--- NOTE | 2019-01-10 09:27 | PCM.OPRPT ---
Problem List (1) UTI in Status: Acute Qualifiers: Trimester: third trimester Qualified Code(s): O23.43 - Unspecified infection of urinary tract in , third trimester Comment: x2, recommend daily antibiotic. patient offered keflex daily, not taking. (2) Genital herpes affecting Status: Acute Qualifiers: Trimester: third trimester Qualified Code(s): O98.313 - Other infections with a predominantly sexual mode of transmission complicating , third trimester; A60.09 - Herpesviral infection of other urogenital tract Comment: acyclovir at 36 weeks (3) Status: Acute Qualifiers: Weeks of gestation: 40 weeks Qualified Code(s): Z3A.40 - 40 weeks gestation of Comment: Do not ask in labor if wants epidural. genetic, carrier, ntd screening declined. anatomy scan ordered (4) Supervision of normal IUP (intrauterine ) in multigravida Status: Acute Qualifiers: Trimester: third trimester Qualified Code(s): Z34.83 - Encounter for supervision of other normal , third trimester Comment: PRR ANATOLIY 01/06/19 girl Mindy Granado Galdino Vaginal Delivery Maternal Presentation: Active Labor 23 yo @ 40 weeks presents IAL Amniotic Fluid Description: Clear Final ANATOLIY: 01/06/19 Gestational age: 40 Weeks and 4 Days Date of Procedure: 01/10/19 Pre-Operative Diagnosis: ial Post-Operative Diagnosis: same Surgery/ Procedure Performed: Spontaneous Vaginal Delivery Type of Anesthesia: None Description of Procedure: Patient began pushing and delivered the head in the DEMARCO presentation while on hands and knees.. The head was delivered atraumatically . due to maternal discomfort the patient changed positioning and initially had trouble pushing the rest of the out, but once she maintained the proper position and pushed The anterior and posterior shoulders delivered followed by the rest of the and the was placed on the maternal abdomen. Delayed cord clamping was employed for approximately 60 seconds. Cord was clamped and cut and gentle traction was applied to the cord and the placenta delivered spontaneously immediately following it was noted to be intact with three-vessel cord. The perineum and vagina were inspected and noted to have no laceration. EBL was 300cc. Patient and infant tolerated delivery well. within several hours post delivery she had over 450 cc of additional blood loss with some atony, methergine hemabate and massage were employed and then bleeding was minimal and well controlled. Presentation: DEMARCO Placental Delivery Description: Spontaneous Placenta Disposition: [facility] Cord Vessel Description: 3 Vessels Cord Entanglement: None Estimated Blood Loss: 800 total Infant A gender: Female Episiotomy Description: None Laceration: None Medications given after delivery: IV Pitocin, IM Methergin, IM Hemabate Complications: None
[2019-01-10] MEDS: Ondansetron 4 MG/2 ML Vial IV (10:03)
[2019-01-10] MEDS: oxyCODONE 5 MG Tablet PO (10:09)
[2019-01-10] MEDS: 0.9% Saline Lock 10 ML Syringe IV (11:13)
[2019-01-10] MEDS: HYDROmorphone 1 MG/ML Syringe IV (11:25)
[2019-01-10 14:10] VITALS: BP 102/61; PULSE 88; RESP 16; TEMP 36.8
[2019-01-10 16:45] VITALS: BP 105/56; PULSE 80; RESP 16; TEMP 36.6
[2019-01-10 18:40] VITALS: BP 113/78; PULSE 67; RESP 18; TEMP 37.4
--- NOTE | 2019-01-10 18:40 | NURSING ---
pt calls nurse due to concern about a large amount of blood in toilet. blood amount assessed. pt denies dizziness or weakness at present. pt helped to bed and vital signs obtained. vital signs within normal limit. uterus firm and located at umbilicus. bleeding no longer noted. will continue to monitor
[2019-01-10] MEDS: Naproxen 250 MG Tablet 500 MG PO (18:42)
[2019-01-10] MEDS: Acetaminophen 500 MG Tablet 1000 MG PO (19:50)
[2019-01-10 19:59] VITALS: BP 101/57; PULSE 86; RESP 18; TEMP 37.2
[2019-01-11 01:00] VITALS: BP 87/50; PULSE 71; RESP 16; TEMP 36.6; O2SAT 100
[2019-01-11 04:05] VITALS: BP 92/51; PULSE 79; RESP 18; TEMP 36.7
--- NOTE | 2019-01-11 07:46 | PCM.PN.OB ---
Patient Problems: Active and Suspected Problems (Last Reviewed 01/09/19 @ 10:40 by Mary Peralta) Active labor at term (Acute) Subjective: doing well no complaints pain controlled no CP SOB N V ambulating well tolerating po lochia moderate, going well - Physical Exam General: Alert, Oriented x3 Abdomen: Soft, Non Tender, Non-Distended, - - FF below U Vital Signs Temp Pulse Resp BP Pulse Ox 98.1 F 79 18 92/51 L 100 01/11/19 04:05 01/11/19 04:05 01/11/19 04:05 01/11/19 04:05 01/11/19 01:00 Oxygen Delivery Method Room Air Weight: 179 lb Body Mass Index (BMI) 30.7 Intake and Output for Last 24 Hours 01/09/19 01/10/19 01/11/19 23:59 23:59 23:59 Intake Total 500 / 500 Output Total 900 / 900 Balance 500 / 500 -900 / -900 Medical Necessity - Tobacco Use Smoking Status: Never smoker Assessment/Plan All Active Problems (Last Reviewed 01/09/19 @ 10:40 by Mary Peralta) Active labor at term (Acute) UTI in (Acute) Genital herpes affecting (Acute) (Acute) Supervision of normal IUP (intrauterine ) in multigravida (Acute) s/p PPD # 1 1. routine post delivery care 2. breast feeding- support given 3. rh positive 4. rubella immune 5. Plans home today
--- NOTE | 2019-01-11 07:47 | PCM.DCVAG ---
Additional Instructions: If you experience any of the following, contact your healthcare provider. Bleeding that soaks a pad every hour for 2 hours Fever 100.4 or higher Unrelieved incision or abdominal pain Swelling, redness, discharge or bleeding from your incision or episiotomy site Your incision begins to separate Problems urinating (including inability to urinate or burning while urinating). Visual changes Severe headache Flu-like symptoms Pain or redness in one of both of your breasts Pain, warmth, tenderness or swelling in your legs, especially the calf area Frequent nausea and vomiting Symptoms of depression or anxiety If you experience any of the following, call 911 or go to the nearest Emergency Room. Chest pain Problems breathing Seizure activity Partial or complete paralysis of a body part, slurred speech, weakness or drooping of the face, or a sudden inability to walk or hold your balance Allergies/Adverse Reactions: Allergies amoxicillin [Amoxicillin] Allergy (Mild, Verified 01/09/19 10:39) Rash Medications to take at Discharge Valacyclovir HCl [Valacyclovir] 500 mg PO DAILY 01/06/19 Prenatabs FA 1 tab PO DAILY 01/09/19 Primary Care Physician: Care Physician,No Primary [Primary Care Provider] - Test Results: Test results from this visit will be discussed in further detail at your follow-up appointment, if applicable.
--- NOTE | 2019-01-11 07:48 | DCINST_ITS ---
Additional Instructions: If you experience any of the following, contact your healthcare provider. * Bleeding that soaks a pad every hour for 2 hours * Fever 100.4 or higher * Unrelieved incision or abdominal pain * Swelling, redness, discharge or bleeding from your incision or episiotomy site * Your incision begins to separate * Problems urinating (including inability to urinate or burning while urinating). * Visual changes * Severe headache * Flu-like symptoms * Pain or redness in one of both of your breasts * Pain, warmth, tenderness or swelling in your legs, especially the calf area * Frequent nausea and vomiting * Symptoms of depression or anxiety If you experience any of the following, call 911 or go to the nearest Emergency Room. * Chest pain * Problems breathing * Seizure activity * Partial or complete paralysis of a body part, slurred speech, weakness or drooping of the face, or a sudden inability to walk or hold your balance Allergies/Adverse Reactions: Allergies amoxicillin [Amoxicillin] Allergy (Mild, Verified 01/09/19 10:39) Rash Medications to take at Discharge Valacyclovir HCl [Valacyclovir] 500 mg PO DAILY 01/06/19 Prenatabs FA 1 tab PO DAILY 01/09/19 Primary Care Physician: Care Physician,No Primary [Primary Care Provider] - Test Results: Test results from this visit will be discussed in further detail at your follow- up appointment, if applicable.
[2019-01-11 08:30] VITALS: BP 83/50; PULSE 80; RESP 16; TEMP 36.9; O2SAT 16
--- NOTE | 2019-01-16 17:35 | NURSING ---
Follow up phone call voicemail left. Yanci RUBIO
== END 2019-01-11 11:50 | disposition home or self-care (01) | DRG 806 ==
LOC: WPOUT 00:16
PROVIDERS: Admitting Provider Obstetrics & Gynecology; Referring Provider Obstetrics & Gynecology; Visit Provider Obstetrics & Gynecology
DX: O72.1 Other immediate postpartum hemorrhage (principal); O23.43 Unspecified infection of urinary tract in pregnancy, third trimester; Z37.0 Single live birth; O98.313 Other infections with a predominantly sexual mode of transmission complicating pregnancy, third trimester; A60.09 Herpesviral infection of other urogenital tract; Z3A.40 40 weeks gestation of pregnancy
CPT/HCPCS: 59025; 59050; 85025; 86850; 86900; 99218; J7120; A4216; G0378; J2405

== ENCOUNTER → 2019-02-21 13:17 | Outpatient (CLI) | payer OTHER, SELFPAY ==
[2019-02-21 10:32] VITALS: BMI 30.7
[2019-02-23 12:43] LABS: HPV Reflexed? NOT INDICATED
== END ==
PROVIDERS: Referring Provider Obstetrics & Gynecology; Visit Provider Obstetrics & Gynecology
DX: Z12.4 Encounter for screening for malignant neoplasm of cervix (principal)
CPT/HCPCS: 87624; 88175; G0145

== ENCOUNTER 2019-04-15 06:06 | Emergency (ER) | payer OTHER, SELFPAY ==
[2019-02-21 10:32] VITALS: BMI 30.7
[2019-04-15 06:07] VITALS: BP 134/86; PULSE 82; RESP 16; TEMP 36.5; O2SAT 98; BMI 25.9
--- NOTE | 2019-04-15 06:51 | ED.VISSUMM ---
- ER Visit Summary Date of Service: 04/15/19 Chief Complaint: Headache History of Present Illness: The patient is a 24 F who presents with a headache that began this morning. Patient states she did have a preceding aura prior to her headache. Patient states she has a history of migraine headaches. Patient states this is similar to prior migraine headaches but worse. Patient admits to nausea and vomiting. Patient also admits to some numbness and tingling. Patient admits to photophobia. Patient denies any fevers or chills. Patient denies any chest pain or shortness of breath. Physical Examination: Vital signs are stable. Patient is afebrile. Patient is in no acute distress. Oral mucosa is pink and moist. Neck is supple. Trachea is midline. There is no JVD noted. Heart was regular rate and rhythm. Lungs are clear and equal bilaterally. Abdomen is soft. Bowel sounds are normal. There is no tenderness. Cranial nerves II through XII are intact. There are no focal motor or sensory deficits noted. Emergency Department Course and Treatment: Patient was given IV fluids, Reglan, Benadryl, and Toradol. Disposition: The patient was turned over to the oncoming physician pending results of medications. Impression: Migraine headache This note was generated with [employer] dictation software. It may contain incorrect words, spelling, and punctuation that were not noted in review of the chart prior to signing ED Disposition - Plan for ED Patient: Disposition: Home or Assisted Living Diagnosis: Migraine headache Instructions: ED, Migraine (Classical) Referrals: Care Physician,No Primary [Primary Care Provider] -
[2019-04-15] MEDS: 0.9% Normal Saline 1,000 ML 999 ML IV (07:25)
[2019-04-15] MEDS: Metoclopramide 10 MG/2 ML Vial IV (07:26)
[2019-04-15] MEDS: DiphenhydrAMINE 50 MG/ML Syringe 25 MG IV (07:26)
[2019-04-15] MEDS: Ketorolac 30 MG/ML Syringe IV (07:26)
--- NOTE | 2019-04-15 08:01 | ED.DEP ---
ED Disposition - Plan for ED Patient: Disposition: Home or Assisted Living Diagnosis: Migraine headache Instructions: ED, Migraine (Classical) Referrals: Liat Raphael [NON-STAFF] -
== END 2019-04-15 08:17 | disposition home or self-care (01) ==
PROVIDERS: Emergency Provider Emergency Medicine
DX: G43.909 Migraine, unspecified, not intractable, without status migrainosus (principal)
CPT/HCPCS: 96361; 96374; 96375; 99283; J7030; A4216

== ENCOUNTER → 2019-07-05 16:43 | Outpatient (CLI) | payer OTHER, SELFPAY ==
[2019-07-05 16:17] VITALS: BMI 25.9
== END ==
PROVIDERS: Referring Provider Nurse Practitioner Women's Health; Visit Provider Nurse Practitioner Women's Health
DX: R10.2 Pelvic and perineal pain (principal)
CPT/HCPCS: 87070; 87205

== ENCOUNTER → 2020-02-11 13:39 | Emergency (ER) | payer OTHER, SELFPAY ==
[2019-07-05 16:17] VITALS: BMI 25.9
[2020-02-11 13:40] VITALS: BP 134/97; PULSE 68; RESP 16; TEMP 36.6; O2SAT 100; BMI 20.5
--- NOTE | 2020-02-11 13:50 | ED.DCSUM_ITS ---
History of Present Illness Chief Complaint: Headache Detail of Chief Complaint: Right sided with ocular symptoms and paresthesia Informant: Patient Onset: Days - Past 8 days Context: Sudden Timing: Intermittent, Waxes and wanes Quality: Similar Prior Headaches Location: Right side of patient's head Current Severity: Severe Maximum Severity: Severe Associated Symptoms: Nausea, Vomiting, Numbness, Tingling, Preceding Aura, Visual Changes, Photophobia. Negative for: Fever, Sore Throat, Sinus Pressure, Blurred Vision, Visual Loss Injury: - - No history of trauma. Narrative: Patient 24-year-old female with known history of migraine headaches who presents with intermittent headache for the past 8 days. She does have aura. She reports throbbing headache on the right side with photophobia. She reports altered vision on the left side with tingling left side. This is her typical migraine headache. 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 She denies fever, chills night s weats. She denies trouble with speech or swallowing. She denies use loss of use of extremities. She denies problems with balance. Prior similar symptoms: Yes Recent Illness/Hospitalization: No - Past Medical History (1) Migraine headache with aura Status: Acute (2) Intractable ophthalmic migraine Status: Acute (3) Migraine, hemiplegic Status: Acute Past Medical History - Allergies and Home Meds Allergies/Adverse Reactions: Allergies amoxicillin [Amoxicillin] Allergy (Mild, Verified 02/11/20 13:43) Rash Primary Care Physician: Care Physician,No Primary [Primary Care Provider] - Prior records reviewed: Yes Surgical History: noncontributory Lives: Spouse/ Significant Other, With Family Smoking Status: Never smoker Alcohol: Rare Drugs: None Review of Systems General: Denies: Chills, Fever, Malaise Eyes: Reports: Visual changes - left, Blurred vision - left. Denies: Diplopia ENT: Reports: - - Denies dysphasia or dysphonia. Denies: Bilateral ear pain, Rhinorrhea, Sore throat Cardiovascular: Reports: Chest pain, Palpitations Respiratory: Denies: Dyspnea, Cough, Sputum Gastrointestinal: Reports: Nausea, Vomiting. Denies: Abdominal pain, Diarrhea Genitourinary: Denies: Dysuria, Hematuria Musculoskeletal: Denies: Myalgias, Arthralgias, Neck pain, Back pain, Swelling, Extremity Pain Skin: Denies: Rash Neurological: Reports: Headache, Parasthesia, Numbness. Denies: Weakness Endocrine: Denies: Polyuria, Polydipsia Physical Exam Vital Signs/Narrative: Vital Signs Temp Pulse Resp BP Pulse Ox 02/11/20 13:40 97.8 F 68 16 134/97 H 100 Inital Vital Signs reviewed: Yes General: Well nourished, Well developed Head: NC, AT. Negative for: Trauma, Tenderness, Temporary Artery Tenderness, Vesicular Rash Eyes: Perrl, EOMI. Negative for: Pale conjunctiva, Scleral icterus ENT: Moist mucous membranes, No rhinorrhea Neck: Supple, No Lymphadenopathy, No JVD, Nontender, No Meningismus Cardiovascular: Regular rate, Regular rhythm, No murmurs Respiratory: No distress, CTA bilaterally, Chest nontender Abdomen: Soft, Nontender Extremities: Nontender, No edema. Negative for: Calf Tenderness Skin: Normal color, No rash, No Trauma Neuro: Alert, Oriented x3, Cranial nerves II-XII grossly intact, Normal Strength, Normal Sensation, Normal DTR, Normal Gait Psychological: Normal affect Diagnostic/Tx/Re-eval - Medical Decision Making Presents with her typical headache. She has been treated in the emergency permit entry C GI cocktail. Since she would like to return to work Benadryl was substituted with Cogentin. She also received IV Toradol and Reglan. She appears uncomfortable. Patient was reassessed at 1430 and 1445. She feels much better. She is calling her to take her home. ED Disposition - Plan for ED Patient: Disposition: Home or Assisted Living Diagnosis: Migraine with aura, intractable, without status migrainosus, Intractable ophthalmic migraine Instructions: ED, Migraine (Classical) Referrals: Care Physician,No Primary [Primary Care Provider] - Doctor,Your [STAFF PHYSICIAN] - 3-5 Days if not improving
[2020-02-11] MEDS: Metoclopramide 10 MG/2 ML Vial IV (13:56)
[2020-02-11] MEDS: Ketorolac 30 MG/ML Syringe IV (13:56)
== END | disposition home or self-care (01) ==
PROVIDERS: Emergency Provider Student in an Organized Health Care Education/Training Program
DX: G43.119 Migraine with aura, intractable, without status migrainosus (principal); Z88.0 Allergy status to penicillin
CPT/HCPCS: 96374; 96375; 99283; A4216

== ENCOUNTER → 2021-01-10 12:26 | Outpatient (CLI) | payer OTHER, SELFPAY ==
[2020-02-11 13:40] VITALS: BMI 20.5
[2021-01-10 14:15] LABS: hCG Titer Quant., Serum 2 mIU/mL (1-3)
== END ==
PROVIDERS: Referring Provider Obstetrics & Gynecology; Visit Provider Obstetrics & Gynecology
DX: O20.0 Threatened abortion (principal); Z3A.00 Weeks of gestation of pregnancy not specified
CPT/HCPCS: 36415; 84702

== ENCOUNTER → 2021-01-12 12:45 | Outpatient (CLI) | payer OTHER, SELFPAY ==
[2020-02-11 13:40] VITALS: BMI 20.5
[2021-01-12 13:48] LABS: hCG Titer Quant., Serum < 1 mIU/mL (1-3)
== END ==
PROVIDERS: Visit Provider Obstetrics & Gynecology
DX: O20.0 Threatened abortion (principal); Z3A.00 Weeks of gestation of pregnancy not specified
CPT/HCPCS: 36415; 84702

== ENCOUNTER → 2021-03-12 05:55 | Outpatient (CLI) | payer OTHER, SELFPAY ==
[2020-02-11 13:40] VITALS: BMI 20.5
[2021-03-12 08:22] LABS: hCG Titer Quant., Serum 893 mIU/mL (1-3)
== END ==
PROVIDERS: Visit Provider Obstetrics & Gynecology
DX: N92.6 Irregular menstruation, unspecified (principal)
CPT/HCPCS: 36415; 84702

== ENCOUNTER → 2021-03-14 11:50 | Outpatient (CLI) | payer OTHER, SELFPAY ==
[2020-02-11 13:40] VITALS: BMI 20.5
[2021-03-14 13:19] LABS: hCG Titer Quant., Serum 2317 mIU/mL (1-3)
== END ==
PROVIDERS: Referring Provider Obstetrics & Gynecology; Visit Provider Obstetrics & Gynecology
DX: N92.6 Irregular menstruation, unspecified (principal)
CPT/HCPCS: 36415; 84702

== ENCOUNTER → 2021-05-20 11:25 | Outpatient (CLI) | payer OTHER, SELFPAY ==
[2021-05-20 12:56] LABS: Absolute Lymphocyte Count 1.42 X10^3/uL (0.83-4.51); Absolute Neutrophil Count 5.1 X10^3/uL (2.0-7.7); Basophil# 0.03 X10^3/uL; Basophil% 0.4 % (0-1); Eosinophil# 0.18 X10^3/uL; Eosinophils% 2.5 % (0-5); Hematocrit 38.8 % (37-47); Hemoglobin 13.2 g/dL (12.0-15.0); Lymphocyte # 1.42 X10^3/ul (0.83-4.51); Lymphocyte % 19.7 % (19-41); Mean Corpuscular Hgb 31.9 pg (27.0-32.0); Mean Corpuscular Volume 93.7 fL (81-99); Monocyte# 0.49 X10^3/uL; Monocyte% 6.8 % (0-10); NRBC Flagged by Analyzer 0 % (0-5); Neutrophil # 5.08 X10^3/uL (2.7-7.7); Neutrophil % 70.3 % (47-70); Platelet Count 257 K/mm3 (150-450); RBC Distribution Width CV 12.4 % (11.6-14.6); RBC Distribution Width SD 42.7 fl (35.1-43.9); Red Blood Count 4.14 M/mm3 (4.2-5.4); White Blood Count 7.2 K/mm3 (4.4-11.0)
[2021-05-20 14:21] LABS: HIV - WCH Non-Reactive (Nonreactive); Hepatitis B Surface Antigen Non-Reactive (Nonreactive); Hepatitis C Antibody Non-Reactive (Nonreactive); Rubella IgG Reactive (Nonreactive); Syphilis Antibodies Non-reactive
== END ==
PROVIDERS: Referring Provider Advanced Practice Midwife; Visit Provider Advanced Practice Midwife
DX: Z33.1 Pregnant state, incidental (principal); Z3A.14 14 weeks gestation of pregnancy
CPT/HCPCS: 36415; 85025; 86703; 86762; 86780; 86803; 86900; 86901; 87340

== ENCOUNTER → 2021-07-15 19:57 | Outpatient (CLI) | payer OTHER, SELFPAY | PROVIDERS: Visit Provider Obstetrics & Gynecology | DX: R30.0 Dysuria (principal) | CPT/HCPCS: 87086; 87088; 87186 ==

== ENCOUNTER 2021-08-19 17:04 | Outpatient (CLI) | payer OTHER, SELFPAY ==
[2021-08-19 17:24] LABS: Bacteria 0 SEEN /hpf (None Seen); Mucous, Urine 0 SEEN /hpf (<or=2+); Red Blood Cells-Urine 0 SEEN /hpf (0-5); White Blood Cells 0 SEEN /hpf (0-5)
[2021-08-19 17:48] LABS: Color, Urine Yellow (Yellow); Glucose, Dipstick Normal (Normal); Ketone-Dipstick Negative (Negative); Leukocyte Esterase-Dipstick Negative /ul (Negative); Nitrite-Dipstick Negative (Negative); Occult Blood-Urine Negative /ul (Negative); Protein-Dipstick Negative (Negative); Specific Gravity, Urine 1.015 (1.002-1.030); Urine Bilirubin Dipstick Negative (Negative); Urine Clarity Clear (Clear); Urine Urobilinogen Normal (Normal)
[2021-08-19 18:03] LABS: Squamous Epithelial Cells - UA 0-5 SEEN /hpf (5-10)
[2021-08-19 18:04] LABS: Amorphous Sediment 1+
== END 2021-08-19 23:59 | disposition short-term general hospital (02) ==
PROVIDERS: Visit Provider Advanced Practice Midwife
DX: R10.9 Unspecified abdominal pain (principal)
CPT/HCPCS: 81001; 87086; 87088

== ENCOUNTER 2021-09-03 08:51 | Outpatient (CLI) | payer OTHER, SELFPAY ==
[2021-09-03 09:10] LABS: Hematocrit 36.8 % (37-47); Hemoglobin 12.9 g/dL (12.0-15.0); Mean Corp Hgb Conc 35.1 g/dL (32-36); Mean Corpuscular Hgb 32.8 pg (27.0-32.0); Mean Corpuscular Volume 93.6 fL (81-99); Mean Platelet Vol. 8.8 fl (6.2-12.0); Platelet Count 239 K/mm3 (150-450); RBC Distribution Width CV 12.5 % (11.6-14.6); RBC Distribution Width SD 43.1 fl (35.1-43.9); Red Blood Count 3.93 M/mm3 (4.2-5.4); White Blood Count 7.8 K/mm3 (4.4-11.0)
[2021-09-03 09:40] LABS: Glucose Challenge Gest 1H 50g 116 mg/dL (70-140)
[2021-09-03 10:04] LABS: Syphilis Antibodies Non-reactive
== END 2021-09-03 23:59 | disposition short-term general hospital (02) ==
PROVIDERS: Referring Provider Advanced Practice Midwife; Visit Provider Advanced Practice Midwife
DX: Z34.82 Encounter for supervision of other normal pregnancy, second trimester (principal)
CPT/HCPCS: 36415; 82950; 85027; 86780

== ENCOUNTER 2021-09-19 09:09 | Outpatient (CLI) | payer OTHER, SELFPAY ==
--- NOTE | 2021-09-19 09:13 | US_ITS ---
STUDY: SECOND AND THIRD TRIMESTER OBSTETRICAL ULTRASOUND REASON FOR EXAM: Female, 26 years old growth -- hx choroid plexus cysts LMP: 02/06/2021. TECHNIQUE: Transabdominal TECHNICAL QUALITY: Adequate. PRIOR ULTRASOUND: Prior comparison studies are not available for review at this time. FINDINGS: There is a single intrauterine fetus. The fetus is in a cephalic presentation. There is demonstrated cardiac activity with a heart rate of 126 bpm. There is a normal amniotic fluid volume. The largest amniotic fluid pocket measures 3.2 cm. The amniotic fluid index (SUSHANT) is 9.5 cm. The placenta is anterior in location and is not low lying. There are Grade 1 placental changes. The cervix measures 3.2 cm in length. The adnexal regions are not visualized. BIOMETRY: BPD: 8 cm: 32 weeks, 0 days HC: 30 cm: 32 weeks, 4 days AC: 29 cm: 32 weeks, 5 days FL: 6.2 cm: 32 weeks, 2 days CI: 78% FL/BPD: 78% FL/HC: FL/AC: 22% HC/AC: 1.03 age by current US: 32 weeks, 1 days. ANATOLIY by current US: 11/13/2021. Estimated weight: 2011 grams, +/- 302 grams, 54 %. Age by LMP: 32 weeks, 1 days. ANATOLIY by LMP: . ANATOMY: Gender: Cranium: Normal lateral ventricles. Normal choroid plexus. US/OB Limited With Biometrics IMPRESSION: Single life intrauterine gestation with mean gestational age of 32 weeks and 1 day. No evidence of choroid plexus cyst at this time. Electronically Signed: Geovanny Collado MD at 13:20 EST ,
== END 2021-09-19 23:59 | disposition home or self-care (01) ==
LOC: OPUS 09:10
PROVIDERS: Referring Provider Advanced Practice Midwife; Visit Provider Advanced Practice Midwife
DX: O35.0XX0 Maternal care for (suspected) central nervous system malformation in fetus, not applicable or unspecified (principal)
CPT/HCPCS: 76816

== ENCOUNTER 2021-10-27 16:34 | Outpatient (CLI) | payer OTHER, SELFPAY ==
--- NOTE | 2021-10-27 16:42 | US_ITS ---
STUDY: SECOND AND THIRD TRIMESTER OBSTETRICAL ULTRASOUND - LIMITED REASON FOR EXAM: Female, 26 years old. GROWTH 36 WEEKS PRIOR ULTRASOUND: 2.18.22 TECHNIQUE: Transabdominal TECHNICAL QUALITY: Adequate. FINDINGS: There is a single intrauterine fetus. The fetus is in a cephalic presentation. There is demonstrated cardiac activity with a heart rate of 128 bpm. There is a normal amniotic fluid volume. The largest amniotic fluid pocket measures 3.4 cm. The amniotic fluid index (SUSHANT) is 8 cm. The placenta is anterior in location and is not low lying. There are Grade 3 placental changes. The cervix is obscured by overlying bowel gas and cannot be identified. . BIOMETRY: BPD: 91 mm: 37 weeks, 0 days HC: 330 mm: 37 weeks, 3 days AC: 330 mm: 36 weeks, 6 days FL: 39 mm: 35 weeks, 1 days CI: 81 FL/AC: 20.7 FL/BPD: 75 HC/AC: 1.0 age by current US: 36 weeks, 5 days. ANATOLIY by current US: 4.2.22. Estimated weight: 3003 grams, +/- 450 grams, 36.55 %. age by prior US: 37 weeks, 4 days. ANATOLIY by prior US: 4.14.22. Age by LMP: 37 weeks, 4 days. ANATOLIY by LMP: 4.14.22. US/OB Limited With Biometrics IMPRESSION: There is a single live intrauterine with a heart rate of 128 bpm. age by current US: 36 weeks, 5 days. ANATOLIY by current US: 4.2.22. Estimated weight: 3003 grams, +/- 450 grams, 36.55 %. Electronically Signed: Shaan Freire MD at 20:38 EDT ,
== END 2021-10-27 23:59 | disposition home or self-care (01) ==
LOC: US 16:36
PROVIDERS: Referring Provider Advanced Practice Midwife; Visit Provider Advanced Practice Midwife
DX: O99.892 Other specified diseases and conditions complicating childbirth (principal); R62.50 Unspecified lack of expected normal physiological development in childhood; Z3A.34 34 weeks gestation of pregnancy
CPT/HCPCS: 76816

== ENCOUNTER 2021-11-10 03:00 | Inpatient (IN) | payer OTHER, SELFPAY ==
[2021-11-10] VITALS (28 sets, daily range): BP systolic 106–146; BP diastolic 62–96; PULSE 68–103; RESP 14–16; TEMP 35.9–37; O2SAT 93–100; BMI 32.7
[2021-11-10 03:34] LABS: Absolute Lymphocyte Count 1.83 X10^3/uL (0.83-4.51); Absolute Neutrophil Count 7.7 X10^3/uL (2.0-7.7); Basophil# 0.03 X10^3/uL; Basophil% 0.3 % (0-1); Eosinophil# 0.05 X10^3/uL; Eosinophils% 0.5 % (0-5); Hematocrit 42.1 % (37-47); Hemoglobin 13.9 g/dL (12.0-15.0); Lymphocyte # 1.83 X10^3/ul (0.83-4.51); Lymphocyte % 17.4 % (19-41); Mean Corpuscular Hgb 29.8 pg (27.0-32.0); Mean Corpuscular Volume 90.3 fL (81-99); Mean Platelet Vol. 9.5 fl (6.2-12.0); Monocyte# 0.84 X10^3/uL; NRBC Flagged by Analyzer 0 % (0-5); Neutrophil # 7.68 X10^3/uL (2.7-7.7); Neutrophil % 73.1 % (47-70); Platelet Count 241 K/mm3 (150-450); RBC Distribution Width CV 13.1 % (11.6-14.6); RBC Distribution Width SD 43.1 fl (35.1-43.9); Red Blood Count 4.66 M/mm3 (4.2-5.4); White Blood Count 10.5 K/mm3 (4.4-11.0)
--- NOTE | 2021-11-10 04:59 | HP.PCM.OB_ITS ---
HPI - General General Date of Admission: 11/10/21 HPI Narrative MEHDI ROBERTS, is a 26 F 5 para 2-0-2-2 who presents at 39-4/7-week complaining contractions. She denies any gross vaginal bleeding or leaking of fluid. She has had good movement. is uncomplicated to date. Denies symptoms of HSV, has been on acyclovir prophylactically. Maternal Data Information Final ANATOLIY: 11/13/21 Gestational age: 40 4/7 [facility] Medical History (Updated 11/10/21 @ 05:[address] Tere Vance MD) Mgrn w aura wo ntrc mgrn Home Medications acyclovir 11/10/21 [History Last Taken 11/09/21] vit-iron fum-folic ac [ Vitamin Formula] 1 tab PO QODAY 11/10/21 [History Last Taken 11/08/21] Allergy/AdvReac Type Severity Reaction Status Date / Time amoxicillin [Amoxicillin] Allergy Mild Rash Verified 11/10/21 01:40 Family History Grandmother CVA (cerebral vascular accident) Grandfather Heart disease Surgical History s/p left arm S/P tonsillectomy and adenoidectomy Social History (Updated 07/05/19 @ 16:35 by Patsy Arthur BED MANAGER, BED MANAGER-C) Smoking Status: Never smoker alcohol intake: never substance use type: does not use caffeine: Yes what type of physical activity do you participate in: walking seatbelt use: always do you feel safe at home: Yes additional social history: - Galdino- Works at [employer] Patient works at [employer] History 3 Elective abortions Hx Para 2 Spontaneous abortions Hx # Term Pregnancies Ectopic pregnancies Hx # Pregnancies Multiple births # of living children 2 Past Pregnancies Del. Date Name GA/Weeks Outcome Route Bth Weight Infant Gen Labor Lgth Anesthesia Del Locatn Provider FOB 10/25/17 [place] 37 live - full term 7lbs 8oz Male 37 h ours none [place] Dr. Julissa Ahmadi 01/10/19 Mindy 40 live - full term Female none [facility] Delivery Date: 10/25/17 Elevated blood pressure at end of was induced due to. Aura Bloom Delivery Date: 01/10/19 No notes to display Vital Signs Vital Signs Vital Signs: 11/10/21 01:43 11/10/21 01:45 11/10/21 02:08 Temperature 97.0 F L Temperature Source Temporal Pulse Rate 89 77 84 Blood Pressure 146/96 H 130/84 H BP Systolic 146 130 BP Diastolic 96 84 Pulse Ox 98 98 11/10/21 03:15 11/10/21 03:20 11/10/21 03:35 Temperature Temperature Source Pulse Rate 68 86 93 Blood Pressure BP Systolic BP Diastolic Pulse Ox 99 100 98 Weight Weight: 86.455 kg Body Mass Index (BMI) 32.7 Physical Exam Const alert and no apparent distress General Appearance: cooperative HEENT normocephalic Resp normal respiratory effort Cardio regular rate GI soft to palpation GI Narrative: gravid, nontender, appropriate for gestational age Narrative: no HSV lesions noted Extremity no calf tenderness General Extremity: edema Skin no wounds Rashes: No rashes noted Psych activity/motor behavior normal Labs Labs Labs: Blood Type A POSITIVE Antibody Screen NEGATIVE Hct 42.1 % (37-47) Hgb 13.9 g/dL (12.0-15.0) Obstetrics US Syphilis Total Ab Non-reactive Rubella IgG Antibody Reactive (Nonreactive) Hep Bs Antigen Non-Reactive (Nonreactive) HIV 1&2 Antibody Non-Reactive (Nonreactive) Glucose 1 Hr 50 gm 116 mg/dL (70-140) Rhogam given: No Assessment & Plan (1) Active labor at term: PLAN: Estimated weight is less than 4500 g clinically, pelvis clinically adequate to expect vaginal delivery. May have epidural, nitrous or epidural if desires for pain control. Patient desires natural labor at this point. Declines Pitocin at delivery. (2) 39 weeks gestation of :
[2021-11-10] MEDS: Oxytocin 30 units/NS 500 ml 30 UNITS/500 ML IV.SOLN 334 UNITS IV (05:28)
--- NOTE | 2021-11-10 05:35 | EX.PCM.OBRPT ---
Assessment & Plan (1) 39 weeks gestation of : (2) Active labor at term: (3) (spontaneous vaginal delivery): Maternal Data Information Final ANATOLIY: 11/13/21 Gestational age: 39 4/7 Vaginal Delivery Maternal Presentation Maternal Presentation: Active Labor Operative Information Date of Procedure: 11/10/21 Pre-Operative Diagnosis: labor Post-Operative Diagnosis: same Surgery / Procedure Performed: Spontaneous Vaginal Delivery Type of Anesthesia: None Special Medications: none Drain: - (none) Estimated Blood Loss: 400 Time of Delivery: 05:21 Findings Description of Procedure: A vigorous male was delivered LESVIA over an intact perineum. The remainder the infant was delivered with maternal pushing and gentle traction only in less than 15 seconds. Patient declined Pitocin infusion. There was a gush of blood and patient began to push and with gentle cord traction the placenta delivered intact. The uterus was initially boggy but firm with some fundal massage and evacuation of a uterine clot. The cord was then clamped and cut. The uterus then became boggy again and required a small clot to be removed from the cervix. Patient then permitted Pitocin to be initiated and fundal massage and the uterus was firm. The was attended to by the waiting nursing staff. The cervix and vagina were intact. Sponge and needle counts were correct. A vaginal sweep was completed by me. Presentation: LESVIA Amniotic Membrane Rupture Type: Artificial Placental Delivery Description: Spontaneous Placenta Disposition: [facility] Cord Vessel Description: 3 Vessels Cord Entanglement: None Infant A Gender: Male (1 minute): 8 (5 minute): 9 Delayed Cord Clamping: Yes Post Vaginal Delivery Medications Given After Delivery: IV Pitocin Episiotomy Description: None Laceration: None Complication Complications: None
[2021-11-10] MEDS: Methylergonovine 0.2 MG/ML Ampul IM (05:50)
--- NOTE | 2021-11-10 11:48 | NURSING ---
pt passed a large clot, approx. 3 inches in diameter. Fundus firm at 2 below. No active bleeding noted with fundal check. Instructed to inform RN of any more clots or an increase in bleeding.
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
[2021-11-11 00:43] VITALS: BP 125/79; PULSE 72; RESP 16; TEMP 36.6
[2021-11-11] MEDS: Naproxen 500 MG Tablet PO (00:43)
[2021-11-11 00:44] VITALS: TEMP 36
[2021-11-11 00:45] VITALS: BP 125/79; PULSE 72
[2021-11-11 04:24] VITALS: BP 106/58; PULSE 83; RESP 16; TEMP 35.9; TEMP 36.6
[2021-11-11 07:29] VITALS: BP 108/66; PULSE 79; RESP 16; TEMP 35.9; O2SAT 97
--- NOTE | 2021-11-11 12:54 | PCM.DC.SUM ---
Providers Date of Admission: 11/10/21 Primary Care Physician: Elisa Primary Care Phys Reason For Visit: LABOR Diagnosis Discharge Diagnosis (1) 39 weeks gestation of : Status: Acute Code(s): Z3A.39 - 39 weeks gestation of (2) Active labor at term: Status: Acute (3) (spontaneous vaginal delivery): Status: Acute Code(s): O80 - Encounter for full-term uncomplicated delivery Medications at Discharge Home Medications vit-iron fum-folic ac 1 tab PO QODAY 11/10/21 Hospital Course Operations None Procedures None Summary of Care Provided Hospital Course: Patient admitted early 11/10 for labor. on 11/10/2020 without complications. D/c home today at her request. Weight / BMI Weight Weight: 86.455 kg Body Mass Index (BMI) 32.7 ABG / Lab / Microbiology Data Result Diagrams: 11/10/21 03:15 Microbiology: Microbiology 11/10/21 03:15 Nasal Secretion SARS-CoV-2 Antigen (Rapid) - Final D/C Instructions Discharge Diet: No restrictions May resume sexual activity in: 6 weeks Call your doctor if your incision/area has: Continuous Slow Oozing, Sudden Increased Bleeding, Foul Smelling Discharge and Swelling at the incision site Call your doctor if you observe: Fever of 101 or Higher and Inability to urinate Please Follow Up With: Tere Vance MD When: Follow up with our office in 1-2 and 6 weeks or as needed. [phone] Meaningful Use Info Meaningful Use Diagnoses (Choose all that apply): None applicable Discharge Plan Admission Admit Date/Time: 11/10/21 03:00 Primary Reason for Your Visit: delivery Attending Provider: Tere Vance Primary Care Provider: Care Physician,No Primary Instructions Patient Instructions: After a Vaginal Discharge Orders/Prescriptions Prescriptions: Continued vit-iron fum-folic ac 60-0.8 mg Tablet 1 tab PO QODAY RF: 0 Discontinued acyclovir 200 mg Capsule RF: 0 Referrals / Follow Up: Care Physician,No Primary [Primary Care Provider] - Disposition Disposition (needs filled in before D/C Order can be placed): Home, Self Care
--- NOTE | 2021-11-11 12:56 | PCM.PN.BLA ---
Progress Note Nursing reports patient is doing well w/o c/o. Desires d/c home. Desired to leave before provider computer numerical control programmer could round on her so being discharged home without being seen. I did talk w/ her on the phone and she reported she was doing well. Average lochia nad cramping. Urinating and tolerating regular diet. . Desires d/c home.
== END 2021-11-11 12:45 | disposition home or self-care (01) | DRG 807 ==
LOC: WPOUT 03:00 → WP 03:00
PROVIDERS: Admitting Provider Obstetrics & Gynecology; Visit Provider Obstetrics & Gynecology
DX: O26.23 Pregnancy care for patient with recurrent pregnancy loss, third trimester (principal); Z37.0 Single live birth; Z3A.39 39 weeks gestation of pregnancy
CPT/HCPCS: 59025; 59050; 85025; 86850; 86900; 86901; 87426; 99218; G0378

== ENCOUNTER 2022-03-31 12:31 | Emergency (ER) | payer OTHER, SELFPAY ==
[2022-03-31 12:33] VITALS: BP 128/96; PULSE 95; RESP 18; TEMP 36.5; O2SAT 97; BMI 26.2
--- NOTE | 2022-03-31 13:20 | RAD_ITS ---
STUDY: X-RAY - RIGHT FOOT CLINICAL: Female, 27 years old. Injury/Pain TECHNIQUE: 3 view(s) of the foot. COMPARISON: None. FINDINGS: Normal talus, calcaneus, and tarsal bones. Normal visualized subtalar, talonavicular, calcaneocuboid, tarsal and tarsometatarsal articulations. Normal metatarsi. Normal metatarsophalangeal joint of the great toe. Normal tibial and fibular sesamoid bones. Normal interphalangeal joint of the great toe. Normal phalanges of the great toe. Normal second through fifth metatarsophalangeal joints. Normal interphalangeal joints and phalanges of the lesser toes. The soft tissue structures are unremarkable. RAD/Foot min 3 Views IMPRESSION: Normal x-ray examination of the foot. Electronically Signed: Geovanny Collado MD at 13:40 EDT ,
--- NOTE | 2022-03-31 14:14 | EDS_ITS ---
HPI History of Present Illness HPI Narrative: Patient presents with right foot injury that occurred today. Patient states she missed a step and twisted her right foot. Patient describes her pain as aching and sharp at times. Patient states her pain is worse with weightbearing. Patient denies any paresthesias or weakness. Patient denies any head injury or loss of consciousness. Patient denies any other injuries. Patient states it is worse over the lateral aspect of her right foot. Patient denies any ankle pain. Patient denies any pain over the proximal fibula. Chief Complaint: Lower Extremity Injury Onset/Context/Timing Onset: Today Context: Sudden Onset Timing: Continuous Quality of Pain: Sharp and Aching Location: Right foot Worsened by: Weightbearing Relieved by: Nothing Associated Symptoms Associated Symptoms: Negative for Parasthesia, Weakness or Loss of Funtion [facility] Medical History (Updated 03/31/22 @ 14:[address] Dyllan Sprague DO) Mgrn w aura wo ntrc mgrn (spontaneous vaginal delivery) Home Medications vit with calcium-iron fum-folic acid 60 mg-0.8 mg tablet 1 tab PO QODAY 11/10/21 [History Last Taken 11/08/21] Allergy/AdvReac Type Severity Reaction Status Date / Time amoxicillin [Amoxicillin] Allergy Mild Rash Verified 03/31/22 12:35 Family History Grandmother CVA (cerebral vascular accident) Grandfather Heart disease Surgical History s/p left arm S/P tonsillectomy and adenoidectomy Social History Smoking Status: Never smoker alcohol intake: never substance use type: does not use caffeine: Yes what type of physical activity do you participate in: walking seatbelt use: always do you feel safe at home: Yes additional social history: - Galdino- Works at [employer] Patient works at [employer] ED Constitutional Constitutional ED: Denies chills or fever(s) Eyes Eyes: Denies blurry vision or change in vision ENT ENT ED: Denies rhinorrhea or sore throat Cardiovascular Cardiovascular: Denies chest pain or palpitations Respiratory/Chest Respiratory/Chest: Denies cough or dyspnea Gastrointestinal Gastrointestinal: Denies nausea or vomiting Genitourinary Genitourinary ED: Denies dysuria or hematuria Musculoskeletal Musculoskeletal: Denies back pain or neck pain Integumentary Denies abscess or rash Neurologic Neurologic: Denies headache(s) or weakness Allergic/Immunologic Allergic/Immunologic ED: Denies mouth swelling or urticaria EXAM Physical Exam Const Vital Signs: 03/31/22 12:33 Temperature 97.7 F L Temperature Source Temporal Pulse Rate 95 Respiratory Rate 18 Blood Pressure 128/96 H Blood Pressure Mean 106 Pulse Ox 97 Oxygen Delivery Method Room Air Positive well nourished and well developed General Appearance ED: well developed and NAD HEENT Reports moist mucous membranes Neck full ROM Extremity Extremity Narrative: There is tenderness, edema, and ecchymosis over the fifth metatarsal. There is no obvious deformity noted. There is no bony crepitance or step-off. Range of motion was limited in all motions of the right foot secondary to pain. There is no tenderness over the medial or lateral malleoli. There is no tenderness over the proximal fibula. Neuro oriented x3, CN's II-XII intact bilaterally, moves all extremities and no sensory deficits noted Motor Exam: strength 5/5 throughout Psych mental status grossly normal MDM MDM MDM Narrative Medical decision making narrative: X-rays of the right foot were obtained. There are 3 views. On my interpretation, there is no acute fracture. There is no dislocation. There is no soft tissue swelling. Radiologist also interpreted the x-rays and agrees. Patient was given a postop shoe. Patient was instructed to ice and elevate the right foot. Patient was instructed to take Tylenol or ibuprofen as needed for pain. Patient was instructed to follow-up with her primary care physician in 5 to 7 days. Patient understood and was agreeable with the plan. All questions were answered. Radiography Diagnostic Testing: Clinical Impression(s) from Imaging Studies Foot X-Ray 03/31/22 13:20 IMPRESSION: Normal x-ray examination of the foot. Electronically Signed: Geovanny Collado MD at 13:40 EDT , Discharge Plan Triage Chief Complaint: Lower Extremity Injury ED Provider: Dyllan Sprague Dx/Rx/DC Orders Clinical Impression: Right foot sprain Prescriptions: No Action vit-iron fum-folic ac 60-0.8 mg Tablet 1 tab PO QODAY Primary Care Provider: Care Physician,No Primary Referrals: Kenny Cason MD [Med Staff - Blood Bank Laboratory Technician] - 5-7 Days Care Physician,No Primary [Primary Care Provider] - Disposition Disposition: Home, Self Care
== END 2022-03-31 14:51 | disposition home or self-care (01) ==
PROVIDERS: Emergency Provider Emergency Medicine; Visit Provider Emergency Medicine
DX: S93.601A Unspecified sprain of right foot, initial encounter (principal); X50.1XXA Overexertion from prolonged static or awkward postures, initial encounter
CPT/HCPCS: 73630; 99283

== ENCOUNTER 2023-01-19 11:15 | Emergency (ER) | payer OTHER, SELFPAY ==
[2023-01-19 11:18] VITALS: BP 140/86; PULSE 79; RESP 14; TEMP 36.1; O2SAT 100; BMI 24.3
[2023-01-19 11:28] VITALS: BMI 27.6
--- NOTE | 2023-01-19 11:32 | EDS_ITS ---
HPI History of Present Illness Chief Complaint: Headache Detail of Chief Complaint: Headache Informant: patient Narrative Narrative: Patient presents with a headache that started today around 8:40 AM. Patient states it came on gradually. Patient states that she has a history of migraines and this is typical of her migraines. Patient states that initially she started with some loss of vision in her right eye which is not unusual. Patient then had some stuttering speech. Patient denies any falls or head injuries. Currently rates her headache a 6 out of 10. She does have history of migraines but does not currently see a neurologist. She does complain of photophobia. She did vomit several times. [facility] Medical History (Updated 01/19/23 @ 12:[address] Roderick Jorgensen, ) Mgrn w aura wo [facility] mgrn (spontaneous vaginal delivery) Home Medications NK 01/19/23 [History Last Taken Unknown] Allergy/AdvReac Type Severity Reaction Status Date / Time amoxicillin [Amoxicillin] Allergy Mild Rash Verified 01/19/23 11:18 Family History Grandmother CVA (cerebral vascular accident) Grandfather Heart disease Surgical History s/p left arm S/P tonsillectomy and adenoidectomy Social History Smoking Status: Never smoker alcohol intake: never substance use type: does not use caffeine: Yes what type of physical activity do you participate in: walking seatbelt use: always do you feel safe at home: Yes additional social history: - Galdino- Works at [employer] Patient works at [employer] ED Review of Systems ROS Unobtainable: other Constitutional Constitutional ED: Reports lethargy; Denies chills, fever(s), sweats or weight loss Eyes Eyes: Denies blurry vision, change in vision or diplopia ENT ENT ED: Denies rhinorrhea or sore throat Cardiovascular Cardiovascular: Denies chest pain, orthopnea or racing heartbeat Respiratory/Chest Respiratory/Chest: Denies cough, dyspnea, dyspnea on exertion, orthopnea or sputum Gastrointestinal Gastrointestinal: Reports nausea and vomiting; Denies abdominal pain or diarrhea Genitourinary Genitourinary ED: Denies dysuria, hematuria or urinary frequency Musculoskeletal Musculoskeletal: Denies arthralgias, back pain, myalgias or neck pain Integumentary Denies abscess, Abrasions or rash Neurologic Neurologic: Reports headache(s); Denies weakness Psychiatric Psychiatric: Denies anxiety, depression or suicidal thoughts Endocrine Endocrinology: Denies polydipsia, polyphagia or polyuria Hematologic/Lymphatic Hematologic/Lymphatic: Denies easy bleeding, easy bruising or lymphadenopathy Allergic/Immunologic Allergic/Immunologic ED: Denies mouth swelling, tongue swelling or urticaria EXAM Physical Exam Const Vital Signs: 01/19/23 11:18 Temperature 97 F L Temperature Source Temporal Pulse Rate 79 Respiratory Rate 14 Blood Pressure 140/86 H Blood Pressure Mean 104 Pulse Ox 100 Oxygen Delivery Method Room Air Positive well nourished and well developed General Appearance ED: well developed and NAD HEENT Reports TM's clear and moist mucous membranes normocephalic and atraumatic; Negative for trauma or tenderness Tympanic Membrane ED: Yes TM's clear Eyes PERRL and EOMs intact bilaterally General Eye ED: Negative for pale conjunctiva or scleral icterus Neck no lymphadenopathy, supple and no JVD General: Negative for tenderness Chest Wall inspection of chest normal and palpation of chest normal Chest: Negative for tenderness Resp normal respiratory effort and clear to auscultation bilaterally Effort and Inspection: Negative for respiratory distress or pain with movement Auscultation: Negative for rhonchi, wheezes or diminished lung sounds Cardio regular rate, regular rhythm, S1 normal heart sound, S2 normal heart sound and no murmurs Peripheral Pulses: pulses 2+ throughout GI normal to inspection, nondistended, normoactive bowel sounds, soft to palpation, non-tender, non-distended and no masses Back/Spine no CVA tenderness and no thoracic nor lumbar tenderness Extremity normal to inspection General Extremety ED: Negative for edema General Extremity: Negative for edema Neuro oriented x3, CN's II-XII intact bilaterally, no sensory deficits noted and gait normal Neuro Narrative: Finger-nose and heel monique testing within normal limits, negative Romberg, negative for drift, fundi benign Sensorium / Orientation: awake, alert, oriented to person, oriented to place and oriented to time Motor Exam: strength 5/5 throughout and strength abnormal Psych mental status grossly normal Skin no rashes or lesions noted and no wounds MDM MDM MDM Narrative Medical decision making narrative: Patient presents with a headache that is typical of her migraines. An IV line was established. Patient was given a liter normal saline fluid bolus as well as Reglan, Benadryl, and Toradol. After an hour I reevaluated the patient and her headaches completely resolved. She is back to her baseline. This point I do not feel any imaging is indicated. Patient will be discharged home and advised to follow-up with her primary care physician or neurology on-call if symptoms persist or worsen. Discharge Plan Triage Chief Complaint: Headache Other Complaint: Neuro S/Sx ED Provider: Roderick Jorgensen Dx/Rx/DC Orders Clinical Impression: Migraine headache with aura Instructions: ED, Migraine (Classical) Prescriptions: No Action NK Primary Care Provider: Care Physician,No Primary Referrals: Vic Soto MD [Non-Staff -Ordering Privileges] - 5-7 Days Care Physician,No Primary [Primary Care Provider] - Disposition Disposition: Home, Self Care
[2023-01-19] MEDS: Ketorolac 30 MG/ML Syringe IV (11:45)
[2023-01-19] MEDS: Metoclopramide 10 MG/2 ML Vial IV (11:45)
[2023-01-19] MEDS: DiphenhydrAMINE 50 MG/ML Syringe 25 MG IV (11:45)
[2023-01-19] MEDS: 0.9% Normal Saline 1,000 ML 1000 ML IV (11:45)
[2023-01-19 13:10] VITALS: BP 104/63; PULSE 78; RESP 17; O2SAT 100
== END 2023-01-19 13:14 | disposition home or self-care (01) ==
PROVIDERS: Emergency Provider Emergency Medicine; Visit Provider Emergency Medicine
DX: G43.109 Migraine with aura, not intractable, without status migrainosus (principal)
CPT/HCPCS: 96361; 96374; 96375; 99284; J7030; A4216

== ENCOUNTER → 2023-10-20 | Outpatient (CLI) | payer OTHER, SELFPAY | END | disposition home or self-care (01) | LOC: LABSPEC 15:03 | PROVIDERS: Referring Provider Physician Assistant; Visit Provider Physician Assistant | DX: N39.0 Urinary tract infection, site not specified (principal) | CPT/HCPCS: 87086; 87088; 87186 ==

== ENCOUNTER → 2024-07-04 | Outpatient (CLI) | payer OTHER, SELFPAY ==
[2024-07-04 15:32] LABS: Absolute Neutrophil Count 3.8 X10^3/uL (2.0-7.7); Basophil# 0.03 X10^3/uL; Basophil% 0.5 % (0-1); Eosinophil# 0.06 X10^3/uL; Hematocrit 43.5 % (37-47); Hemoglobin 14.1 g/dL (12.0-15.0); Mean Corp Hgb Conc 32.4 g/dL (32-36); Mean Corpuscular Hgb 30.1 pg (27.0-32.0); Mean Corpuscular Volume 92.8 fL (81-99); Mean Platelet Vol. 8.8 fl (6.2-12.0); Monocyte# 0.36 X10^3/uL; Monocyte% 5.9 % (0-10); NRBC Flagged by Analyzer 0 % (0-5); Neutrophil # 3.77 X10^3/uL (2.7-7.7); Neutrophil % 61.4 % (47-70); Platelet Count 313 K/mm3 (150-450); RBC Distribution Width SD 41.1 fl (35.1-43.9); Red Blood Count 4.69 M/mm3 (4.2-5.4); White Blood Count 6.1 K/mm3 (4.4-11.0)
[2024-07-04 16:09] LABS: Hemoglobin A1c 5.1 % (3.8-5.6)
[2024-07-04 16:10] LABS: Free T3 2.7 pg/mL (2.18-3.98); T4 Total, Thyroxin 10.9 ug/dL (4.8-13.9)
[2024-07-04 16:19] LABS: hCG Titer Quant., Serum < 1 mIU/mL (1-3)
[2024-07-06 04:08] LABS: Thyroid Peroxidase AB 12 IU/mL (0-34)
== END | disposition home or self-care (01) ==
LOC: LAB 14:51
PROVIDERS: Referring Provider Advanced Practice Midwife; Visit Provider Advanced Practice Midwife
DX: N93.9 Abnormal uterine and vaginal bleeding, unspecified (principal)
CPT/HCPCS: 36415; 83036; 84436; 84439; 84443; 84481; 84702; 85025; 86376